=== PATIENT | female | born 1990 | race Caucasian/White ===

== ENCOUNTER 2025-07-20 09:51 | Outpatient (CLI) | payer MEDICAID, SELFPAY ==
--- OUTSIDE RECORDS SUMMARY | 2025-07-08 09:00 | XMS_ITS | Encounter Summary ---
Author Organization [facility] ([place], [place], [place], [place], [place]) Address [address] [place] [address] Care Team Providers Care Casting Director Name Role Phone Jennifer Rowe DO Primary Care Provider [phone] Carolann Marion APRN, CN Unavailable [phone] Reason for Referral * Ultrasound (Routine) - Closed Specialty Diagnoses / Procedures Referred By Sidra t Referred To Contact Radiology Diagnoses Abnormal mammogram Procedures US BREAST LEFT LIMITED Shanti Buck MD [address] [place] [address] Phone: tel: fax: [address] [address] Phone: tel: fax: Referral ID Status Reason Start Date Expiration Date Visits Re quested Visits Authorized [id number] Closed 06/28/2025 06/28/2026 1 1 Reason for Visit * Ultrasound (Routine) - Closed Specialty Diagnoses / Procedures Referred By Contjean-paul t Referred To Contact Radiology Diagnoses Abnormal mammogram Procedures [place] [address] [place] [address] Phone: tel: fax: [address] [address] [place] [address] Phone: tel: fax: Referral ID Status Reason Start Date Expiration Date Visits Re quested Visits Authorized [id number] Closed 06/28/2025 06/28/2026 1 1 Encounter Details Date Type Department Care Team (Latest Contact Info) Description 07/08/2025 10:00 AM EDT - 07/08/2025 10:59 PM EDT Hospital Encounter [facility] Breast Care [address] [facility] [address] [place] [address] Jennifer Roew, [address] [place] [address] Abnormal mammogram Discharge Disposition: Home [...] Do you speak a language other than Fijian at [facility]? No 03/09/2024 Do you want help with [...] Care Everywhere. * Mood and Anxiety Disorder (Fijian) documented in this encounter Medications at Time [...] as of this encounter Plan of Treatment Upcoming Encounters Date Type Department Care Team (Late st Contact Info) Description 07/26/2025 7:30 AM EST Appointment [address] [address] documented as of this encounter Procedures Procedure [...] recommended imaging studies/procedures. us Shanti Buck MD [facility] US ORDERABLES Final Result documented in this encounter Visit Diagnoses Diagnosis Abnormal mammogram Abnormal mammogram, unspecified documented in this encounter Care Teams Casting Director Relationship Specialty Start Date End Date Jennifer Rowe DO [address] [place] [address] PCP - General Obstetrics and Gynecology 10/11/24 Carolann Marion, HARNESS AND BAG INSPECTOR, CNM [address] [place] [address] Perianesthesia Manager Certified Nurse Perianesthesia Manager 10/11/24 documented as of this encounter
[2025-07-20 20:18] LABS: Coronavirus 19, PCR Not Detected (NotDetected); Influenza A, PCR Not Detected (NotDetected); Influenza B, PCR Not Detected (NotDetected)
--- OUTSIDE RECORDS SUMMARY | 2025-07-22 10:00 | XMS_ITS | Encounter Summary ---
Author Organization [facility] ([place], [place], [place], [place], [place]) Address [address] [place] [address] Care Team Providers Care Data Network Architect Name Role Phone Jennifer Rowe DO Primary Care Provider [phone] Carolann Marion APRN, CN Unavailable [phone] Encounter Details Date Type Department Care Team (Late st Contact Info) Description 11/18/2019 Transcribed Document [facility] [place] [facility] [place] [address] ProviderMiguel MD [address] [place] [address] Social History Tobacco Use Types Packs/Day Years Used Date Smoking Tobacco: Never Assessed Comments Unknown Sex and Gender Information Value Date Recorded Sex Assigned at Not on file Legal Sex Female 5:46 PM CDT Gender Identity Not on file Sexual Orientation Not on file documented as of this encounter Miscellaneous Notes * Cerner Conversion Note - Miguel ProviderMD - 11/18/2019 12:00 AM CALCULATING MACHINE MECHANIC Pain Assessment Entered On: 11/17/2019 23:27 EST Performed On: 11/18/2019 0:27 EST by CHAIM ELIAS RN Intervention Information: ibuprofen Performed by CHAIM ELIAS RN on 11/17/2019 23:27:00 EST ibuprofen,600mg Oral Pain Assessment Pain Assessment : Follow-up assessment Pain Improved by Intervention : Yes CHAIM ELIAS RN - 11/17/2019 23:27 EST Electronically signed by [facility] Conversion Manager Wound Cerner at 12/29/2022 8:17 PM CDT documented in this encounter Plan of Treatment Upcoming Encounters Date Type Department Care Team (Late st Contact Info) Description 07/26/2025 7:30 AM EST Appointment [facility] [address] [facility] [address] [place] [address] documented as of this encounter Visit Diagnoses Not on filedocumented in this encounter Care Teams Data Network Architect Relationship Specialty Start Date End Date Jennifer Rowe DO [address] [place] [address] PCP - General Obstetrics and Gynecology 10/11/24 Carolann Marion, TOMI, CNM [address] [place] [address] Direct Mail Clerk Certified Nurse Direct Mail Clerk 10/11/24 documented as of this encounter
--- OUTSIDE RECORDS SUMMARY | 2025-07-22 10:00 | XMS_ITS | Encounter Summary ---
Author Organization [employer] ([place], [place], [place], [place], [place]) Address [address] [place] [address] Care Team Providers Care Milker Machine Name Role Phone RoweJennifer devi DO Primary Care Provider [phone] Carolann Marion APRN, CN Unavailable [phone] Encounter Details Date Type Department Care Team (Late st Contact Info) Description 11/18/2019 Transcribed Document [facility] [place] [address] ProviderMiguel MD [address] [place] [id number] Social History Tobacco Use Types Packs/Day Years Used Date Smoking Tobacco: Never Assessed Comments Unknown Sex and Gender Information Value Date Recorded Sex Assigned at Not on file Legal Sex Female 5:46 PM CDT Gender Identity Not on file Sexual Orientation Not on file documented as of this encounter Miscellaneous Notes * Cerner Conversion Note - Miguel ProviderMD - 11/18/2019 9:40 AM WREATH AND GARLAND MAKER Patient: LOVELY HARGROVE Age: 29 Years Sex: Female : 1990 Chief Complaint: PO PP Day #2, s/p emergency primary c/s for breech presentation Subjective Pt has no c/o today, denies s/s PPH or PPD. Pt states she is ambulating and voiding without difficulty. Pt states she is breast feeding and baby is doing well. Pt states her pain is well controlled. Review of Systems VSS, Afebrile Objective General: Pt is AA&ox4, in NAD, wd/wn, responds appropriately Breast: soft, non tender Cardiovascular: RRR without gallop or rub Lungs: CTA, b/l A&P Abdomen: soft, mildly tender over incision Ext: MAEW, no peripheral edema Incision/Episiotomy/Lac: covered with dry dressing Assessment/Plan PO PP Day #2, will continue current POC 38 weeks gestation of Z3A.38 Bariatric surgery status complicating childbirth O99.844 Breech presentation O32.1XX0 delivery delivered O82 Encounter for supervision of normal first , unspecified trimester Z34.00, Encounter for supervision of normal first , unspecified trimester Z34.00 Hypothyroid in , antepartum O99.280 Single live Z37.0 1. Encourage ambulation/incentive spirometry every 15 minutes 2. DVT Prophylaxis 3. Tobacco abuse assessment: Smoker Yes(_)/No(X), If yes, plan: 4. control discussion and choice: will discuss at PPV 5. Feeding choice: Breast 6. Vaccinations: 7. Return appointment: 1-[address] Rowe 8. depression follow-up plan: at d/c and PPV 9. Two hour OGTT scheduled for 6 week visit: Yes(_)/No(_) Infant Data [place] (X) NICU (_) Medications Inpatient aluminum hydroxide/magnesium hydroxide/simethicone 200 mg-200 mg-20 mg/5 mL oral suspension, 30 mL, Oral, Q4H, PRN Ambien, 5 mg= 1 Tab, Oral, At Bedtime, PRN Colace, 100 mg= 1 Cap, Oral, TID Cytotec, 1000 mcg= 5 Tab, Rectal, 1-Time, PRN Dermoplast 20% topical spray, 1 [place], Topical, Q4H, PRN Dextrose 5% in Lactated Ringers intravenous solution 1,000 mL, 1000 mL, IntraVENous Dulcolax Laxative, 10 mg= 1 Supp, Rectal, BID, PRN Hemabate, 250 mcg= 1 mL, IntraMuscular, 1-Time, PRN hydrocortisone-pramoxine 1%-1% rectal cream, 1 Application, Rectal, Q4H, PRN ibuprofen, 600 mg= 1 Tab, Oral, Q6H lanolin topical ointment, 1 Application, Topical, See Comment, PRN measles/mumps/rubella virus vaccine, 0.5 mL, SubCutaneous, 1-Time, PRN Methergine, 0.2 mg= 1 mL, IntraMuscular, 1-Time, PRN Mylicon, 80 mg= 1 Tab, Chew, TID Normal Saline Flush, 10 mL, IV Push, See Comment, PRN Pepcid, 20 mg= 1 Tab, Oral, Q12H, PRN Percocet 5/325 oral tablet, 1 Tab, Oral, Q4H, PRN Percocet 5/325 oral tablet, 2 Tab, Oral, Q4H, PRN Phenergan, 12.5 mg= 0.5 mL, IV Push, Q6H, PRN Multivitamins oral tablet, 1 Tab, Oral, Daily RHo (D) immune globulin, 1500 Units= 2 mL, IntraMuscular, 1-Time, PRN tetanus/diphth/pertuss (Tdap) adult/adol, 0.5 mL, IntraMuscular, 1-Time, PRN Tucks 50% topical pad, 1 Each, Topical, See Comment, PRN Tylenol, 1000 mg= 2 Tab, Oral, Q6H, PRN Zofran, 4 mg= 2 mL, IV Push, Q4H, PRN Home multivitamin, 1 Tab, Oral, Daily Non Formulary med Synthroid, 50 mcg, Oral, Daily Zofran ODT 4 mg oral tablet, disintegrating, 4 mg= 1 Tab, Oral, Q6H Problem List/Past Medical History Ongoing Acid reflux Adenomyosis Heavy periods with cramping Hx: Migraine headaches Hypothyroid Obesity PCOS (polycystic ovarian syndrome) Pelvic pain in female Psoriasis Wears glasses Historical No qualifying data Lab Results NOV 16 05:35 \ L 9.9 / H 11.7 190 / L 29.9 \ documented in this encounter Plan of Treatment Upcoming Encounters Date Type Department Care Team (Late st Contact Info) Description 07/26/2025 7:30 AM EST Appointment [address] [address] documented as of this encounter Visit Diagnoses Not on filedocumented in this encounter Care Teams Milker Machine Relationship Specialty Start Date End Date Jennifer Rowe DO [address] [place] [address] PCP - General Obstetrics and Gynecology 10/11/24 Carolann Marion, SIGNAL MAINTAINER, CNM [address] [place] [address] Cloth Weigher Certified Nurse Cloth Weigher 10/11/24 documented as of this encounter
--- OUTSIDE RECORDS SUMMARY | 2025-07-22 10:00 | XMS_ITS | Encounter Summary ---
Author Organization [facility] ([place], [place], [place], [place], [place]) Address [address] [place] [address] Care Team Providers Care Resource Efficiency Manager Name Role Phone Jennifer Rowe DO Primary Care Provider [phone] Carolann Marion APRN, GERTRUDE Unavailable [phone] Encounter Details Date Type Department Care Team (Late st Contact Info) Description 11/26/2019 Transcribed Document [facility] [place] [facility] [place] [address] ProviderMiguel MD [address] [place] [address] Social History Tobacco Use Types Packs/Day Years Used Date Smoking Tobacco: Never Assessed Comments Unknown Sex and Gender Information Value Date Recorded Sex Assigned at Not on file Legal Sex Female 5:46 PM CDT Gender Identity Not on file Sexual Orientation Not on file documented as of this encounter Miscellaneous Notes * Cerner Conversion Note - Miguel ProviderMD - 11/26/2019 12:15 PM CDT HISTORY AND PHYSICAL UPDATE Update Required: The appropriate section below MUST be completed prior to authentication. ____X_UPDATE: The History and Physical performed by ___Jennifer Lugo DO on ___11/26/19 has been reviewed, patient was examined, and no change has occurred since the History and Physical was completed. OR UPDATE: The History and Physical performed by on has been reviewed and patient examined. The only significant change(s) in the patient's history or condition since the History and Physical was completed are indicated below: Significant Changes: Electronically signed by [facility] Conversion Nurse Practitioner Physicians Assistant Cerner at 12/29/2022 8:17 PM CDT documented in this encounter Plan of Treatment Upcoming Encounters Date Type Department Care Team (Late st Contact Info) Description 07/26/2025 7:30 AM EST Appointment [facility] [address] [facility] [address] [place] [address] documented as of this encounter Visit Diagnoses Not on filedocumented in this encounter Care Teams Resource Efficiency Manager Relationship Specialty Start Date End Date Jennifer Rowe DO [address] [place] [address] PCP - General Obstetrics and Gynecology 10/11/24 Carolann Marion, AUXILIARY POWERPLANT OPERATOR, CNM [address] [place] [address] Supervisor [employer] Certified Nurse Supervisor [employer] 10/11/24 documented as of this encounter
--- OUTSIDE RECORDS SUMMARY | 2025-07-22 10:00 | XMS_ITS | Encounter Summary ---
Author Organization [employer] ([place], [place], [place], [place], [place]) Address [address] [place] [address] Care Team Providers Care Director Medical Science Name Role Phone Jennifer Rowe DO Primary Care Provider [phone] Carolann Marion APRN, CN Unavailable [phone] Encounter Details Date Type Department Care Team (Late st Contact Info) Description 11/16/2019 Transcribed Document [facility] [place] [facility] [place] [address] ProviderMiguel MD [address] [place] [address] Social History Tobacco Use Types Packs/Day Years Used Date Smoking Tobacco: Never Assessed Comments Unknown Sex and Gender Information Value Date Recorded Sex Assigned at Not on file Legal Sex Female 5:46 PM CDT Gender Identity Not on file Sexual Orientation Not on file documented as of this encounter Miscellaneous Notes * Cerner Conversion Note - Historical ProviderMD - 11/16/2019 1:37 AM BLACKTOP SPREADER Admission Data, OB Entered On: 11/16/2019 1:39 EST Performed On: 11/16/2019 1:37 EST by Ratna White RN Advance Directive Patient has Advance Directive *Q : No, patient refuses Advance Directive information Ratna White RN - 11/16/2019 1:37 EST Height and Weight Height Source : Measured Height Entry Format : [place] Height, Feet : 5 ft(Converted to: 152 cm, 60 Inch) Clinical Height : 152.4 cm Height, Inches : 0 Inch(Converted to: 0 ft 0 Inch, 0.00 cm) Weight Source : Standing scale Weight Entry Format : [place] Weight, Pounds : 185 lb Clinical Dosing Weight : 84.09 kg Body Surface Area (BSA) : 1.81 m2 Body Mass Index : 36.2 kg/m2 (HI) [place] Body Weight (IBW) : 45.16 kg Ratna White RN - 11/16/2019 1:37 EST Health Histories Smoking Status : Never (less than 100 in lifetime; none in last 30 days) Smokeless Tobacco Status : Never Ratna White RN - 11/16/2019 1:37 EST Social History (As Of: 11/16/2019 01:39:26 EST) Tobacco: Smoking Status Never smoker. (Last Updated: 09/05/2014 04:10:11 EST by SAMMI CHI RN) Alcohol: Use in Last 12 Months: No. (Last Updated: 09/05/2014 04:10:15 EST by SAMMI CHI RN) Substance Abuse: Drug Use Hx: No. Use in Last 12 Months: No. (Last Updated: 12/27/2016 12:43:05 EDT by Shreya Ohara RN) Nutrition/Health: Type of diet: low carb. Caffeine intake amount: none. Wants to lose weight: Yes. (Last Updated: 09/03/2017 09:35:07 EST by GEOVANY DAVIDSON, TORIBIO) Home/Environment: Lives with roommate and her children. Living situation: Home/Independent. Alcohol abuse in household: No. Substance abuse in household: No. Smoker in household: No. Injuries/Abuse/Neglect in household: No. Family/Friends available for support: Yes. (Last Updated: 09/03/2017 09:35:58 EST by GEOVANY DAVIDSON, TORIBIO) Employment/School: Employed (Last Updated: 09/05/2014 04:11:22 EST by CARLITA LOPEZ MD) Tetanus Immunization Status Previous Tetanus Immunizations : No qualifying data available. Tetanus Immunization : Less than 5 years Ratna White RN - 11/16/2019 1:37 EST Influenza Vaccine Asmt, Adult Previous Vaccines from Immunization Schedule : No qualifying data available. Influenza Immunization, Current Season : Yes Ratna White RN - 11/16/2019 1:37 EST Pneumococcal Vaccine Previous Vaccines from Immunization Schedule : No qualifying data available. Pneumonia Immunization Received : No Pneumococcal Risk Assessment < Age 65 : None Ratna White RN - 11/16/2019 1:37 EST Order Details Transport Mode Order Detail : Ambulatory Isolation Precautions Order Detail : Standard Precautions Order Detail : 1 IV Order Detail : 1 Oxygen Order Detail : 0 Nurse Collect Order Detail : 0 Lift/Transfer : Independent Central Line Order Detail : No Room Service : Appropriate Arterial Line : No Ratna White RN - 11/16/2019 1:37 EST Vital Measurements Temperature Source : Oral Temperature Mode : Fahrenheit Temperature, Fahrenheit : 98.2 Deg F Clinical Temperature, C : 36.8 Deg C Pulse Method : Non-Invasive BP Device Heart Rate, Apical : 92 bpm Pulse Rhythm : Regular Respiratory Rate : 15 Breaths/Min Blood Pressure Location : Arm, left upper Blood Pressure Source : Doppler Blood Pressure Position : Sitting Systolic Blood Pressure : 135 mmHg Diastolic Blood Pressure : 89 mmHg Ratna White RN - 11/16/2019 1:37 EST Infectious Disease History Physical contact outside [place] in the last 30 days : No Infectious Disease History : Chicken pox/Shingles, Influenza Ratna White RN - 11/16/2019 1:37 EST Ovid Suicide Severity Rating Scale (C-SSRS) CSSRS Past Month Wish to be : No CSSRS Past Month Suicidal Thoughts : No CSSRS Lifetime Suicide Behavior : No Suicide Severity Rating Score : 0 Suicide Severity Rating : No Additional Care Required at this time Ratna White RN - 11/16/2019 1:37 EST documented in this encounter Plan of Treatment Upcoming Encounters Date Type Department Care Team (Late st Contact Info) Description 07/26/2025 7:30 AM EST Appointment [facility] [address] [place] [address] documented as of this encounter Visit Diagnoses Not on filedocumented in this encounter Care Teams Director Medical Science Relationship Specialty Start Date End Date Jennifer Rowe DO [address] [place] [address] PCP - General Obstetrics and Gynecology 10/11/24 Carolann Marion APRN, CNEduard [address] [address] Plumbing Assembler Certified Nurse Plumbing Assembler 10/11/24 documented as of this encounter
--- OUTSIDE RECORDS SUMMARY | 2025-07-22 10:00 | XMS_ITS | Encounter Summary ---
Author Organization [employer] ([place], [place], [place], [place], [place]) Address [address] [place] [address] Care Team Providers Care Stock Fitter Name Role Phone Jennifer Rowe DO Primary Care Provider [phone] Carolann Marion APRN, CN Unavailable [phone] Encounter Details Date Type Department Care Team (Late st Contact Info) Description 11/18/2019 Transcribed Document [facility] [place] Medicine [facility]ly [facility] [place] [address] ProviderMiguel MD [address] [place] [address] Social History Tobacco Use Types Packs/Day Years Used Date Smoking Tobacco: Never Assessed Comments Unknown Sex and Gender Information Value Date Recorded Sex Assigned at Not on file Legal Sex Female 5:46 PM CDT Gender Identity Not on file Sexual Orientation Not on file documented as of this encounter Miscellaneous Notes * Cerner Conversion Note - Miguel ProviderMD - 11/18/2019 6:00 AM ASSEMBLY LINE UPHOLSTERER Pain Assessment Entered On: 11/18/2019 5:29 EST Performed On: 11/18/2019 6:28 EST by CHAIM ELIAS RN Intervention Information: ibuprofen Performed by CHAIM ELIAS RN on 11/18/2019 05:28:00 EST ibuprofen,600mg Oral Pain Assessment Pain Assessment : Follow-up assessment Pain Improved by Intervention : Yes CHAIM ELIAS RN - 11/18/2019 5:28 EST Electronically signed by [facility] Conversion Traffic Control Signaler Cerner at 12/29/2022 8:34 PM CDT documented in this encounter Plan of Treatment Upcoming Encounters Date Type Department Care Team (Late st Contact Info) Description 07/26/2025 7:30 AM EST Appointment [facility] [address] [facility] [address] [place] [address] documented as of this encounter Visit Diagnoses Not on filedocumented in this encounter Care Teams Stock Fitter Relationship Specialty Start Date End Date Jennifer Rowe DO [address] [place] [address] PCP - General Obstetrics and Gynecology 10/11/24 Carolann Marion, TOMI, CNM [address] [place] [address] Field Investigator Certified Nurse Field Investigator 10/11/24 documented as of this encounter
--- OUTSIDE RECORDS SUMMARY | 2025-07-22 10:00 | XMS_ITS | Encounter Summary ---
Author Organization [employer] ([place], [place], [place], [place], [place]) Address [address] [place] [address] Care Team Providers Care Factory Maintenance Manager Name Role Phone Rowe, Amy Primary Care Provider [phone] Carolann Marion APRN, CN Unavailable [phone] Encounter Details Date Type Department Care Team (Late st Contact Info) Description 11/19/2019 Transcribed Document [facility] [place] [facility] [place] [address] ProviderMiguel MD [address] [place] [id number] Social History Tobacco Use Types Packs/Day Years Used Date Smoking Tobacco: Never Assessed Comments Unknown Sex and Gender Information Value Date Recorded Sex Assigned at Not on file Legal Sex Female 5:46 PM CDT Gender Identity Not on file Sexual Orientation Not on file documented as of this encounter Miscellaneous Notes * Cerner Conversion Note - Miguel ProviderMD - 11/19/2019 9:40 AM HOSPITAL SOCIAL WORKER Patient: LOVELY [place]GR[place] Age: 29 Years Sex: Female : 1990 Admit Date 11/16/2019 01:11 Discharge Date 11/19/2019 11:35 Primary Care Provider JIME[facility] DAS [facility] Discharge Diagnosis Single live 11/17/2019 Z37.0 ICD-10-CM delivery delivered 11/16/2019 O82 ICD-10-CM Procedures Emergent primary c/s for breech presentation Studies H&H 9.9.9 Reason for Hospitalization Labor Hospital Course C/S with PP care Vital Signs Oxygen Settings (Last) No qualifying data available. VSS, Afebrile Physical Exam Pt has no c/o today, denies s/s PPH or PPD. Pt states she is breast feeding and baby is doing well. Pt states she is voiding and ambulating without difficulty. Pt states her pain is well controlled. General: Pt is AA&ox4, in NAD, wd/wn, responds appropriately CV: RRR without gallop or rub LUNGS: CTA, b/l A&P BREASTS: soft, non tender ABD: soft non tender, uterus is firm at 1 below MAEW, no peripheral edema Discharge Disposition Home Discharge Follow Up JENNIFER ROWE DO - 08:45 AM Discharge Medications (8) Active Colace 100 mg oral capsule 100 mg = 1 Cap, Oral, TID Dermoplast 20% topical spray 1 [place], PRN, Topical, Q4H hydrocortisone-pramoxine 1%-1% rectal cream 1 Application, PRN, Rectal, Q4H lanolin topical ointment , PRN, Topical, See Comment multivitamin 1 Tab, Oral, Daily Non Formulary med Synthroid 50 mcg, Oral, Daily Tucks 50% topical pad 1 Each, PRN, Topical, See Comment Rx IB 800mg 1 po every 8 hours as needed, #30 with 2 refills, Percocet 5/325mg 1 po every 6 hours as needed, #12 no refill Code Status Start: 11/16/19 9:29:00 EST, Full Code, Continuous Order Condition on Discharge Stable Consulting Physicians DORIS HERNANDES MD-ANS Current Diet Order Diet, Adult - Ordered -- Start: 11/16/19 23:57:00 EST, Regular Diet, Isolation: Standard Precautions Patient Discharge Summary Orders Sooner if problems Follow Up Labs/Studies None Pending Labs No Labs on Record Time Spent on Discharge < 30 minutes documented in this encounter Plan of Treatment Upcoming Encounters Date Type Department Care Team (Late st Contact Info) Description 07/26/2025 7:30 AM EST Appointment [address] [place] [address] documented as of this encounter Visit Diagnoses Not on filedocumented in this encounter Care Teams Factory Maintenance Manager Relationship Specialty Start Date End Date Jennifer Rowe DO [address] [place] [address] PCP - General Obstetrics and Gynecology 10/11/24 Carolann Marion, TOMI, CNM [address] [place] [address] Teacher Asst Certified Nurse Teacher Asst 10/11/24 documented as of this encounter
--- OUTSIDE RECORDS SUMMARY | 2025-07-22 10:00 | XMS_ITS | Encounter Summary ---
Author Organization [employer] ([place], [place], [place], [place], [place]) Address [address] [place] [address] Care Team Providers Care Assembly Line Upholsterer Name Role Phone RoweJennifer devi DO Primary Care Provider [phone] Carolann Marion APRN, CN Unavailable [phone] Encounter Details Date Type Department Care Team (Late st Contact Info) Description 11/19/2019 Transcribed Document [facility] [place] [facility] [place] [address] ProviderMiguel MD [address] [place] [id number] Social History Tobacco Use Types Packs/Day Years Used Date Smoking Tobacco: Never Assessed Comments Unknown Sex and Gender Information Value Date Recorded Sex Assigned at Not on file Legal Sex Female 5:46 PM CDT Gender Identity Not on file Sexual Orientation Not on file documented as of this encounter Miscellaneous Notes * Cerner Conversion Note - Miguel Juarez MD - 11/19/2019 10:00 AM [facility] ARCHITECT Patient Education Materials Follows: Delivery, Care After Refer to this sheet in the next few weeks. These instructions provide you with information about caring for yourself after your procedure. Your health care provider may also give you more specific instructions. Your treatment has been planned according to current medical practices, but problems sometimes occur. Call your health care provider if you have any problems or questions after your procedure. What can I expect after the procedure? After the procedure, it is common to have: ??? A small amount of blood or clear fluid coming from the incision. ??? Some redness, swelling, and pain in your incision area. ??? Some abdominal pain and soreness. ??? Vaginal bleeding (lochia). ??? Pelvic cramps. ??? Fatigue. Follow these instructions at home: Incision care ??? Follow instructions from your health care provider about how to take care of your incision. Make sure you: ? Wash your hands with soap and water before you change your bandage (dressing). If soap and water are not available, use hand branch chief. ? If you have a dressing, change it as told by your health care provider. ? Leave stitches (sutures), skin arthur, skin glue, or adhesive strips in place. These skin closures may need to stay in place for 2 weeks or longer. If adhesive strip edges start to loosen and curl up, you may trim the loose edges. Do not remove adhesive strips completely unless your health care provider tells you to do that. ??? Check your incision area every day for signs of infection. Check for: ? More redness, swelling, or pain. ? More fluid or blood. ? Warmth. ? Pus or a bad smell. ??? When you cough or sneeze, hug a pillow. This helps with pain and decreases the chance of your incision opening up (dehiscing). Do this until your incision heals. Medicines ??? Take nwht-upu-ixmjcug and prescription medicines only as told by your health care provider. ??? If you were prescribed an antibiotic medicine, take it as told by your health care provider. Do not stop taking the antibiotic until it is finished. Driving ??? Do not drive or operate heavy machinery while taking prescription pain medicine. Lifestyle ??? Do not drink alcohol. This is especially important if you are or taking pain medicine. ??? Do not use tobacco products, including cigarettes, chewing tobacco, or e-cigarettes. If you need help quitting, ask your health care provider. Tobacco can delay wound healing. Eating and drinking ??? Drink at least 8 eight-ounce glasses of water every day unless told not to by your health care provider. If you breastfeed, you may need to drink more water than this. ??? Eat high-fiber foods every day. These foods may help prevent or relieve constipation. High-fiber foods include: ? Whole grain cereals and breads. ? Brown rice. ? Beans. ? Fresh fruits and vegetables. Activity ??? Return to your normal activities as told by your health care provider. Ask your health care provider what activities are safe for you. ??? Rest as much as possible. Try to rest or take a nap while your baby is sleeping. ??? Do not lift anything that is heavier than your baby or 10 lb (4.5 kg) as told by your health care provider. ??? Ask your health care provider when you can engage in sexual activity. This may depend on your: ? Risk of infection. ? Healing rate. ? Comfort and desire to engage in sexual activity. Bathing ??? Do not take baths, swim, or use a hot tub until your health care provider approves. Ask your health care provider if you can take showers. You may only be allowed to take sponge baths until your incision heals. General instructions ??? Do not use tampons or douches until your health care provider approves. ??? Wear: ? Loose, comfortable clothing. ? A supportive and well-fitting bra. ??? Watch for any blood clots that may pass from your vagina. These may look like clumps of dark red, brown, or black discharge. ??? Keep your perineum clean and dry as told by your health care provider. ??? Wipe from front to back when you use the toilet. ??? If possible, have someone help you care for your baby and help with household activities for a few days after you leave the hospital. ??? Keep all follow-up visits for you and your baby as told by your health care provider. This is important. Contact a health care provider if: ??? You have: ? Bad-smelling vaginal discharge. ? Difficulty urinating. ? Pain when urinating. ? A sudden increase or decrease in the frequency of your bowel movements. ? More redness, swelling, or pain around your incision. ? More fluid or blood coming from your incision. ? Pus or a bad smell coming from your incision. ? A fever. ? A rash. ? Little or no interest in activities you used to enjoy. ? Questions about caring for yourself or your baby. ? Nausea. ??? Your incision feels warm to the touch. ??? Your breasts turn red or become painful or hard. ??? You feel unusually sad or worried. ??? You vomit. ??? You pass large blood clots from your vagina. If you pass a blood clot, save it to show to your health care provider. Do not flush blood clots down the toilet without showing your health care provider. ??? You urinate more than usual. ??? You are dizzy or light-headed. ??? You have not breastfed and have not had a menstrual period for 12 weeks after delivery. ??? You stopped and have not had a menstrual period for 12 weeks after stopping . Get help right away if: ??? You have: ? Pain that does not go away or get better with medicine. ? Chest pain. ? Difficulty breathing. ? Blurred vision or spots in your vision. ? Thoughts about hurting yourself or your baby. ? New pain in your abdomen or in one of your legs. ? A severe headache. ??? You faint. ??? You bleed from your vagina so much that you fill two sanitary pads in one hour. This information is not intended to replace advice given to you by your health care provider. Make sure you discuss any questions you have with your health care provider. Document Released: 05/24/2003 Document Revised: 10/04/2017 Document Reviewed: 08/05/2016 [employer] Interactive Patient Education ? 2018 [employer] Choosing to breastfeed is one of the best decisions you can make for yourself and your baby. A change in hormones during causes your breasts to make breast milk in your milk-producing glands. Hormones prevent breast milk from being released before your baby is born. They also prompt milk flow after . Once has begun, thoughts of your baby, as well as his or her sucking or crying, can stimulate the release of milk from your milk-producing glands. Benefits of Research shows that offers many health benefits for infants and mothers. It also offers a cost-free and convenient way to feed your baby. For your baby ??? Your first milk (colostrum) helps your baby's digestive system to function better. ??? Special cells in your milk (antibodies) help your baby to fight off infections. ??? Breastfed babies are less likely to develop asthma, allergies, obesity, or type 2 diabetes. They are also at lower risk for sudden infant syndrome (SIDS). ??? Nutrients in breast milk are better able to meet your baby?s needs compared to infant formula. ??? Breast milk improves your baby's brain development. For you ??? helps to create a very special lucero between you and your baby. ??? is convenient. Breast milk costs nothing and is always available at the correct temperature. ??? helps to burn calories. It helps you to lose the weight that you gained during . ??? makes your uterus return faster to its size before . It also slows bleeding (lochia) after you give . ??? helps to lower your risk of developing type 2 diabetes, osteoporosis, rheumatoid arthritis, cardiovascular disease, and breast, ovarian, uterine, and endometrial cancer later in life. basics Starting ??? Find a comfortable place to sit or lie down, with your neck and back well-supported. ??? Place a pillow or a rolled-up blanket under your baby to bring him or her to the level of your breast (if you are seated). Nursing pillows are specially designed to help support your arms and your baby while you breastfeed. ??? Make sure that your baby's tummy (abdomen) is facing your abdomen. ??? Gently massage your breast. With your fingertips, massage from the outer edges of your breast inward toward the nipple. This encourages milk flow. If your milk flows slowly, you may need to continue this action during the feeding. ??? Support your breast with 4 fingers underneath and your thumb above your nipple (make the letter C with your hand). Make sure your fingers are well away from your nipple and your baby?s mouth. ??? Stroke your baby's lips gently with your finger or nipple. ??? When your baby's mouth is open wide enough, quickly bring your baby to your breast, placing your entire nipple and as much of the areola as possible into your baby's mouth. The areola is the colored area around your nipple. ? More areola should be visible above your baby's upper lip than below the lower lip. ? Your baby's lips should be opened and extended outward (flanged) to ensure an adequate, comfortable latch. ? Your baby's tongue should be between his or her lower gum and your breast. ??? Make sure that your baby's mouth is correctly positioned around your nipple (latched). Your baby's lips should create a seal on your breast and be turned out (everted). ??? It is common for your baby to suck about 2?3 minutes in order to start the flow of breast milk. Latching Teaching your baby how to latch onto your breast properly is very important. An improper latch can cause nipple pain, decreased milk supply, and poor weight gain in your baby. Also, if your baby is not latched onto your nipple properly, he or she may swallow some air during feeding. This can make your baby fussy. Burping your baby when you switch breasts during the feeding can help to get rid of the air. However, teaching your baby to latch on properly is still the best way to prevent fussiness from swallowing air while . Signs that your baby has successfully latched onto your nipple ??? Silent tugging or silent sucking, without causing you pain. Infant's lips should be extended outward (flanged). ??? Swallowing heard between every 3?4 sucks once your milk has started to flow (after your let-down milk reflex occurs). ??? Muscle movement above and in front of his or her ears while sucking. Signs that your baby has not successfully latched onto your nipple ??? Sucking sounds or smacking sounds from your baby while . ??? Nipple pain. If you think your baby has not latched on correctly, slip your finger into the corner of your baby?s mouth to break the suction and place it between your baby's gums. Attempt to start again. Signs of successful Signs from your baby ??? Your baby will gradually decrease the number of sucks or will completely stop sucking. ??? Your baby will fall asleep. ??? Your baby's body will relax. ??? Your baby will retain a small amount of milk in his or her mouth. ??? Your baby will let go of your breast by himself or herself. Signs from you ??? Breasts that have increased in firmness, weight, and size 1?3 hours after feeding. ??? Breasts that are softer immediately after . ??? Increased milk volume, as well as a change in milk consistency and color by the fifth day of . ??? Nipples that are not sore, cracked, or bleeding. Signs that your baby is getting enough milk ??? Wetting at least 1?2 diapers during the first 24 hours after . ??? Wetting at least 5?6 diapers every 24 hours for the first week after . The urine should be clear or pale yellow by the age of 5 days. ??? Wetting 6?8 diapers every 24 hours as your baby continues to grow and develop. ??? At least 3 stools in a 24-hour period by the age of 5 days. The stool should be soft and yellow. ??? At least 3 stools in a 24-hour period by the age of 7 days. The stool should be seedy and yellow. ??? No loss of weight greater than 10% of weight during the first 3 days of life. ??? Average weight gain of 4?7 oz (113?198 g) per week after the age of 4 days. ??? Consistent daily weight gain by the age of 5 days, without weight loss after the age of 2 weeks. After a feeding, your baby may spit up a small amount of milk. This is normal. frequency and duration Frequent feeding will help you make more milk and can prevent sore nipples and extremely full breasts (breast engorgement). Breastfeed when you feel the need to reduce the fullness of your breasts or when your baby shows signs of hunger. This is called on demand. Signs that your baby is hungry include: ??? Increased alertness, activity, or restlessness. ??? Movement of the head from side to side. ??? Opening of the mouth when the corner of the mouth or cheek is stroked (rooting). ??? Increased sucking sounds, smacking lips, cooing, sighing, or squeaking. ??? Hplg-xr-pwllp movements and sucking on fingers or hands. ??? Fussing or crying. Avoid introducing a pacifier to your baby in the first 4-6 weeks after your baby is born. After this time, you may choose to use a pacifier. Research has shown that pacifier use during the first year of a baby's life decreases the risk of sudden infant syndrome (SIDS). Allow your baby to feed on each breast as long as he or she wants. When your baby unlatches or falls asleep while feeding from the first breast, offer the second breast. Because newborns are often sleepy in the first few weeks of life, you may need to awaken your baby to get him or her to feed. times will vary from baby to baby. However, the following rules can serve as a guide to help you make sure that your baby is properly fed: ??? Newborns (babies 4 weeks of age or younger) may breastfeed every 1?3 hours. ??? Newborns should not go without for longer than 3 hours during the day or 5 hours during the night. ??? You should breastfeed your baby a minimum of 8 times in a 24-hour period. Breast milk pumping Pumping and storing breast milk allows you to make sure that your baby is exclusively fed your breast milk, even at times when you are unable to breastfeed. This is especially important if you go back to work while you are still , or if you are not able to be present during feedings. Your bus info consultant can help you find a method of pumping that works best for you and give you guidelines about how long it is safe to store breast milk. Caring for your breasts while you breastfeed Nipples can become dry, cracked, and sore while . The following recommendations can help keep your breasts moisturized and healthy: ??? Avoid using soap on your nipples. ??? Wear a supportive bra designed especially for nursing. Avoid wearing underwire-style bras or extremely tight bras (sports bras). ??? Air-dry your nipples for 3?4 minutes after each feeding. ??? Use only cotton bra pads to absorb leaked breast milk. Leaking of breast milk between feedings is normal. ??? Use lanolin on your nipples after . Lanolin helps to maintain your skin's normal moisture barrier. Pure lanolin is not harmful (not toxic) to your baby. You may also hand express a few drops of breast milk and gently massage that milk into your nipples and allow the milk to air-dry. In the first few weeks after giving , some women experience breast engorgement. Engorgement can make your breasts feel heavy, warm, and tender to the touch. Engorgement peaks within 3?5 days after you give . The following recommendations can help to ease engorgement: ??? Completely empty your breasts while or pumping. You may want to start by applying warm, moist heat (in the shower or with warm, water-soaked hand towels) just before feeding or pumping. This increases circulation and helps the milk flow. If your baby does not completely empty your breasts while , pump any extra milk after he or she is finished. ??? Apply ice packs to your breasts immediately after or pumping, unless this is too uncomfortable for you. To do this: ? Put ice in a plastic bag. ? Place a towel between your skin and the bag. ? Leave the ice on for 20 minutes, 2?3 times a day. ??? Make sure that your baby is latched on and positioned properly while . If engorgement persists after 48 hours of following these recommendations, contact your health care provider or a bus info consultant. Overall health care recommendations while ??? Eat 3 healthy meals and 3 snacks every day. Well-nourished mothers who are need an additional 450?500 calories a day. You can meet this requirement by increasing the amount of a balanced diet that you eat. ??? Drink enough water to keep your urine pale yellow or clear. ??? Rest often, relax, and continue to take your vitamins to prevent fatigue, stress, and low vitamin and mineral levels in your body (nutrient deficiencies). ??? Do not use any products that contain nicotine or tobacco, such as cigarettes and e-cigarettes. Your baby may be harmed by chemicals from cigarettes that pass into breast milk and exposure to secondhand smoke. If you need help quitting, ask your health care provider. ??? Avoid alcohol. ??? Do not use illegal drugs or marijuana. ??? Talk with your health care provider before taking any medicines. These include mwmo-qxc-[id number] and prescription medicines as well as vitamins and herbal supplements. Some medicines that may be harmful to your baby can pass through breast milk. ??? It is possible to become while . If control is desired, ask your health care provider about options that will be safe while your baby. Where to find more information: [employer]: www.llli.org Contact a health care provider if: ??? You feel like you want to stop or have become frustrated with . ??? Your nipples are cracked or bleeding. ??? Your breasts are red, tender, or warm. ??? You have: ? Painful breasts or nipples. ? A swollen area on either breast. ? A fever or chills. ? Nausea or vomiting. ? Drainage other than breast milk from your nipples. ??? Your breasts do not become full before feedings by the fifth day after you give . ??? You feel sad and depressed. ??? Your baby is: ? Too sleepy to eat well. ? Having trouble sleeping. ? More than 1 week old and wetting fewer than 6 diapers in a 24-hour period. ? Not gaining weight by 5 days of age. ??? Your baby has fewer than 3 stools in a 24-hour period. ??? Your baby's skin or the white parts of his or her eyes become yellow. Get help right away if: ??? Your baby is overly tired (lethargic) and does not want to wake up and feed. ??? Your baby develops an unexplained fever. Summary ??? offers many health benefits for infant and mothers. ??? Try to breastfeed your when he or she shows early signs of hunger. ??? Gently tickle or stroke your baby's lips with your finger or nipple to allow the baby to open his or her mouth. Bring the baby to your breast. Make sure that much of the areola is in your baby's mouth. Offer one side and burp the baby before you offer the other side. ??? Talk with your health care provider or bus info consultant if you have questions or you face problems as you breastfeed. This information is not intended to replace advice given to you by your health care provider. Make sure you discuss any questions you have with your health care provider. Document Released: 09/01/2006 Document Revised: 10/03/2017 Document Reviewed: 10/03/2017 [employer] Interactive Patient Education ? 2019 [employer] documented in this encounter Plan of Treatment Upcoming Encounters Date Type Department Care Team (Late st Contact Info) Description 07/26/2025 7:30 AM EST Appointment [facility] [address] [place] [address] documented as of this encounter Visit Diagnoses Not on filedocumented in this encounter Care Teams Assembly Line Upholsterer Relationship Specialty Start Date End Date Jennifer Rowe DO [address] [place] [address] PCP - General Obstetrics and Gynecology 10/11/24 Carolann Marion, FISHER R[employer] NET, CNM [address] [place] [address] Research Specialist Certified Nurse Research Specialist 10/11/24 documented as of this encounter
--- OUTSIDE RECORDS SUMMARY | 2025-07-22 10:00 | XMS_ITS | Encounter Summary ---
Author Organization [facility] ([place], [place], [place], [place], [place]) Address [address] [place] [address] Care Team Providers Care Air Conditioning Technician Name Role Phone Jennifer Rowe DO Primary Care Provider [phone] Carolann Marion APRN, CN Unavailable [phone] Encounter Details Date Type Department Care Team (Late st Contact Info) Description 11/17/2019 Transcribed Document [facility] [place] [facility] [place] [address] ProviderMiguel MD [address] [place] [address] Social History Tobacco Use Types Packs/Day Years Used Date Smoking Tobacco: Never Assessed Comments Unknown Sex and Gender Information Value Date Recorded Sex Assigned at Not on file Legal Sex Female 5:46 PM CDT Gender Identity Not on file Sexual Orientation Not on file documented as of this encounter Miscellaneous Notes * Cerner Conversion Note - Miguel ProviderMD - 11/17/2019 7:40 PM PRODUCTION SUPERVISOR Swing Frame Grinder Operator Details Entered On: 11/17/2019 19:40 EST Performed On: 11/17/2019 19:40 EST by CHAIM ELIAS RN Order Details Transport Mode Order Detail : Ambulatory Isolation Precautions Order Detail : Standard Precautions Order Detail : 0 IV Order Detail : 0 Oxygen Order Detail : 0 Nurse Collect Order Detail : 0 Lift/Transfer : Independent Central Line Order Detail : No Room Service : Appropriate Arterial Line : No CHAIM ELIAS RN - 11/17/2019 19:40 EST documented in this encounter Plan of Treatment Upcoming Encounters Date Type Department Care Team (Late st Contact Info) Description 07/26/2025 7:30 AM EST Appointment [facility] [address] [place] [address] documented as of this encounter Visit Diagnoses Not on filedocumented in this encounter Care Teams Air Conditioning Technician Relationship Specialty Start Date End Date Jennifer Rowe DO [address] [place] [address] PCP - General Obstetrics and Gynecology 10/11/24 Carolann Marion, TOMI, CNM [address] [place] [address] Paint Grinder [employer] Certified Nurse Paint Grinder [place] 10/11/24 documented as of this encounter
--- OUTSIDE RECORDS SUMMARY | 2025-07-22 10:00 | XMS_ITS | Encounter Summary ---
Author Organization [employer] ([place], [place], [place], [place], [place]) Address [address] [place] [address] Care Team Providers Care Suction Worker Name Role Phone Jennifer Rowe DO Primary Care Provider [phone] Carolann Marion APRN, CNM Unavailable [phone] Encounter Details Date Type Department Care Team (Late st Contact Info) Description 11/19/2019 Transcribed Document [facility] [place] [address] ProviderMiguel MD [address] [place] [id number] Social History Tobacco Use Types Packs/Day Years Used Date Smoking Tobacco: Never Assessed Comments Unknown Sex and Gender Information Value Date Recorded Sex Assigned at Not on file Legal Sex Female 5:46 PM CDT Gender Identity Not on file Sexual Orientation Not on file documented as of this encounter Miscellaneous Notes * Cerner Conversion Note - Miguel Juarez MD - 11/19/2019 10:25 AM 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 [address] [address] LOVELY [place]GROVE :1990 Visit Time:11/16/2019 Your Visit Summary Your Care Team Admitting Physician - JENNIFER ROWE DO Attending Physician - JENNIFER ROWE DO Primary Care Physician - JIMENA DAS [facility] Referring Physician - JESSIE, SELF REFERRED Your Diagnosis 38 weeks gestation of Bariatric surgery status complicating childbirth Breech presentation delivery delivered Encounter for supervision of normal first , unspecified trimester, Encounter for supervision of normal first , unspecified trimester Hypothyroid in , antepartum Single live What to do next Instructions From Your Care Team Diet after Discharge: Resume usual diet as tolerated Drink at least 8-10 glasses of water a day Do not drink any alcoholic beverages Add 500 extra calories daily if Eat a 1-2 carbohydrate snack before or during Activity After Discharge:As tolerated,Rest and relax today,No strenuous activities,Nothing in the vagina for 6 weeks Lifting Restrictions: no lifting over 10 lbs Weight Bearing Restrictions:Full weight bearing Minimize Stair Climbing Discuss Exercise with your physician Driving after Discharge:No driving for 2 weeks Showering Bathing:May Shower,No tub bathing, soaking or swimming,_ Breast Care: Wear supportive bras as much as possible If nipple soreness occurs, rub colostrum (breastmilk) or a pea-sized amount of lanolin on nipples after feeding Practice self-breast exam monthly , Notify Provider of: Redness, swelling, or drainage from incision Foul smelling vaginal discharge Temperature over 100.4 degrees Fahrenheit Signs of depression or anxiety that makes it hard for you to care for yourself or your baby Weight up more than 2 pounds a day or more than 5 pounds in a week Incision pulling apart Pass blood clots larger than a golf ball Sharp pain or redness in your legs Painful urination or feeling like you have to go to the bathroom all the time Have breast pain with fever and chills Excessive vomiting or diarrhea Vaginal bleeding greater than 1 pad per hour Pain is worsening and current pain medication is not adequate When to go to the Emergency Room or call 911: Shortness of breath or chest pain Unable to reach provider Wound/Incision Care After Discharge: Keep operative site/wound site clean and dry Follow-Up Appointments Follow Up with JENNIFER ROWE DO When 11/29/2019 08:45 AM EDT Where: [address] [place] [address]- Medications What How Much When Instructions Next Dose docusate (Colace 100 mg oral capsule) 1 Capsule(s) Oral Three Times A Day 11/19/2019 at 3pm glycerin-witch armand topical (Tucks 50% topical pad) 1 Each Topical See Comment as needed for Perineal Comfort Measure hydrocortisone-pramoxine topical (hydrocortisone-pramoxine 1%-1% rectal cream) 1 Application(s) Rectal Every 4 Hours as needed for Perineal Comfort Measure lanolin topical (lanolin topical ointment) Topical See Comment as needed for Other (See Comment) levothyroxine (Synthroid) 50 Microgram(s) Oral Every Day multivitamin 1 Tablet(s) Oral Every Day stacy vitamins and iron 11/20/2019 at 9am Non Formulary (Non Formulary med) Tremfya 100 mg subcutaneous every 2-3 mos Percocet 1 tab, oral, every 6 hours as needed for pain. Next dose due 11/19/2019 Ibuprofen 800mg, 1 tab, oral, every 8 hours as needed for pain. Next dose due 11/19/2019 at 12pm Take your medications faithfully. Do NOT skip medication. Do NOT stop taking medications without the direction of a physician. Carry a list of your medications with you at all times, and take this medication list with you to your first follow up visit. Report any side effects. Avoid herbal remedies unless discussed with your physician. As part of your treatment plan, your physician may have prescribed a limited course of a controlled substance. This medication may be given to help people with moderate or severe pain or for other medical conditions, but there are risks involved with treatment. Common side effects may include nausea, constipation, drowsiness, sweating, itching, dry mouth, and rash. More serious side effects may include cognitive and motor impairment, like problems with thinking, concentrating, alertness, and movement (e.g. slowed reflexes), and driving and operating heavy machinery can be dangerous. It is important for you to talk to your physician if you have these side effects or questions. These controlled substances can produce physical dependence and be habit-forming if taken for an extended period of time, which means that the body has gotten used to them and may experience withdrawal symptoms if they are abruptly stopped. Withdrawal symptoms can include runny nose, sweating, goose bumps, diarrhea, abdominal cramping, rapid heartbeat, difficulty sleeping, and nervousness. Please dispose of unused and medications per your retail pharmacy guidance. Allergies Cefzil (rash) Immunizations This Visit No Immunizations Found Education Materials Delivery, Care After Refer to this sheet [...] and water are not available, use hand sharepoint engineer. ? If you have a dressing, change [...] until your incision heals. Medicines ??? Take sxfb-qcw-hqlxpmn and prescription medicines only as told by [...] 05/24/2003 Document Revised: 10/04/2017 Document Reviewed: 08/05/2016 [employer] Patient Education ?? 2018 [employer] Choosing to breastfeed is one of [...] milk are better able to meet your baby???s needs compared to formula. ??? Breast milk improves your baby's [...] well away from your nipple and your baby???s mouth. ??? Stroke your baby's lips gently [...] common for your baby to suck about 2???3 minutes in order to start the flow [...] or silent sucking, without causing you pain. 's lips should be extended outward (flanged). ??? Swallowing heard between every 3???4 sucks once your milk has started to [...] your finger into the corner of your baby???s mouth to break the suction and place [...] have increased in firmness, weight, and size 1???3 hours after feeding. ??? Breasts that are softer immediately after . ??? Increased milk volume, as well as a change in milk consistency and color by the fifth day of . ??? Nipples that are not sore, cracked, or bleeding. Signs that your baby is getting enough milk ??? Wetting at least 1???2 diapers during the first 24 hours after . ??? Wetting at least 5???6 diapers every 24 hours for the first week after . The urine should be clear or pale yellow by the age of 5 days. ??? Wetting 6???8 diapers every 24 hours as your baby [...] of life. ??? Average weight gain of 4???7 oz (113???198 g) per week after the age of [...] smacking lips, cooing, sighing, or squeaking. ??? Wqrp-jj-qtnkb movements and sucking on fingers or hands. ??? Fussing or crying. Avoid introducing a pacifier to your baby in the first 4-6 weeks after your baby is born. After this time, you may choose to use a pacifier. Research has shown that pacifier use during the first year of a baby's life decreases the risk of sudden syndrome (SIDS). Allow your baby to feed [...] of age or younger) may breastfeed every 1???3 hours. ??? Newborns should not go without [...] able to be present during feedings. Your research consultant can help you find a method [...] (sports bras). ??? Air-dry your nipples for 3???4 minutes after each feeding. ??? Use only [...] tender to the touch. Engorgement peaks within 3???5 days after you give . The following [...] Leave the ice on for 20 minutes, 2???3 times a day. ??? Make sure that your baby is latched on and positioned properly while . If engorgement persists after 48 hours of following these recommendations, contact your health care provider or a research consultant. Overall health care recommendations while ??? Eat 3 healthy meals and 3 snacks every day. Well-nourished mothers who are need an additional 450???500 calories a day. You can meet this [...] provider before taking any medicines. These include bnmb-wco-odxmkhm and prescription medicines as well as vitamins and herbal supplements. Some medicines that may be harmful to your baby can pass through breast milk. ??? It is possible to become while . If control is desired, ask your health care provider about options that will be safe while your baby. Where to find more information: [employer]: www.llli.org Contact a health care [...] Summary ??? offers many health benefits for and mothers. ??? Try to breastfeed your infant when he or she shows early signs [...] Talk with your health care provider or research consultant if you have questions or you face problems as you breastfeed. This information is not intended to replace advice given to you by your health care provider. Make sure you discuss any questions you have with your health care provider. Document Released: 09/01/2006 Document Revised: 10/03/2017 Document Reviewed: 10/03/2017 [employer] Interactive Patient Education ?? 2019 [employer]. acetaminophen and oxycodone (a SEET a MIN oh fen and OX i KOE done) Endocet 10/325, Endocet 2.5/325, Endocet 5/325, Endocet 7.5/325, Nalocet, Percocet 10/325, Percocet 2.5/325, Percocet 5/325, Percocet 7.5/325, Primalev, Primlev, Roxicet, Xartemis XR What is the most important information I should know about acetaminophen and oxycodone? MISUSE OF OPIOID MEDICINE CAN CAUSE ADDICTION, OVERDOSE, OR . Keep the medication in a place where others cannot get to it. An overdose of acetaminophen can damage your liver or cause . Call your doctor at once if you have pain in your upper stomach, loss of appetite, dark urine, or jaundice (yellowing of your skin or eyes). Taking opioid medicine during may cause life-threatening withdrawal symptoms in the . Fatal side effects can occur if you use opioid medicine with alcohol, or with other drugs that cause drowsiness or slow your breathing. Stop taking this medicine and call your doctor right away if you have skin redness or a rash that spreads and causes blistering and peeling. What is acetaminophen and oxycodone? Oxycodone is an opioid pain medication, sometimes called a narcotic. Acetaminophen is a less potent pain reliever that increases the effects of oxycodone. Acetaminophen and oxycodone is a combination medicine used to relieve moderate to severe pain. Acetaminophen and oxycodone may also be used for purposes not listed in this medication guide. What should I discuss with my healthcare provider before taking acetaminophen and oxycodone? You should not use this medicine if you are allergic to acetaminophen or oxycodone, or if you have: ?? severe asthma or breathing problems; or ?? a blockage in your stomach or intestines. Tell your doctor if you have ever had: ?? liver disease; ?? a drug or alcohol addiction; ?? kidney disease; ?? a head injury or seizures; ?? urination problems; or ?? problems with your thyroid, pancreas, or gallbladder. If you use opioid medicine while you are , your baby could become dependent on the drug. This can cause life-threatening withdrawal symptoms in the baby after it is born. Babies born dependent on opioids may need medical treatment for several weeks. Do not breast-feed. This medicine can pass into breast milk and cause drowsiness, breathing problems, or in a nursing baby. How should I take acetaminophen and oxycodone? Follow all directions on your prescription label. Never take this medicine in larger amounts, or for longer than prescribed. An overdose can damage your liver or cause . Tell your doctor if the medicine seems to stop working as well in relieving your pain. Never share this medicine with another person, especially someone with a history of drug abuse or addiction. MISUSE CAN CAUSE ADDICTION, OVERDOSE, OR . Keep the medicine in a place where others cannot get to it. Selling or giving away acetaminophen and oxycodone is against the law. Measure liquid medicine carefully. Use the dosing syringe provided, or use a medicine dose-measuring device (not a kitchen spoon). If you need surgery or medical tests, tell the doctor ahead of time that you are using this medicine. You should not stop using this medicine suddenly. Follow your doctor's instructions about tapering your dose. Store at room temperature away from moisture and heat. Keep track of your medicine. You should be aware if anyone is using it improperly or without a prescription. Do not keep leftover opioid medication. Just one dose can cause in someone using this medicine accidentally or improperly. Ask your pharmacist where to locate a drug take-back disposal program. If there is no take-back program, flush the unused medicine down the toilet. What happens if I miss a dose? Since this medicine is used for pain, you are not likely to miss a dose. Skip any missed dose if it is almost time for your next dose. Do not use two doses at one time. What happens if I overdose? Seek emergency medical attention or call the Poison Help line at . An overdose of acetaminophen and oxycodone can be fatal. The first signs of an acetaminophen overdose include loss of appetite, nausea, vomiting, stomach pain, sweating, and confusion or weakness. Later symptoms may include pain in your upper stomach, dark urine, and yellowing of your skin or the whites of your eyes. Overdose can also cause severe muscle weakness, pinpoint pupils, very slow breathing, extreme drowsiness, or coma. What should I avoid while taking acetaminophen and oxycodone? Avoid driving or operating machinery until you know how this medicine will affect you. Dizziness or drowsiness can cause falls, accidents, or severe injuries. Do not drink alcohol. Dangerous side effects or could occur. Ask a doctor or pharmacist before using any other medicine that may contain acetaminophen (sometimes abbreviated as APAP). Taking certain medications together can lead to a fatal overdose. What are the possible side effects of acetaminophen and oxycodone? Get emergency medical help if you have signs of an allergic reaction: hives; difficulty breathing; swelling of your face, lips, tongue, or throat. Opioid medicine can slow or stop your breathing, and may occur. A person caring for you should seek emergency medical attention if you have slow breathing with long pauses, blue colored lips, or if you are hard to wake up. In rare cases, acetaminophen may cause a severe skin reaction that can be fatal. This could occur even if you have taken acetaminophen in the past and had no reaction. Stop taking this medicine and call your doctor right away if you have skin redness or a rash that spreads and causes blistering and peeling. Call your doctor at once if you have: ?? noisy breathing, sighing, shallow breathing; ?? a light-headed feeling, like you might pass out; ?? weakness, tiredness, fever, unusual bruising or bleeding; ?? confusion, unusual thoughts or behavior; ?? problems with urination; ?? liver problems--nausea, upper stomach pain, tiredness, loss of appetite, dark urine, andrzej-colored stools, jaundice (yellowing of the skin or eyes); or ?? low cortisol levels-- nausea, vomiting, loss of appetite, dizziness, worsening tiredness or weakness. Seek medical attention right away if you have symptoms of serotonin syndrome, such as: agitation, hallucinations, fever, sweating, shivering, fast heart rate, muscle stiffness, twitching, loss of coordination, nausea, vomiting, or diarrhea. Serious side effects may be more likely in older adults and those who are overweight, malnourished, or debilitated. Long-term use of opioid medication may affect fertility (ability to have children) in men or women. It is not known whether opioid effects on fertility are permanent. Common side effects include: ?? dizziness, drowsiness, feeling tired; ?? feelings of extreme happiness or sadness; ?? nausea, vomiting, stomach pain; ?? constipation; or ?? headache. This is not a complete list of side effects and others may occur. Call your doctor for medical advice about side effects. You may report side effects to FDA at 9-899-MQJ-3480. What other drugs will affect acetaminophen and oxycodone? You may have breathing problems or withdrawal symptoms if you start or stop taking certain other medicines. Tell your doctor if you also use an antibiotic, antifungal medication, heart or blood pressure medication, seizure medication, or medicine to treat HIV or hepatitis C. Opioid medication can interact with many other drugs and cause dangerous side effects or . Be sure your doctor knows if you also use: ?? cold or allergy medicines, bronchodilator asthma/COPD medication, or a diuretic ('water pill'); ?? medicines for motion sickness, irritable bowel syndrome, or overactive bladder; ?? other narcotic medications--opioid pain medicine or prescription cough medicine; ?? a sedative like Valium--diazepam, alprazolam, lorazepam, Xanax, Klonopin, Versed, and others; ?? drugs that make you sleepy or slow your breathing--a sleeping pill, muscle relaxer, medicine to treat mood disorders or mental illness; ?? drugs that affect serotonin levels in your body--a stimulant, or medicine for depression, Parkinson's disease, migraine headaches, serious infections, or nausea and vomiting. This list is not complete. Other drugs may affect acetaminophen and oxycodone, including prescription and pxki-gxj-txntqab medicines, vitamins, and herbal products. Not all possible interactions are listed here. Where can I get more information? Your doctor or pharmacist can provide more information about acetaminophen and oxycodone. Remember, keep this and all other medicines out of the reach of children, never share your medicines with others, and use this medication only for the indication prescribed. Every effort has been made to ensure that the information provided by [employer]. ('[employer]') is accurate, up-to-date, and complete, but no guarantee is made to that effect. Drug information contained herein may be time sensitive. [employer] information has been compiled for use by healthcare practitioners and consumers in the [place] and therefore [employer] does not warrant that uses outside of the [place] are appropriate, unless specifically indicated otherwise. [employer] drug information does not endorse drugs, diagnose patients or recommend therapy. [employer] drug information is an informational resource designed to assist licensed healthcare practitioners in caring for their patients and/or to serve consumers viewing this service as a supplement to, and not a substitute for, the expertise, skill, knowledge and judgment of healthcare practitioners. The absence of a warning for a given drug or drug combination in no way should be construed to indicate that the drug or drug combination is safe, effective or appropriate for any given patient. [employer] does not assume any responsibility for any aspect of healthcare administered with the aid of information [employer] provides. The information contained herein is not intended to cover all possible uses, directions, precautions, warnings, drug interactions, allergic reactions, or adverse effects. If you have questions about the drugs you are taking, check with your doctor, nurse or pharmacist. Copyright 9927-1568 [employer]. Version: 18.02. Revision Date: 08/12/2018. ibuprofen (EYE bue PROE fen) Advil, Genpril, IBU, Midol IB, Motrin IB, Proprinal, Smart Sense Children's Ibuprofen What is the most important information I should know about ibuprofen? Ibuprofen can increase your risk of fatal heart attack or stroke, especially if you use it usp or take high doses, or if you have heart disease. Do not use this medicine just before or after heart bypass surgery (coronary artery bypass graft, or CABG). Ibuprofen may also cause stomach or intestinal bleeding, which can be fatal. These conditions can occur without warning while you are using ibuprofen, especially in older adults. What is ibuprofen? Ibuprofen is a nonsteroidal anti-inflammatory drug (NSAID). Ibuprofen works by reducing hormones that cause inflammation and pain in the body. Ibuprofen is used to reduce fever and treat pain or inflammation caused by many conditions such as headache, toothache, back pain, arthritis, menstrual cramps, or minor injury. This medicine is used in adults and children who are at least 6 months old. Ibuprofen may also be used for purposes not listed in this medication guide. What should I discuss with my healthcare provider before taking ibuprofen? Ibuprofen can increase your risk of fatal heart attack or stroke, especially if you use it usp or take high doses, or if you have heart disease. Even people without heart disease or risk factors could have a stroke or heart attack while taking this medicine. Do not use this medicine just before or after heart bypass surgery (coronary artery bypass graft, or CABG). Ibuprofen may also cause stomach or intestinal bleeding, which can be fatal. These conditions can occur without warning while you are using ibuprofen, especially in older adults. You should not use ibuprofen if you are allergic to it, or if you have ever had an asthma attack or severe allergic reaction after taking aspirin or an NSAID. Ask a doctor or pharmacist if it is safe for you to take this medicine if you have: ?? heart disease, high blood pressure, high cholesterol, diabetes, or if you smoke; ?? a history of heart attack, stroke, or blood clot; ?? a history of stomach ulcers or bleeding; ?? asthma; ?? liver or kidney disease; ?? fluid retention; or ?? a connective tissue disease such as Marfan syndrome, Sjogren's syndrome, or lupus. Taking ibuprofen during the last 3 months of may harm the unborn baby. Do not use this medicine without a doctor's advice if you are . It is not known whether ibuprofen passes into breast milk or if it could affect a nursing baby. Ask a doctor before using this medicine if you are . Do not give ibuprofen to a child younger than 2 years old without the advice of a doctor. How should I take ibuprofen? Use exactly as directed on the label, or as prescribed by your doctor. Do not use in larger amounts or for longer than recommended. Use the lowest dose that is effective in treating your condition. Do not take more than your recommended dose. An ibuprofen overdose can damage your stomach or intestines. The maximum amount of ibuprofen for adults is 800 milligrams per dose or 3200 mg per day (4 maximum doses). Use only the smallest amount of ibuprofen needed to get relief from your pain, swelling, or fever. A child's dose of ibuprofen is based on the age and weight of the child. Carefully follow the dosing instructions provided with children's ibuprofen for the age and weight of your child. Ask a doctor or pharmacist if you have questions. Take ibuprofen with food or milk to lessen stomach upset. Shake the oral suspension (liquid) well just before you measure a dose. Measure liquid medicine with the dosing syringe provided, or with a special dose-measuring spoon or medicine cup. If you do not have a dose-measuring device, ask your pharmacist for one. The ibuprofen chewable tablet must be chewed before you swallow it. If you use this medicine long-term, you may need frequent medical tests. Store at room temperature away from moisture and heat. Do not allow the liquid medicine to freeze. Read all patient information, medication guides, and instruction sheets provided to you. Ask your doctor or pharmacist if you have any questions. What happens if I miss a dose? Since ibuprofen is used when needed, you may not be on a dosing schedule. If you are on a schedule, use the missed dose as soon as you remember. Skip the missed dose if it is almost time for your next scheduled dose. Do not use extra medicine to make up the missed dose. What happens if I overdose? Seek emergency medical attention or call the Poison Help line at . Overdose symptoms may include nausea, vomiting, stomach pain, drowsiness, black or bloody stools, coughing up blood, shallow breathing, fainting, or coma. What should I avoid while taking ibuprofen? Avoid drinking alcohol. It may increase your risk of stomach bleeding. Avoid taking aspirin unless your doctor tells you to. Avoid taking ibuprofen if you are taking aspirin to prevent stroke or heart attack. Ibuprofen can make aspirin less effective in protecting your heart and blood vessels. If you must use both medications, take the ibuprofen at least 8 hours before or 30 minutes after you take the aspirin (non-enteric coated form). Ask a doctor or pharmacist before using any cold, allergy, or pain medicine. Many medicines available over the counter contain aspirin or other medicines similar to ibuprofen. Taking certain products together can cause you to get too much of this type of medication. Check the label to see if a medicine contains aspirin, ibuprofen, ketoprofen, or naproxen. What are the possible side effects of ibuprofen? Get emergency medical help if you have signs of an allergic reaction: sneezing, runny or stuffy nose; wheezing or trouble breathing; hives; swelling of your face, lips, tongue, or throat. Get emergency medical help if you have signs of a heart attack or stroke: chest pain spreading to your jaw or shoulder, sudden numbness or weakness on one side of the body, slurred speech, leg swelling, feeling short of breath. Stop using ibuprofen and call your doctor at once if you have: ?? changes in your vision; ?? shortness of breath (even with mild exertion); ?? swelling or rapid weight gain; ?? the first sign of any skin rash, no matter how mild; ?? signs of stomach bleeding--bloody or tarry stools, coughing up blood or vomit that looks like coffee grounds; ?? liver problems--nausea, upper stomach pain, itching, tired feeling, flu-like symptoms, loss of appetite, dark urine, andrzej-colored stools, jaundice (yellowing of the skin or eyes); ?? kidney problems--little or no urinating, painful or difficult urination, swelling in your feet or ankles, feeling tired or short of breath; ?? low red blood cells (anemia)--pale skin, feeling light-headed or short of breath, rapid heart rate, trouble concentrating; or ?? severe skin reaction--fever, sore throat, swelling in your face or tongue, burning in your eyes, skin pain followed by a red or purple skin rash that spreads (especially in the face or upper body) and causes blistering and peeling. Common side effects may include: ?? nausea, vomiting, gas; ?? bleeding; or ?? dizziness, headache. This is not a complete list of side effects and others may occur. Call your doctor for medical advice about side effects. You may report side effects to FDA at 4-067-AQS-6972. What other drugs will affect ibuprofen? Ask your doctor before using ibuprofen if you take an antidepressant such as citalopram, escitalopram, fluoxetine (Prozac), fluvoxamine, paroxetine, sertraline (Zoloft), trazodone, or vilazodone. Taking any of these medicines with an NSAID may cause you to bruise or bleed easily. Ask a doctor or pharmacist if it is safe for you to use ibuprofen if you are also using any of the following drugs: ?? cyclosporine; ?? pemetrexed; ?? lithium; ?? methotrexate; ?? a blood thinner (warfarin, Coumadin, Jantoven); ?? heart or blood pressure medication, including a diuretic or 'water pill'; or ?? steroid medicine (such as prednisone). This list is not complete. Other drugs may interact with ibuprofen, including prescription and syvm-nko-jbsyefv medicines, vitamins, and herbal products. Not all possible interactions are listed in this medication guide. Where can I get more information? Your pharmacist can provide more information about ibuprofen. Remember, keep this and all other medicines out of the reach of children, never share your medicines with others, and use this medication only for the indication prescribed. Every effort has been made to ensure that the information provided by [employer]. ('[employer]') is accurate, up-to-date, and complete, but no guarantee is made to that effect. Drug information contained herein may be time sensitive. [employer] information has been compiled for use by healthcare practitioners and consumers in the [place] and therefore [employer] does not warrant that uses outside of the [place] are appropriate, unless specifically indicated otherwise. [employer] drug information does not endorse drugs, diagnose patients or recommend therapy. [employer] drug information is an informational resource designed to assist licensed healthcare practitioners in caring for their patients and/or to serve consumers viewing this service as a supplement to, and not a substitute for, the expertise, skill, knowledge and judgment of healthcare practitioners. The absence of a warning for a given drug or drug combination in no way should be construed to indicate that the drug or drug combination is safe, effective or appropriate for any given patient. [employer] does not assume any responsibility for any aspect of healthcare administered with the aid of information [employer] provides. The information contained herein is not intended to cover all possible uses, directions, precautions, warnings, drug interactions, allergic reactions, or adverse effects. If you have questions about the drugs you are taking, check with your doctor, nurse or pharmacist. Copyright 5096-7376 [employer]. Version: 21.. Revision Date: 09/27/2019. Emergency Awareness and Preventative Care STROKE is an EMERGENCY Every Minute Counts Act FAST and Check for these signs: FACE Does the face look uneven? ARM Does one arm drift down? SPEECH Does their speech sound strange? TIME Call 9-1-1 at any sign of stroke Stroke Risk Factors Atrial Fibrillation (irregular heartbeat) Diabetes Family history of stroke Heart Disease Heavy alcohol use High Blood Pressure High Cholesterol Physical inactivity and obesity Smoking Cigarette Smoking The facts are clear, cigarette smoking will shorten your life. Smoking can cause many illnesses along the way. As a healthcare provider, we recommend that you stop smoking. Assistance with quitting is available by contacting 1-065-DINZNOW. This is a free resource providing counseling, support, and referral. Or you may contact your personal physician. [place] Suicide Prevention Lifeline: The National Suicide Prevention Lifeline is a national network of local crisis centers that provides free and confidential emotional support to people in suicidal crisis or emotional distress 24 hours a day, 7 days a week. Don't Wait! Stop a Heart Attack Before it Starts What is a heart attack? A heart attack is damage or to a part of the heart from severely decreased or lack of blood flow to the heart. Over time, arteries can become narrow from the buildup of fat and cholesterol, which is called plaque. The plaque can rupture causing a blood clot to form. When the blood clot forms, the artery can become severely narrowed or completely blocked, causing a heart attack. Heart attack is the leading cause of in the [place]. 85% of muscle damage occurs within the first 2 hours. Delay in the recognition of heart attack symptoms increases the chances of . Know the early symptoms of a heart attack: Nausea Feeling of fullness in chest Jaw Pain Pain that travels down one or both arms Fatigue/being tired Anxiety Back Pain Chest pressure, squeezing, or discomfort Shortness of breath Sweating, or a cold sweat Feeling of impending doom There are unusual signs of a heart attack, too! Women, the elderly, and diabetics may present with atypical symptoms: Fainting/dizziness Weakness Confusion Risk Factors for a Heart Attack Some heart disease risk factors, such as age and family history, cannot be changed. Others, like smoking and lack of exercise, can be changed. Smoking High Cholesterol High Blood Pressure Family History Obesity Age Gender (Males are at higher risk) Lack of Exercise Diabetes Diet Stress Excessive Alcohol Intake If you or someone you know is experiencing the signs and symptoms of a heart attack, DON???T DELAY. Call immediately and seek help. If someone collapses, perform CPR! Do not attempt to drive if you are having symptoms of heart attack. Hands-Only CPR Why Hands-Only CPR? Hands-Only CPR has been shown to be as effective as conventional CPR for cardiac arrests that occur outside of a hospital. Survival depends on immediately receiving CPR from someone nearby. How do you perform Hands-Only CPR? There are two easy steps: Call 9-1-1 if you see a teen or adult collapse Push hard and fast in the center of the chest at a beat of 100 beats per minute. Save a life! 4 WAYS TO GET AHEAD OF SEPSIS SEPSIS is a MEDICAL EMERGENCY. Time matters! Infections put you and your family at risk for a life-threatening condition called sepsis. Sepsis is the body's extreme response to an infection. It is life-threatening, and without timely treatment, sepsis can rapidly lead to tissue damage, organ failure, and . Sepsis happens when an infection you already have-in your skin, lungs, urinary tract or somewhere else-triggers a chain reaction throughout your body. 1 PREVENT INFECTIONS Take good care of chronic conditions. Talk to your doctor about getting the recommended vaccines. 2 PRACTICE GOOD HYGIENE Wash your hands frequently. Keep cuts or open sores clean and covered until they are healed. 3 KNOW THE SYMPTOMS Confusion or disorientation Shortness of breath High heart rate Fever, shivering, or feeling very cold Extreme pain or discomfort Clammy or sweaty skin 4 ACT FAST Get medical care IMMEDIATELY if you suspect sepsis or if you have an infection that is not getting better or is getting worse. To learn more about sepsis and how to prevent infections, visit www.cdc.gov/sepsis. Test Results Laboratory or Other Results This Visit (last charted value for your 11/16/2019 visit) Hematology 11/17/2019 5:35 AM WBC: 11.7 K/uL -- Normal range between ( 3.9 and 10.0 ) RBC: 3.29 Million/uL -- Normal range between ( 3.93 and 5.22 ) Hct: 29.9 % -- Normal range between ( 34.1 and 44.9 ) Hgb: 9.9 Gram/dL -- Normal range between ( 11.2 and 15.7 ) Platelet Count: 190 K/uL -- Normal range between ( 163 and 369 ) MCH: 30.1 pg -- Normal range between ( 25.6 and 32.2 ) MCHC: 33.1 Gram/dL -- Normal range between ( 32.3 and 36.5 ) MCV: 90.9 fL -- Normal range between ( 79.0 and 94.8 ) Slide Review: No RDW: 12.9 % -- Normal range between ( 11.6 and 14.4 ) MPV: 11.4 fL -- Normal range between ( 9.4 and 12.4 ) 11/16/2019 2:05 AM Eos %: 0.3 % -- Normal range between ( 1.0 and 7.0 ) [place] #: 1.11 K/uL -- Normal range between ( 0.24 and 0.82 ) Eos #: 0.05 K/uL -- Normal range between ( 0.04 and 0.54 ) [place] %: 7.1 % -- Normal range between ( 4.7 and 12.5 ) Baso %: 0.2 % -- Normal range between ( 0.0 and 1.0 ) Baso #: 0.03 K/uL -- Normal range between ( 0.01 and 0.08 ) Neut %: 78.5 % -- Normal range between ( 34.0 and 71.0 ) Neut #: 12.35 K/uL -- Normal range between ( 1.56 and 6.13 ) Lymph %: 13.5 % -- Normal range between ( 19.3 and 53.0 ) Lymph #: 2.13 K/uL -- Normal range between ( 1.18 and 3.74 ) IG#: 0 x10(3)/uL IG%: 0 % -- Normal range between ( 0 and 1 ) Blood Bank 11/16/2019 10:00 AM RhIg Product Ready: Not Indicated # of Vials: 0 11/16/2019 4:40 AM ABO/Rh Repeat: A NEG 11/16/2019 2:05 AM ABO/Rh: A NEG Antibody ID: Anti-D Antibody Screen (Tube): Positive Wk D Interp: Negative Toxicology 11/16/2019 2:05 AM UDS Amp: Negative UDS Karen: Negative UDS Benzo: Negative UDS Angela: Negative UDS Meth: Negative UDS Opi: Negative UDS Oxy: Negative UDS PCP: Negative UDS TCA: Negative UDS THC: Negative Buprenorphine Screen, Urine: Negative Heroin Metab (6AM) by LC-MS/MS, Urine: Negative SpGravity, Urine: 1.022 Propoxyphene, Urine: Negative UDS pH: 7.0 UDS Creatinine, Toxicology: 145.7 mg/dL Patient Name:LOVELY HARGROVE I have received and understand this information and was given the opportunity to ask questions. Patient/Vegetable Trimmer Name: Patient/Vegetable Trimmer Signature: Relationship to Patient: Clinician/Hospital Vegetable Trimmer Signature: Date: documented in this encounter Plan of Treatment Upcoming Encounters Date Type Department Care Team (Late st Contact Info) Description 07/26/2025 7:30 AM EST Appointment [facility] [address] [place] [address] documented as of this encounter Visit Diagnoses Not on filedocumented in this encounter Care Teams Suction Worker Relationship Specialty Start Date End Date Jennifer Rowe DO [address] [place] [address] PCP - General Obstetrics and Gynecology 10/11/24 Carolann Marion, TOMI, CNM [address] [address] Grain Operator Certified Nurse Grain Operator 10/11/24 documented as of this encounter
--- OUTSIDE RECORDS SUMMARY | 2025-07-22 10:00 | XMS_ITS | Encounter Summary ---
Author Organization [employer] ([place], [place], [place], [place], [place]) Address [address] [place] [address] Care Team Providers Care Silk Screen Operator Name Role Phone Jennifer Rowe DO Primary Care Provider [phone] Carolann Marion APRN, CN Unavailable [phone] Encounter Details Date Type Department Care Team (Late st Contact Info) Description 11/19/2019 Transcribed Document [facility] [place] [facility] [place] [address] ProviderMiguel MD [address] [place] [address] [id number] Social History Tobacco Use Types Packs/Day Years Used Date Smoking Tobacco: Never Assessed Comments Unknown Sex and Gender Information Value Date Recorded Sex Assigned at Not on file Legal Sex Female 5:46 PM CDT Gender Identity Not on file Sexual Orientation Not on file documented as of this encounter Miscellaneous Notes * Cerner Conversion Note - Miguel ProviderMD - 11/19/2019 11:37 AM PUMP TENDER Nursing Discharge Summary Entered On: 11/19/2019 11:40 EST Performed On: 11/19/2019 11:37 EST by JANICE EASTON RN Discharge Documentation Discharge Date/Time : 11/19/2019 11:37 EST Patient Disposition, General : Discharge Discharge To : Home with ambulatory/outpatient follow-up Mode Of Departure, General Discharge : Private vehicle, Wheelchair Accompanied By, Discharge : Significant other IV Discontinued : Yes Medications Given to Patient : No Personal Belongings With Patient : Yes Pt's Own Supply of Medications Returned : No Prescriptions Given to Patient : Yes Discharge Instructions Reviewed With, Opportunity For Questions Given : Patient Patient Education Completed : Yes Number of Prescriptions Given : 1 Teaching Method : Printed materials Teaching Evaluation : Verbalizes understanding Education Comment : PP booklet. Worker's Compensation Paperwork Completed : JANICE Shannon, RN - 11/19/2019 11:37 EST Electronically signed by [facility], [facility] Conversion Battery Tester Cerner at 12/29/2022 8:36 PM CDT documented in this encounter Plan of Treatment Upcoming Encounters Date Type Department Care Team (Late st Contact Info) Description 07/26/2025 7:30 AM EST Appointment [facility] [address] [place] [address] documented as of this encounter Visit Diagnoses Not on filedocumented in this encounter Care Teams Silk Screen Operator Relationship Specialty Start Date End Date Jennifer Rowe DO [address] [place] [address] PCP - General Obstetrics and Gynecology 10/11/24 Carolann Marion, TOMI, CNM [address] [place] [address] Door Maker Certified Nurse Door Maker 10/11/24 documented as of this encounter
--- OUTSIDE RECORDS SUMMARY | 2025-07-22 10:00 | XMS_ITS | Encounter Summary ---
Author Organization [employer] ([place], [place], [place], [place], [place]) Address [address] [place] [address] Care Team Providers Care Produce Laborer Name Role Phone Jennifer Rowe DO Primary Care Provider [phone] Carolann Marion APRN, CN Unavailable [phone] Encounter Details Date Type Department Care Team (Late st Contact Info) Description 11/16/2019 Transcribed Document [facility] [place] [address] ProviderMiguel MD [address] [place], [place] [id number] Social History Tobacco Use Types Packs/Day Years Used Date Smoking Tobacco: Never Assessed Comments Unknown Sex and Gender Information Value Date Recorded Sex Assigned at Not on file Legal Sex Female 5:46 PM CDT Gender Identity Not on file Sexual Orientation Not on file documented as of this encounter Miscellaneous Notes * Cerner Conversion Note - Miguel ProviderMD - 11/16/2019 10:51 AM SALESPERSON HOSIERY UM Authorization Entered On: 11/16/2019 10:51 EST Performed On: 11/16/2019 10:51 EST by ROGERS CROSS RN-Utilization Review Primary Insurance Authorization Authorization and Policy Numbers : Insurance 1 [facility] Number: [id number] Authorization Number: Insurance Primary Name : [facility] Policy Number: [id number] Authorization Status-Primary : No precert required Authorization Number-Primary : auto 2/4 Number of Days Authorized-Primary : 3 Day(s) Authorized Service Begin Date-Primary : 11/16/2019 EST Authorized Service End Date-Primary : 11/19/2019 EST Historical Authorization Comments-Primary : No Authorization Comments Found ROGERS CROSS RN-Utilization Review - 11/16/2019 10:51 EST Electronically signed by [facility] Conversion Child Care Associate Cerner at 12/29/2022 8:31 PM CDT documented in this encounter Plan of Treatment Upcoming Encounters Date Type Department Care Team (Late st Contact Info) Description 07/26/2025 7:30 AM EST Appointment [facility] [address] [place] [address] documented as of this encounter Visit Diagnoses Not on filedocumented in this encounter Care Teams Produce Laborer Relationship Specialty Start Date End Date Jennifer Rowe DO [address] [place] [address] PCP - General Obstetrics and Gynecology 10/11/24 Carolann Marion, VICE PRESIDENT COMPLIANCE, CNM [address] [place] [address] Technical Artist Certified Nurse Technical Artist 10/11/24 documented as of this encounter
--- OUTSIDE RECORDS SUMMARY | 2025-07-22 10:00 | XMS_ITS | Encounter Summary ---
Author Organization [employer] ([place], [place], [place], [place], [place]) Address [address] [place] [address] Care Team Providers Care Fleet Manager Name Role Phone RoweJennifer devi DO Primary Care Provider [phone] Carolann Marion APRN, CN Unavailable [phone] Encounter Details Date Type Department Care Team (Late st Contact Info) Description 10/21/2018 Transcribed Document [facility] [place] [facility] [place] [address] Miguel Juarez MD [address] [place] [phone] Social History Tobacco Use Types Packs/Day Years Used Date Smoking Tobacco: Never Assessed Comments Unknown Sex and Gender Information Value Date Recorded Sex Assigned at Not on file Legal Sex Female 5:46 PM CDT Gender Identity Not on file Sexual Orientation Not on file documented as of this encounter Miscellaneous Notes * Cerner Conversion Note - Miguel Juarez MD - 10/21/2018 8:18 AM SCIENCE WRITER DATE OF PROCEDURE: 10/01/2018 SURGEON: Eliu Norman MD PREOPERATIVE DIAGNOSIS(ES): Pain. POSTOPERATIVE DIAGNOSIS(ES): Pain. PROCEDURE: Upper endoscopy with biopsy. FINDINGS: Inflammation only. OPERATION PROCEDURE DESCRIPTION: After obtaining informed consent, the patient was taken to the endoscopy suite. IV sedation was administered and bite block was placed into position. The patient's oropharynx was cannulated under direct vision. Scope was advanced distally through the oropharynx into the esophagus. Esophagus was normal, as was the GE junction. Upon entering the gastric pouch, it was of normal small size. There was no evidence of any ulcer. No stenosis. The scope was easily passed into the small intestine. Gastric biopsies were obtained. Spontaneous hemostasis was documented. The scope was withdrawn. The patient was taken to the recovery area. Eliu Norman M.D. Dict: 10/21/2018 08:18:32 Trans: 10/21/2018 10:28:35 CC1: Eliu Norman M.D. Electronically signed by Damir, [facility] Conversion Helminthology Teacher Cerner at 12/29/2022 8:40 PM CDT documented in this encounter Plan of Treatment Upcoming Encounters Date Type Department Care Team (Late st Contact Info) Description 07/26/2025 7:30 AM EST Appointment [facility] [address] [facility] [address] [place] [address] documented as of this encounter Visit Diagnoses Not on filedocumented in this encounter Care Teams Fleet Manager Relationship Specialty Start Date End Date Jennifer Rowe DO [address] [place] [address] PCP - General Obstetrics and Gynecology 10/11/24 Carolann Marion, TOMI, CHRISTOPHER [address] [place] [address] Mink Rancher Certified Nurse Mink Rancher 10/11/24 documented as of this encounter
--- OUTSIDE RECORDS SUMMARY | 2025-07-22 10:00 | XMS_ITS | Encounter Summary ---
Author Organization [employer] ([place], [place], [place], [place], [place]) Address [address] [place] [address] Care Team Providers Care Tank Operator Name Role Phone Jennifer Rowe DO Primary Care Provider [phone] Carolann Marion APRN, CN Unavailable [phone] Encounter Details Date Type Department Care Team (Late st Contact Info) Description 11/17/2019 Transcribed Document [facility] Family Medicine [facility] [place] [address] ProviderMiguel MD [address] [place] [address] Social History Tobacco Use Types Packs/Day Years Used Date Smoking Tobacco: Never Assessed Comments Unknown Sex and Gender Information Value Date Recorded Sex Assigned at Not on file Legal Sex Female 5:46 PM CDT Gender Identity Not on file Sexual Orientation Not on file documented as of this encounter Miscellaneous Notes * Cerner Conversion Note - Miguel ProviderMD - 11/17/2019 6:00 PM ENVIRONMENTAL SPECIALIST Pain Assessment Entered On: 11/17/2019 19:40 EST Performed On: 11/17/2019 18:20 EST by CHAIM ELIAS RN Intervention Information: ibuprofen Performed by GUSTAVO BEGUM RN on 11/17/2019 17:20:00 EST ibuprofen,600mg Oral Pain Assessment Pain Assessment : Follow-up assessment Pain Improved by Intervention : Yes CHAIM ELIAS RN - 11/17/2019 19:40 EST Electronically signed by Damir [facility] Conversion Welding Specialist Cerner at 12/29/2022 8:21 PM CDT documented in this encounter Plan of Treatment Upcoming Encounters Date Type Department Care Team (Late st Contact Info) Description 07/26/2025 7:30 AM EST Appointment [facility] [address] [facility] [address] [place] [address] documented as of this encounter Visit Diagnoses Not on filedocumented in this encounter Care Teams Tank Operator Relationship Specialty Start Date End Date Jennifer Rowe DO [address] [place] [address] PCP - General Obstetrics and Gynecology 10/11/24 Carolann Marion, TOMI, CNM [address] [place] [address] Tattoo Technician Certified Nurse Tattoo Technician 10/11/24 documented as of this encounter
--- OUTSIDE RECORDS SUMMARY | 2025-07-22 10:00 | XMS_ITS | Encounter Summary ---
Author Organization [employer] ([place], [place], [place], [place], [place]) Address [address] [place] [address] Care Team Providers Care Manager Android Name Role Phone Jennifer Rowe DO Primary Care Provider Carolann Marion APRN, GERTRUDEM Unavailable [phone] Encounter Details Date Type Department Care Team (Latest Contact Info) Description 07/08/2025 Travel Social History Tobacco Use Types Packs/Day Years [...] Do you speak a language other than [place] at [facility]? No 03/09/2024 Do you want help with [...] on file documented as of this encounter Plan of Treatment Upcoming Encounters Date Type Department Care Team (Late st Contact Info) Description 07/26/2025 7:30 AM EST Appointment [facility] [address] [facility] [address] [place] [address] documented as of this encounter Visit Diagnoses Not on filedocumented in this encounter Care Teams Manager Android Relationship Specialty Start Date End Date Jennifer Rowe DO [address] [place] [address] PCP - General Obstetrics and Gynecology 10/11/24 Carolann Marion, LUNCHROOM WORKER, CNM [address] [place] [address] Police Detention Attendant Certified Nurse Police Detention Attendant 10/11/24 documented as of this encounter
--- OUTSIDE RECORDS SUMMARY | 2025-07-22 10:00 | XMS_ITS | Encounter Summary ---
Author Organization [employer] ([place], [place], [place], [place], [place]) Address [address] [place] [address] Care Team Providers Care Interior Design Principal Name Role Phone Jennifer Rowe DO Primary Care Provider [phone] Carolann Marion APRN, CN Unavailable [phone] Encounter Details Date Type Department Care Team (Late st Contact Info) Description 11/16/2019 Transcribed Document [facility] Family Medicine [facility] [place] [address] ProviderMiguel MD [address] [place] [id number] Social History Tobacco Use Types Packs/Day Years Used Date Smoking Tobacco: Never Assessed Comments Unknown Sex and Gender Information Value Date Recorded Sex Assigned at Not on file Legal Sex Female 5:46 PM CDT Gender Identity Not on file Sexual Orientation Not on file documented as of this encounter Miscellaneous Notes * Cerner Conversion Note - Miguel ProviderMD - 11/16/2019 9:27 AM CAMP ADVISOR Patient: LOVELY HARGROVE Age: 29 Years Sex: Female : 1990 Admit Date 11/16/2019 01:11 PREOPERATIVE DIAGNOSIS(ES): 29 yo G1 at 38 1/7, breech, labor, history of gastric bypass, hypothyroid POSTOPERATIVE DIAGNOSIS(ES): Same PROCEDURE: Section SURGEON: Dr. Jennifer Rowe Assist: DEBBIE Stern ANESTHESIA: Spinal COMPLICATIONS: None apparent. ESTIMATED BLOOD LOSS: 600cc INTRAVENOUS FLUIDS: 2 L crystalloid. URINE OUTPUT: 300 clear at the completion of the procedure. SPECIMENS: Placenta, disposed INDICATIONS: Labor, Breech Findings: Female infant footling breech, apgars: 8, 9 and weight of 2764 grams; unremarkable placenta and post op anatomy. DESCRIPTION OF PROCEDURE: The patient was taken to the operating room suite where anesthesia was found to be adequate. She was prepped and draped in the dorsal supine position. After verifying adequate anesthesia, Pfannenstiel skin incision was made and carried down to the underlying layer of the fascia, which was incised midline. Fascial incisions were extended superiorly and laterally. Bluntly, peritoneum was identified and entered. Peritoneal incisions were extended with good bladder visualization. Bladder blade was inserted and the lower uterine segment was incised in a transverse fashion and hysterotomy was extended superiorly and laterally. The infant was delivered in breech presentation atraumatically with the usual manuvers. Upon delivery, cord was clamped twice and cut. was bulb suctioned and handed to the awaiting NICU/ team. Cord blood was obtained and sent to the lab for analysis. The placenta was delivered and noted to be intact with a three-vessel cord and was disposed off. Uterus was exteriorized and hysterotomy was closed in the usual running, locked fashion with #1-0 chromic. Excellent hemostasis was then noted post closure. Pelvis was copiously irrigated and gutters were cleared of clot. Surgicel was added for additional hemostatic purpose. Peritoneum was reapproximated with #2-0 chromic. Fascia was closed with #0 Vicryl. Subcu was closed with #3-0 Vicryl. Skin was closed with #3-0 Monocryl. Steri-Strips and dressing were applied post procedure. The patient did go to Recovery in stable condition. The infant went to the nursery in stable condition. Antibiotics were given on-call to the operating room suite. Counts were correct x 3 post procedure. documented in this encounter Plan of Treatment Upcoming Encounters Date Type Department Care Team (Late st Contact Info) Description 07/26/2025 7:30 AM [facility] Appointment [address] documented as of this encounter Visit Diagnoses Not on filedocumented in this encounter Care Teams Interior Design Principal Relationship Specialty Start Date End Date Jennifer Rowe DO [address] [place] [address] PCP - General Obstetrics and Gynecology 10/11/24 Carolann Marion, PRINTING MACHINIST, CNM [address] [place] [address] Buildings And Grounds Director Certified Nurse Buildings And Grounds Director 10/11/24 documented as of this encounter
--- OUTSIDE RECORDS SUMMARY | 2025-07-22 10:00 | XMS_ITS | Encounter Summary ---
Author Organization [employer] ([place], [place], [place], [place], [place]) Address [address] [place] [address] Care Team Providers Care Supervising Chef Name Role Phone Rowe, Amy Primary Care Provider [phone] Carolann Marion APRN, CN Unavailable [phone] Encounter Details Date Type Department Care Team (Late st Contact Info) Description 11/17/2019 Transcribed Document [facility] Family Medicine [facility] [place] [address] ProviderMiguel MD [address] [place] [id number] Social History Tobacco Use Types Packs/Day Years Used Date Smoking Tobacco: Never Assessed Comments Unknown Sex and Gender Information Value Date Recorded Sex Assigned at Not on file Legal Sex Female 5:46 PM CDT Gender Identity Not on file Sexual Orientation Not on file documented as of this encounter Miscellaneous Notes * Cerner Conversion Note - Miguel ProviderMD - 11/17/2019 9:45 AM EAR MOLD LABORATORY TECHNICIAN Patient: LOVELY HARGROVE Age: 29 Years Sex: Female : 1990 Chief Complaint: PO PP Day #1, s/p emergent c/s for breech presentation. Subjective Pt has no c/o today, denies s/s PPH or PPD, pt states she is ambulating and voiding without difficulty. Pt states she is breast feeding and baby is doing well. Pt states her pain is well controlled. Review of Systems VSS, Afebrile H&H 9.9/29.9 Objective General: Pt is AA&Ox4, in NAD, wd/wn, responds appropriately Breast: soft, non tender Cardiovascular: RRR without gallop or rub Lungs: CTA, b/l A&P Abdomen: soft, mildy tender over incision Ext: MAEW, no peripheral edema Incision/Episiotomy/Lac: Assessment/Plan PO PP DAy 1, will continue current POC 38 weeks gestation [...] choice: Breast 6. Vaccinations: 7. Return appointment: [address] Rowe 8. depression follow-up plan: at d/c and PPV 9. Two hour OGTT scheduled for 6 week visit: Yes(_)/No(_) Data (X) NICU (_) Medications Inpatient aluminum hydroxide/magnesium hydroxide/simethicone 200 mg-200 mg-20 mg/5 mL oral suspension, 30 mL, Oral, Q4H, PRN Ambien, 5 mg= 1 Tab, Oral, At Bedtime, PRN Colace, 100 mg= 1 Cap, Oral, TID Cytotec, 1000 mcg= 5 Tab, Rectal, 1-Time, PRN Dermoplast 20% topical spray, 1 Hoffman, Topical, Q4H, PRN Dextrose 5% in Lactated Ringers intravenous solution 1,000 mL, 1000 mL, IntraVENous Dulcolax Laxative, 10 mg= 1 Supp, Rectal, BID, PRN Hemabate, 250 mcg= 1 mL, IntraMuscular, 1-Time, PRN hydrocortisone-pramoxine 1%-1% rectal cream, 1 Application, Rectal, Q4H, PRN ibuprofen, 600 mg= 1 Tab, Oral, Q6H ibuprofen, 400 mg= 1 Tab, Oral, Q6H, PRN lanolin topical ointment, 1 Application, Topical, See Comment, PRN measles/mumps/rubella virus vaccine, 0.5 mL, SubCutaneous, 1-Time, PRN Methergine, 0.2 mg= 1 mL, IntraMuscular, 1-Time, PRN Mylicon, 80 mg= 1 Tab, Chew, TID nalbuphine, 5 mg= 0.5 mL, IV Push, 1-Time, PRN naloxone, 0.2 mg= 0.5 mL, IV Push, See Comment, PRN Normal Saline Flush, 10 mL, IV Push, Q8H Normal Saline Flush, 10 mL, IV Push, See Comment, PRN Pepcid, 20 mg= 1 Tab, Oral, Q12H, PRN Percocet 5/325 oral tablet, 1 Tab, Oral, Q4H, PRN Percocet 5/325 oral tablet, 2 Tab, Oral, Q4H, PRN Phenergan, 12.5 mg= 0.5 mL, IV Push, Q6H, PRN Multivitamins oral tablet, 1 Tab, Oral, Daily RHo (D) immune globulin, 1500 Units= 2 mL, IntraMuscular, 1-Time, PRN Stadol, 1 mg= 1 mL, IV Push, Q2H, PRN tetanus/diphth/pertuss (Tdap) adult/adol, 0.5 mL, IntraMuscular, 1-Time, PRN Tucks 50% topical pad, 1 Each, Topical, See Comment, PRN Tylenol, 1000 mg= 2 Tab, Oral, Q6H, PRN Zofran, 4 mg= 2 mL, IV Push, Q4H, PRN Zofran, 4 mg= 2 mL, IV [...] H 11.7 190 / L 29.9 \ Electronically signed by Damir, [facility] Conversion Tabulating Supervisor Cerner at 12/29/2022 8:18 PM CDT documented in this encounter Plan of Treatment Upcoming Encounters Date Type Department Care Team (Late st Contact Info) Description 07/26/2025 7:30 AM EST Appointment [facility] [address] [facility] [address] [place] [address] documented as of this encounter Visit Diagnoses Not on filedocumented in this encounter Care Teams Supervising Chef Relationship Specialty Start Date End Date Jennifer Rowe DO [address] [place] [address] PCP - General Obstetrics and Gynecology 10/11/24 Carolann Marion, LITIGATION ASSISTANT, CNM [address] [place] [address] Shellfish Harvester Certified Nurse Shellfish Harvester 10/11/24 documented as of this encounter
--- OUTSIDE RECORDS SUMMARY | 2025-07-22 10:00 | XMS_ITS | Encounter Summary ---
Author Organization [employer] ([place], [place], [place], [place], [place]) Address [address] [place] [address] Care Team Providers Care Dry Transfer Man Name Role Phone Jennifer Rowe DO Primary Care Provider [phone] Carolann Marion APRN, CN Unavailable [phone] Encounter Details Date Type Department Care Team (Late st Contact Info) Description 11/19/2019 Transcribed Document [facility] [place] [facility] [place] [address] ProviderMiguel MD [address] [place] [address] [id number] Social History Tobacco Use Types Packs/Day Years Used Date Smoking Tobacco: Never Assessed Comments Unknown Sex and Gender Information Value Date Recorded Sex Assigned at Not on file Legal Sex Female 5:46 PM CDT Gender Identity Not on file Sexual Orientation Not on file documented as of this encounter Miscellaneous Notes * Cerner Conversion Note - Miguel ProviderMD - 11/19/2019 10:01 AM WASTE SPECIALIST Final Discharge Planning Entered On: 11/19/2019 10:01 EST Performed On: 11/19/2019 10:01 EST by MERLYN CURRY TAPE DUPLICATOR-AIR BRAKE MAN Final Discharge Planning Discharge Arrangements : Patient Post-Acute Information Patient Name: LOVELY HARGROVE Gender: Female : [birth year] Age: 29 Years No Post-Acute Placement(s) Listed No Post-Acute Service(s) Listed No [place] Referral(s) Listed Discharge To Care Management : Home/Residential/Snf or Self Care - MERLYN CURRY TAPE DUPLICATOR-AIR BRAKE MAN - 11/19/2019 10:01 EST documented in this encounter Plan of Treatment Upcoming Encounters Date Type Department Care Team (Late st Contact Info) Description 07/26/2025 7:30 AM EST Appointment [facility] [address] [facility] [address] [place] [address] documented as of this encounter Visit Diagnoses Not on filedocumented in this encounter Care Teams Dry Transfer Man Relationship Specialty Start Date End Date Jennifer Rowe DO [address] [place] [address] PCP - General Obstetrics and Gynecology 10/11/24 Carolann Marion, ACCREDITATION COORDINATOR, CNM [address] [place] [address] Hha Certified Nurse Hha 10/11/24 documented as of this encounter
--- OUTSIDE RECORDS SUMMARY | 2025-07-22 10:00 | XMS_ITS | Encounter Summary ---
Author Organization [employer] ([place], [place], [place], [place], [place]) Address [address] [place] [address] Care Team Providers Care Bus Info Consultant Name Role Phone Rowe, Amy Primary Care Provider [phone] Carolann Marion APRN, CN Unavailable [phone] Encounter Details Date Type Department Care Team (Late st Contact Info) Description 11/18/2019 Transcribed Document [facility] [place] [facility] [place] [address] ProviderMiguel MD [address] [place] [address] [phone] Social History Tobacco Use Types Packs/Day Years Used Date Smoking Tobacco: Never Assessed Comments Unknown Sex and Gender Information Value Date Recorded Sex Assigned at Not on file Legal Sex Female 5:46 PM CDT Gender Identity Not on file Sexual Orientation Not on file documented as of this encounter Miscellaneous Notes * Cerner Conversion Note - Miguel ProviderMD - 11/18/2019 4:00 PM CRA OFFICER Spiritual Care Short Form Entered On: 11/18/2019 17:46 EST Performed On: 11/18/2019 16:00 EST by YUN TAYLOR Chaplain-Non Cert General Information, Spiritual Care Spiritual Care Referred by : Developer Programmer initiated Reason for Visit : Initial Ministry Provided to : Patient, Family/Significant other Intervention/Comment/Summary Points : Visited patient in room, a family member was present with her. Patient shared about her unexpected and expressed gratitude that her daughter was born safely. Patient is a first-time mother and said it doesn't quite feel real yet. She is happy about her baby and looking forward to taking her home in a few days. No needs. Spiritual/Emotional Acuity : No Concern Spiritual Framework : Unknown Hoahaoism Preference : Congregation ([employer]) YUN TAYLOR, Developer Programmer-Non Cert - 11/18/2019 17:44 EST Electronically signed by [facility] Conversion Motion Picture Critic Cerner at 12/29/2022 8:29 PM CDT documented in this encounter Plan of Treatment Upcoming Encounters Date Type Department Care Team (Late st Contact Info) Description 07/26/2025 7:30 AM EST Appointment [facility] [address] [place] [address] documented as of this encounter Visit Diagnoses Not on filedocumented in this encounter Care Teams Bus Info Consultant Relationship Specialty Start Date End Date Jennifer Rowe DO [address] [place] [address] PCP - General Obstetrics and Gynecology 10/11/24 Carolann Marion, TOMI, CNM [address] [place] [address] Glassie Certified Nurse Glassie 10/11/24 documented as of this encounter
--- OUTSIDE RECORDS SUMMARY | 2025-07-22 10:01 | XMS_ITS | Encounter Summary ---
Author Organization [employer] ([place], [place], [place], [place], [place]) Address [address] [place] [address] Care Team Providers Care Cone Operator Name Role Phone Jennifer Rowe DO Primary Care Provider [phone] Carolann Marion APRN, CN Unavailable [phone] Encounter Details Date Type Department Care Team (Late st Contact Info) Description 10/01/2018 Transcribed Document [facility] [facility] [place] [address] ProviderMiguel MD [address] [place] [address] [phone] Social History Tobacco Use Types Packs/Day Years Used Date Smoking Tobacco: Never Assessed Comments Unknown Sex and Gender Information Value Date Recorded Sex Assigned at Not on file Legal Sex Female 5:46 PM CDT Gender Identity Not on file Sexual Orientation Not on file documented as of this encounter Miscellaneous Notes * Cerner Conversion Note - Miguel ProviderMD - 10/01/2018 9:00 AM UNIX ADMINISTRATOR [facility] PreOp Summary Primary Physician: GRAHAM TORRES MD Finalized Date/Time: 10/01/18 09:48:20 Pt. Name: LOVELY HARGROVE.O.B./Sex: 1990 Female Med Rec #: [id number] Physician: GRAHAM TRORES MD Financial #: [id number] Pt. Type: O Room/Bed: [facility] Admit/Disch: 10/01/18 09:18:00 - Institution: [facility] PreOp Case Times Entry 1 In Preop 10/01/18 09:25:00 Ready for Holding n/a Room Patient Ready for 10/01/18 09:48:00 Surgery Patient Out of Preop 10/01/18 09:48:00 Patient Out of n/a Holding Room [facility] PreOp Case Times Audit 10/01/18 09:48:17 Stock Lifter: NISHANT Modifier: NISHANT <+> 1 Patient Out of Preop <+> 1 Patient Ready for Surgery Finalized By: GUSTAVO MCNEILL, RN Document Signatures Signed By: GUSTAVO MCNEILL RN 10/01/18 09:48 documented in this encounter Plan of Treatment Upcoming Encounters Date Type Department Care Team (Late st Contact Info) Description 07/26/2025 7:30 AM EST Appointment [address] [place] [address] documented as of this encounter Visit Diagnoses Not on filedocumented in this encounter Care Teams Cone Operator Relationship Specialty Start Date End Date Jennifer Rowe DO [address] [place] [address] PCP - General Obstetrics and Gynecology 10/11/24 Carolann Marion, MARKETING AND COMMUNICATIONS OFFICER, CNM [address] [place] [address] Cattle Inspector Certified Nurse Cattle Inspector 10/11/24 documented as of this encounter
--- OUTSIDE RECORDS SUMMARY | 2025-07-22 10:01 | XMS_ITS | Encounter Summary ---
Author Organization [employer] ([place], [place], [place], [place], [place]) Address [address] [place] [address] Care Team Providers Care Vascular Surgeon Name Role Phone Jennifer Rowe DO Primary Care Provider [phone] Carolann Marion APRN, CN Unavailable [phone] Encounter Details Date Type Department Care Team (Late st Contact Info) Description 10/01/2018 Transcribed Document [facility] [place] [facility] [place] [address] ProviderMiguel MD [address] [place] [address] [id number] Social History Tobacco Use Types Packs/Day Years Used Date Smoking Tobacco: Never Assessed Comments Unknown Sex and Gender Information Value Date Recorded Sex Assigned at Not on file Legal Sex Female 5:46 PM CDT Gender Identity Not on file Sexual Orientation Not on file documented as of this encounter Miscellaneous Notes * Cerner Conversion Note - Miguel ProviderMD - 10/01/2018 9:54 AM GROCERY BAGGER [facility] IntraOp Summary Primary Physician: GRAHAM TORRES MD Finalized Date/Time: 10/01/18 10:16:03 Pt. Name: LOVELY HARGROVE.O.B./Sex: 1990 Female Med Rec #: [id number] Physician: GRAHAM TORRES MD Financial #: [id number] Pt. Type: O Room/Bed: [facility]/10 Admit/Disch: 10/01/18 09:18:00 - Institution: [facility] Endo - Case Attendance Entry 1 Entry 2 Entry 3 Case Attendee GRAHAM TORRES MD REARDON, SHERRI L, REESE KAY Role Performed Surgeon/Proceduralist, Paramedical Aide, First Scrub, First First Time In 10/01/18 09:52:00 10/01/18 09:52:00 10/01/18 09:52:00 Time Out 10/01/18 09:58:00 10/01/18 09:58:00 10/01/18 09:58:00 Procedure Esophagogastroduodenosco Esophagogastroduodenosco Esophagogastroduodenosco py, Gastric Biopsy py, Gastric Biopsy py, Gastric Biopsy Other Attendee Superficial Wound Closed By: Last Modified By: JING SHELLEY RN REARDON, SHERRI L, RN REARDON, SHERRI L, RN 10/01/18 10:07:47 10/01/18 10:07:47 10/01/18 10:07:47 Entry 4 Case Attendee TUSHAR HUNTLEY CRNA Role Performed SEA AIR LAND OFFICER/Nurse Doubling Machine Operator Time In 10/01/18 09:52:00 Time Out 10/01/18 09:58:00 Procedure Esophagogastroduodenosco py, Gastric Biopsy Other Attendee Superficial Wound Closed By: Smith Modified By: JING SHELLEY RN 10/01/18 10:07:47 [facility] Endo - Case Attendance Audit 10/01/18 10:07:47 Career Consultant: QUINTEN Modifier: QUINTEN 1 <+> Time Out 1 <*> Procedure Esophagogastroduodenoscopy, Gastric Biopsy 2 <+> Time Out 2 <*> Procedure Esophagogastroduodenoscopy, Gastric Biopsy 3 <+> Time Out 3 <*> Procedure Esophagogastroduodenoscopy, Gastric Biopsy 4 <+> Time Out 4 <*> Procedure Esophagogastroduodenoscopy, Gastric Biopsy 10/01/18 10:00:15 Career Consultant: QUINTEN Modifier: DAREKSH 1 <*> Procedure Esophagogastroduodenoscopy 2 <*> Procedure Esophagogastroduodenoscopy 3 <*> Procedure Esophagogastroduodenoscopy 4 <*> Procedure Esophagogastroduodenoscopy 10/01/18 09:58:56 Career Consultant: MILLERSH Modifier: MILLERSH <+> 1 Procedure 2 <*> Procedure Esophagogastroduodenoscopy 3 <*> Procedure Esophagogastroduodenoscopy 4 <+> Time In 4 <*> Procedure Esophagogastroduodenoscopy [facility] - Case Times Entry 1 Patient In Room Time 10/01/18 09:52:00 Out Room Time 10/01/18 09:58:00 Anesthesia Start Time 10/01/18 09:52:00 Stop Time 10/01/18 09:56:00 Anesthesia Ready 10/01/18 09:52:00 Surgery / Procedure Times Start Time 10/01/18 09:54:00 Stop Time 10/01/18 09:56:00 Last Modified By: JING SHELLEY RN 10/01/18 10:07:25 [facility] - Case Times Audit 10/01/18 10:07:25 Career Consultant: QUINTEN Modifier: MILLERSH <+> 1 Start Time 10/01/18 10:07:04 Career Consultant: DAREKSH Modifier: MILLERSH <+> 1 Out Room Time <+> 1 Stop Time <+> 1 Stop Time [facility] - Cultures and Spec Summary Entry 1 Cultrures and Specimens Specimen Ordered: Yes Specimens Types Pathology Specimen(s) Labeled Pathology and Sent to Last Modified By: JING SHELLEY RN 10/01/18 10:02:33 [facility] - Delays Entry 1 Delay Reason Other Duration 0 Minute(s) Comment NO DELAY Last Modified By: JING SHELLEY RN 10/01/18 10:04:39 [facility] - Departure from OR Entry 1 Integumentary Assessment Integumentary WDL Assessment WDL Transfer/Handoff Transfer to PACU Phase I Post-op Transport Stretcher/Gurney Via Patient Transport JING SHELLEY RN, Accompanied by TUSHAR HUNTLEY CRNA Last Modified By: JING SHELLEY RN 10/01/18 10:06:35 [facility] - Endoscopy Details Entry 1 Abdomen Procedure Soft, Non-Tender Assessment Procedure Abdomen 10/01/18 09:15:00 Assessment D/T Radio Frequency Ablation Last Modified By: JING SHELLEY RN 10/01/18 10:05:05 [facility] - Fire Risk Assessment Entry 1 Fire Info Surgical Site or 1- Yes Incision Above the Xyphoid Open O2 Source 1- Yes (Mask or Cannula) Available Ignition 1- Yes (ESU, Laser, Light Source) Fire Risk 3 Assessment Score Fire Score Fire Risk Yes Assessment Complete Fire Risk JING SHELLEY RN Assessment Verified By Fire Risk 10/01/18 09:50:00 Assessment Verified Date/Time Fire Risk High Risk Protocol Yes Implemented Standard Fire Yes Safety Precautions Followed Last Modified By: JING SHELLEY RN 10/01/18 10:00:38 [facility] - General Case Vehicle Technician 1 Case Information OR Endo 01 [facility] Case Level 1 Room Verified Yes Wound Class II - Clean-Contaminated Specialty SN General Anesthesia Type MAC ASA Class 2 Diagnosis Preop Diagnosis abd pain Postop Same As Preop No Postop Diagnosis abd pain Last Modified By: JING SHELLEY RN 10/01/18 10:05:35 [facility] - Intraoperative Assessment Entry 1 Handoff Report GUSTAVO MCNEILL RN Received from Handoff Reported to Shreya Ohara RN Handoff Method Bedside/Face to face Valid History / Yes Physical in Chart Preoperative Yes Checklist Reviewed/Evaluated Patient is Latex No Sensitive Level of WDL Consciousness (WDL = Alert, Oriented to Person, Place, and Time) Present Upon ECG monitored Arrival to OR Last Modified By: JING SHELLEY RN 10/01/18 10:06:24 [facility] - Intraoperative Equipment Entry 1 Equipment Intraop Monitoring Electrocardiogram Three lead placement (ECG) Electrode Placement Blood Pressure Arm, left upper Location Pulse Oximeter Hand, right Probe Site Antiembolic Devices Scopes Flexible Endoscopes Gastroscope Used Scope Serial 2430 Number/Identificatio n Number Photo/Video Documentation Photo Yes Video No Last Modified By: JING SHELLEY RN 10/01/18 10:04:32 [facility] Endo - Patient Positioning Entry 1 Procedure Esophagogastroduodenosco py, Gastric Biopsy Body Position Lateral, right side up Left Arm Position Resting at side Right Arm Position Resting at side Left Leg Position Other Right Leg Position Other Position Comments Right leg over left leg uncrossed Feet Uncrossed Yes Pressure Points Yes Checked Positioning Devices Other Positioned By JING SHELLEY RN Position Verified Positioning Yes Verified by Surgeon Last Modified By: JING SHELLEY RN 10/01/18 10:02:54 [facility] Endo - Sign In Entry 1 Patient, Site, Yes Procedure Identified Surgical Consent Yes Confirmed Surgical Site N/A Marked by person performing procedure Airway Hypothermia Risk No Warming Measures Yes Taken Last Modified By: JING SHELLEY RN 10/01/18 10:02:19 [facility] - Sign Out Entry 1 RN Confirmation Surgical Yes Procedure(s) Identified Instrument, Sponge N/A and Sharps Counts Correct/Documented Equipment Problems N/A Documented Specimen Labeled N/A Correctly Surgery Estimated 0 mL Blood Loss Urinary Catheter N/A Documented in [facility] 0 mL Urine Output Safety Checklist Yes Elements Complete? RN Sign Out JING SHELLEY RN Signature RN Sign Out 10/01/18 09:58:00 Signature Date/Time Plan of Care Outcome - Fire Risk OUTCOME STATEMENT: Goal met Patient is free from injury related to surgical fire Plan of Care Outcome - Pt Positioning OUTCOME STATEMENT: Goal met Absence of signs and symptoms of positioning injury. Plan of Care Outcome - Skin Prep OUTCOME STATEMENT: Goal met Intraoperative care is consistent with measures to prevent infection Plan of Care Outcome - Xray/Images OUTCOME STATEMENT: N/A Absence of observable signs or symptoms of radiation injury Plan of Care Outcome - Counts OUTCOME STATEMENT: N/A Absence of signs and symptoms of injury related to extraneous objects Last Modified By: JING SHELLEY RN 10/01/18 10:02:00 [facility] Endo - Surgical Procedures Entry 1 Entry 2 Procedure Esophagogastroduodenosco Gastric Biopsy py Modifiers Additional Procedure Description Primary Procedure Yes No Primary Surgeon GRAHAM TORRES MD STEINER, JOSHUA, MD Start 10/01/18 09:54:00 10/01/18 09:54:00 Stop 10/01/18 09:56:00 10/01/18 09:56:00 Physician States Cecum Reached Anesthesia Type MAC MAC Specialty SN General SN General Wound Class II - Clean-Contaminated II - Clean-Contaminated Last Modified By: JING SHELLEY RN REARDON, SHERRI L, RN 10/01/18 10:00:10 10/01/18 10:00:10 [facility] Endo - Surgical Procedures Audit 10/01/18 10:00:10 Career Consultant: DAREK Modifier: MILLER 1 <*> Procedure Esophagogastroduodenoscopy 1 <+> Stop <+> 2 Procedure <+> 2 Primary Procedure <+> 2 Primary Surgeon <+> 2 Specialty <+> 2 Start <+> 2 Stop <+> 2 Wound Class <+> 2 Anesthesia Type [facility] - Time Out Entry 1 Procedure to be Esophagogastroduodenosco Performed py, Gastric Biopsy Time Out Time Out Pause Time 10/01/18 09:53:00 All activity Yes suspended (unless life threatening emergency) Team Verbally Correct patient Confirms Information identity, Correct side and site are marked, Consent form is present and accurate, Agreement on the procedure to be done, Correct patient position, Relevant images/results properly labeled/appropriately displayed Antibiotic N/A Prophylaxis Administered Or In Progress Within the Last 60 Minutes Beta Gio N/A Administered Venous N/A Thromboembolism Prophylaxis Required Anticipated Critical Events Surgeon None expected Last Modified By: JING SHELLEY RN 10/01/18 10:01:23 Case Comments <None> Finalized By: JING SHELLEY RN Document Signatures Signed By: JING SHELLEY RN 10/01/18 10:08 JING SHELLEY RN 10/01/18 10:16 Unfinalized History Date/Time Username Reason for Unfinalizing Freetext Reason for Unfinalizing 10/01/18 10:15 [facility] Modify Pick List documented in this encounter Plan of Treatment Upcoming Encounters Date Type Department Care Team (Late st Contact Info) Description 07/26/2025 7:30 AM EST Appointment [place] [address] [facility] [address] [place] [address] documented as of this encounter Visit Diagnoses Not on filedocumented in this encounter Care Teams Vascular Surgeon Relationship Specialty Start Date End Date Jennifer Rowe DO [address] [place] [address] PCP - General Obstetrics and Gynecology 10/11/24 Carolann Marion, DIRECTOR PATIENT, CNM [address] [place] [address] Case Investigator Certified Nurse Case Investigator 10/11/24 documented as of this encounter
--- OUTSIDE RECORDS SUMMARY | 2025-07-22 10:01 | XMS_ITS | Encounter Summary ---
Author Organization [employer] ([place], [place], [place], [place], [place]) Address [address] [place] [address] Care Team Providers Care Stem Processing Machine Operator Name Role Phone Jennifer Rowe DO Primary Care Provider [phone] Carolann Marion APRN, CN Unavailable [phone] Encounter Details Date Type Department Care Team (Late st Contact Info) Description 10/06/2018 Transcribed Document [facility] [place] [facility] [place] [address] ProviderMiguel MD [address] [place] [address] [phone] Social History Tobacco Use Types Packs/Day Years Used Date Smoking Tobacco: Never Assessed Comments Unknown Sex and Gender Information Value Date Recorded Sex Assigned at Not on file Legal Sex Female 5:46 PM CDT Gender Identity Not on file Sexual Orientation Not on file documented as of this encounter Miscellaneous Notes * Cerner Conversion Note - Miguel Juarez MD - 10/06/2018 10:35 AM TAIL TRIMMER [facility] Main OR PreOp Summary Primary Physician: GRAHAM TORRES MD Finalized Date/Time: 10/06/18 11:06:16 Pt. Name: LOVELY HARGROVE.O.B./Sex: 1990 Female Med Rec #: [id number] Physician: GRAHAM TORRES MD Financial #: [id number] Pt. Type: O Room/Bed: Admit/Disch: 10/06/18 08:31:00 - Institution: [facility] PreOp Case Times Entry 1 In Preop 10/06/18 08:40:00 Ready for Holding n/a Room Patient Ready for 10/06/18 09:43:00 Surgery Patient Out of Preop 10/06/18 11:05:00 Patient Out of n/a Holding Room Last Modified By: TRACE SANTILLAN 10/06/18 11:06:15 [facility] PreOp Case Times Audit 10/06/18 11:06:15 Hand Coke Drawer: ELDON Modifier: [email or web address] <+> 1 Patient Out of Preop Finalized By: TRACE SANTILLAN Document Signatures Signed By: TRACE SANTILLAN 10/06/18 11:06 documented in this encounter Plan of Treatment Upcoming Encounters Date Type Department Care Team (Late st Contact Info) Description 07/26/2025 7:30 AM EST Appointment [place] [address] [facility] [address] [place] [address] documented as of this encounter Visit Diagnoses Not on filedocumented in this encounter Care Teams Stem Processing Machine Operator Relationship Specialty Start Date End Date Jennifer Rowe DO [address] [place] [address] PCP - General Obstetrics and Gynecology 10/11/24 Carolann Marion, ELIGIBILITY AND OCCUPANCY INTERVIEWER, CNM [address] [place] [address] Supervisor Fish Bait Processing Certified Nurse Supervisor Fish Bait Processing 10/11/24 documented as of this encounter
--- OUTSIDE RECORDS SUMMARY | 2025-07-22 10:01 | XMS_ITS | Encounter Summary ---
Author Organization [employer] ([place], [place], [place], [place], [place]) Address [address] [place] [address] Care Team Providers Care Quality Control Industrial Engineer Name Role Phone Jennifer Rowe DO Primary Care Provider [phone] Carolann Marion APRN, CN Unavailable [phone] Encounter Details Date Type Department Care Team (Late st Contact Info) Description 10/01/2018 Transcribed Document [facility] [place] [facility] [place] [address] ProviderMiguel MD [address] [place] [address] [phone] Social History Tobacco Use Types Packs/Day Years Used Date Smoking Tobacco: Never Assessed Comments Unknown Sex and Gender Information Value Date Recorded Sex Assigned at Not on file Legal Sex Female 5:46 PM CDT Gender Identity Not on file Sexual Orientation Not on file documented as of this encounter Miscellaneous Notes * Cerner Conversion Note - Miguel ProviderMD - 10/01/2018 10:13 AM PLASTIC PRESS MOLDER Nursing Discharge Summary Entered On: 10/01/2018 10:15 EST Performed On: 10/01/2018 10:13 EST by Ghislaine Chen Rn Discharge Documentation Patient Disposition, General : Discharge Discharge To : Home without planned follow-up Mode Of Departure, General Discharge : Private vehicle Accompanied By, Discharge : Mother IV Discontinued : Yes Ghislaine Chen Rn - 10/01/2018 10:13 EST Electronically signed by Damir [facility] Conversion Technology Integration Specialist Cerner at 12/29/2022 8:29 PM CDT documented in this encounter Plan of Treatment Upcoming Encounters Date Type Department Care Team (Late st Contact Info) Description 07/26/2025 7:30 AM EST Appointment [facility] [address] [facility] [address] [place] [address] documented as of this encounter Visit Diagnoses Not on filedocumented in this encounter Care Teams Quality Control Industrial Engineer Relationship Specialty Start Date End Date Jennifer Rowe DO [address] [place] [address] PCP - General Obstetrics and Gynecology 10/11/24 Carolann Marion, FLOWER MACHINE OPERATOR, CNM [address] [place] [address] Juke Box Mechanic Certified Nurse Juke Box Mechanic 10/11/24 documented as of this encounter
--- OUTSIDE RECORDS SUMMARY | 2025-07-22 10:01 | XMS_ITS | Encounter Summary ---
Author Organization [employer] ([place], [place], [place], [place], [place]) Address [address] [place] [address] Care Team Providers Care Formulation Chemist Name Role Phone Rowe, Amy Primary Care Provider [phone] Carolann Marion APRN, CN Unavailable [phone] Encounter Details Date Type Department Care Team (Late st Contact Info) Description 10/01/2018 Transcribed Document [facility] [place] [address] [place] [address] ProviderMiguel MD [address] [place] [address] [phone] Social History Tobacco Use Types Packs/Day Years Used Date Smoking Tobacco: Never Assessed Comments Unknown Sex and Gender Information Value Date Recorded Sex Assigned at Not on file Legal Sex Female 5:46 PM CDT Gender Identity Not on file Sexual Orientation Not on file documented as of this encounter Miscellaneous Notes * Cerner Conversion Note - Miguel ProviderMD - 10/01/2018 10:12 AM SLITTER CREASER SLOTTER HELPER Discharge Instructions Entered On: 10/01/2018 10:13 EST Performed On: 10/01/2018 10:12 EST by Ghislaine Chen Rn DC Instructions HWD Stroke/TIA Discharge Ins : N/A Heart Failure Discharge Ins : N/A Warfarin Discharge Ins : N/A Diet After Discharge : Regular diet as tolerated Activity After Discharge : Rest and relax today, No strenuous activities, No heavy lifting over 10 pounds Driving After Discharge : Do not drive May Return To Work/School : return to normal activity tmw, see recomendations in discharge Showering/Bathing : May shower Ghislaine Chen Rn - 10/01/2018 10:12 EST documented in this encounter Plan of Treatment Upcoming Encounters Date Type Department Care Team (Late st Contact Info) Description 07/26/2025 7:30 AM EST Appointment [address] [place] [address] documented as of this encounter Visit Diagnoses Not on filedocumented in this encounter Care Teams Formulation Chemist Relationship Specialty Start Date End Date Jennifer Rowe DO [address] [place] [address] PCP - General Obstetrics and Gynecology 10/11/24 Carolann Marion, CLINICAL AUDIOLOGIST, CNM [address] [place] [address] Trash Truck Driver Certified Nurse Trash Truck Driver 10/11/24 documented as of this encounter
--- OUTSIDE RECORDS SUMMARY | 2025-07-22 10:01 | XMS_ITS | Encounter Summary ---
Author Organization [employer] ([place], [place], [place], [place], [place]) Address [address] [place] [address] Care Team Providers Care Phosphoric Acid Supervisor Name Role Phone Jennifer Rowe DO Primary Care Provider [phone] Carolann Marion APRN, CN Unavailable [phone] Encounter Details Date Type Department Care Team (Late st Contact Info) Description 10/06/2018 Transcribed Document [facility] [place] [facility] [place] [address] ProviderMiguel MD [address] [place] [address] Social History Tobacco Use Types Packs/Day Years Used Date Smoking Tobacco: Never Assessed Comments Unknown Sex and Gender Information Value Date Recorded Sex Assigned at Not on file Legal Sex Female 5:46 PM CDT Gender Identity Not on file Sexual Orientation Not on file documented as of this encounter Miscellaneous Notes * Cerner Conversion Note - Miguel ProviderMD - 10/06/2018 9:21 AM MOTION GRAPHICS DESIGNER Pediatric Growth Entered On: 10/06/2018 9:21 EST Performed On: 10/06/2018 9:21 EST by Dee Huff Patient Kiln Firer Height and Weight, Clinical Dosing Weight Source : Standing scale Weight Entry Format : [facility] Clinical Dosing Weight : 78.18 kg Weight, Pounds : 172 lb Dee Huff, Patient Kiln Firer - 10/06/2018 9:21 EST Electronically signed by Damir [facility] Conversion Bondactor Machine Operator [place] at 12/29/2022 8:34 PM CDT documented in this encounter Plan of Treatment Upcoming Encounters Date Type Department Care Team (Late st Contact Info) Description 07/26/2025 7:30 AM EST Appointment [facility] [address] [facility] [address] [place] [address] documented as of this encounter Visit Diagnoses Not on filedocumented in this encounter Care Teams Phosphoric Acid Supervisor Relationship Specialty Start Date End Date Jennifer Rowe DO [address] [place] [address] PCP - General Obstetrics and Gynecology 10/11/24 Carolann Marion, NITROCELLULOSE OPERATOR, CNM [address] [place] [address] Mailing Clerk Certified Nurse Mailing Clerk 10/11/24 documented as of this encounter
--- OUTSIDE RECORDS SUMMARY | 2025-07-22 10:01 | XMS_ITS | Encounter Summary ---
Author Organization [employer] ([place], [place], [place], [place], [place]) Address [address] [place] [address] Care Team Providers Care Certified Teacher Assistant Name Role Phone Jennifer Rowe DO Primary Care Provider [phone] Carolann Marion APRN, CN Unavailable [phone] Encounter Details Date Type Department Care Team (Late st Contact Info) Description 10/06/2018 Transcribed Document [facility] [place] [facility] [place] [address] ProviderMiguel MD [address] [place] [address] [id number] Social History Tobacco Use Types Packs/Day Years Used Date Smoking Tobacco: Never Assessed Comments Unknown Sex and Gender Information Value Date Recorded Sex Assigned at Not on file Legal Sex Female 5:46 PM CDT Gender Identity Not on file Sexual Orientation Not on file documented as of this encounter Miscellaneous Notes * Cerner Conversion Note - Miguel Juarez MD - 10/06/2018 11:23 AM BUSINESS PROCESS ENGINEER [facility] OR PostOp Summary Primary Physician: GRAHAM TORRES MD Finalized Date/Time: 10/06/18 15:37:26 Pt. Name: LOVELY HARGROVE.O.B./Sex: 1990 Female Med Rec #: [id number] Physician: GRAHAM TORRES MD Financial #: [id number] Pt. Type: O Room/Bed: Admit/Disch: 10/06/18 08:31:00 - Institution: [facility] OR PostOp Case Times Entry 1 In PACU II 10/06/18 13:08:00 Ready for PACU II 10/06/18 14:00:00 Discharge Discharge from PACU 10/06/18 14:56:00 II Last Modified By: Orin Garcia RN 10/06/18 15:37:20 Finalized By: Orin Garcia, RN Document Signatures Signed By: Orin Garcia RN 10/06/18 15:37 Electronically signed by Damir [facility] Conversion Cemetery Workers Supervisor Cerner at 12/29/2022 8:22 PM CDT documented in this encounter Plan of Treatment Upcoming Encounters Date Type Department Care Team (Late st Contact Info) Description 07/26/2025 7:30 AM EST Appointment [facility] [address] [facility] [address] [place] [address] documented as of this encounter Visit Diagnoses Not on filedocumented in this encounter Care Teams Certified Teacher Assistant Relationship Specialty Start Date End Date Jennifer Rowe DO [address] [place] [address] PCP - General Obstetrics and Gynecology 10/11/24 Carolann Marion, TOMI, CNM [address] [place] [address] Topper Press Operator Certified Nurse Topper Press Operator 10/11/24 documented as of this encounter
--- OUTSIDE RECORDS SUMMARY | 2025-07-22 10:01 | XMS_ITS | Clinical Summary ---
Author Organization [employer] ([place], [place], [place], [place], [place]) Address [address] [place] [address] Care Team Providers Care Harness Installer Name Role Phone Rowe, Amy Primary Care Provider [phone] Carolann Marion APRN, CNM Unavailable [phone] Allergies Active Allergy Reactions Criticality Noted Date Comments Cefprozil Hives,Rash High 10/09/2006 Medications ondansetron (ZOFRAN) 4 MG tablet Take 1 tablet (4 mg total) by mouth 2 (two) times daily as needed. 30 tablet 4 Active drospirenone-estetr ol (Nextstellis) 3 mg- 14.2 mg (28) tab Take 1 tablet by mouth daily. 84 tablet 3 5 Active ondansetron (ZOFRAN-ODT) 8 MG disintegrating tabletIndications:n ause and vomiting s/p gastric bypass surgery Take 1 tablet (8 mg total) by mouth every 8 (eight) hours as needed for nausea or vomiting. 30 tablet 2 5 Active Active Problems Problem Noted Date Diagnosed Date Well woman exam with routine gynecological exam 08/19/2024 Assessment & Plan (08/19/2024 6:20 PM EST): Well woman exam Last pap 05/20/2021 NILM and no HR HPV Cervical cancer screen with HR HPV - obtained today Results in mail and will call for abnormal results Repeat due to ASCCP standards Encounter for counseling regarding contraception 08/19/2024 Assessment & Plan (08/19/2024 6:26 PM EST): Missed bilateral salpingectomy consult with Dr Corona Will re consult Depo provera X 3 - irregular and prolonged bleeding Will switch to Nextstellis with 2 samples and order for one year Call if non resolution or worsening symptoms Consider pelvic ultrasound TA/TV Encounter for counseling regarding contraception 03/16/2024 Assessment & Plan (04/20/2024 8:41 PM EDT): Referred to Dr Corona for bilateral salpingectomy Missed appointment today and rescheduled Abstinence since of child. Depo Provera X 1 now (abstinence for two weeks) Assessment & Plan (03/16/2024 8:12 PM EDT): Referral for bilateral salpingectomy placed examination following delive ry 03/16/2024 Assessment & Plan (04/20/2024 8:43 PM EDT): Post 6 weeks Feels well and no further bleeding Incision well healed and no concerns regarding activity Last pap 05/19/2021 and repeat pap 05/20/2024 Make annual exam Assessment & Plan (03/16/2024 8:13 PM EDT): Post care Bottle feeding Elects bilateral salpingectomy Good pain relief FU 5 weeks History of delivery affecting 03/09/2024 Anemia affecting in third trimester Assessment & Plan (01/08/2024 3:15 PM EDT): On iron. Rubella non-immune status, antepartum 12/18/2023 Overview (12/18/2023): Plan to vaccinate post Assessment & Plan (02/11/2024 2:14 PM EDT): Plan to vaccinate post History of Sebas-en-Y gastric bypass 10/20/2023 Assessment & Plan (01/29/2024 4:49 PM EDT): Log for blood sugars (unable to have GTT due to gastric bypass) No record (logs) at office today but indicates FBS and 1 H GTT normal Assessment & Plan (01/08/2024 3:13 PM EDT): She did before breakfast and after breakfast BS for one week, but forgot the log. She will call with numbers, but reports they are normal. History of delivery, currently in third trimester 10/20/2023 Assessment & Plan (10/20/2023 2:28 PM EST): Cervical shortening with last and used progesterone thru . She had labor and delivery at 36. Uterine scar from previous delivery Assessment & Plan (02/25/2024 2:04 PM EDT): Repeat scheduled. Consent today. All questions asked and answered. Assessment & Plan (02/11/2024 2:15 PM EDT): Repeat at 39 weeks Labor precautions and kick count- aware of triage Assessment & Plan (01/29/2024 4:40 PM EDT): Plan repeat at 39 weeks or sooner or if clinically indicated Assessment & Plan (01/08/2024 3:14 PM EDT): Repeat planned. Assessment & Plan (12/17/2023 3:53 PM EDT): Previous uterine scar Assessment & Plan (10/20/2023 2:29 PM EST): She is considering TOLAC. History of uterine fibroid 09/03/2023 Family history of breast cancer in first degree relative 06/23/2023 Assessment & Plan (08/19/2024 6:21 PM EST): Family of first degree relative with breast cancer Completed genetic testing and recommendations Assessment & Plan (04/20/2024 8:46 PM EDT): See orders for imaging and continued care Delivered At high risk for breast cancer 06/23/2023 Assessment & Plan (08/19/2024 6:22 PM EST): Missed appointment with breast center for diagnostic mammogram and MRI Reschedule with [facility] breast center Assessment & Plan (04/20/2024 8:46 PM EDT): When imaging was scheduled , patient was Previous patient of [facility] but is willing to start care with The [facility] Center at [facility] E Will send orders Resolved Problems Problem Noted Date Diagnosed Date Resolved Date Encounter for ultrasound to assess growth 12/25/2023 04/20/2024 Third trimester 12/25/2023 Assessment & Plan (02/25/2024 2:04 PM EDT): Labor precautions reviewed. Nausea and vomiting in 10/01/2023 01/29/2024 First trimester 10/01/2023 Third trimester 10/01/2023 Assessment & Plan (01/29/2024 4:48 PM EDT): labor precautions Aware of triage - walk in or help line GBS at 36 weeks Assessment & Plan (01/08/2024 3:13 PM EDT): Tdap today. Assessment & Plan (12/17/2023 3:53 PM EDT): GCT ordered - indicated she cannot do 1 H GTT due to previous surgery (GI) Not willing try but perform blood glucose levels Return on next visit - agrees Encounters Date Type Department Care Team Description 07/08/2025 10:00 AM EDT - 07/08/2025 10:59 PM EDT Hospital Encounter [facility] [address] [place] [address] Jennifer Rowe, DO Abnormal mammogram Discharge Disposition: Home or Self Care 07/08/2025 Travel from Last 3 Months Immunizations Immunization Administration Dates Next Due MMR VACCINE (MMR II, PRIORIX) (IMM44) 03/11/2024 Rho (D) Immune Globulin 03/10/2024,12/17/2023 Tdap 03/10/2024(),01/08/2024 Family History Medical History Relation Name Comments Breast cancer Maternal Aunt Heart attack Maternal Grandfather Heart disease Maternal Grandfather Stroke Maternal Grandfather Breast cancer Maternal Grandmother Cancer Maternal Grandmother Ovarian cancer Maternal Grandmother Breast cancer Mother Cancer Mother Relation Name Status Comments Maternal Aunt Alive Maternal Grandfather Maternal Grandmother Mother Alive Social History Tobacco Use Types Packs/Day Years Used Date Smoking Tobacco: Never Smokeless Tobacco: Never Tobacco Cessation:Counseling Given: Not Answered Alcohol Use Standard Drinks/Week Comments Not Currently [...] money to buy more. Never true 10/01/19 Within the past 12 months, t he [...] Do you speak a language other than [place] at [facility]? No 03/09/2024 Do you want help with [...] file Not on file Not on file Last Filed Vital Signs Vital Sign Reading Time Taken Comments Blood Pressure 135/89 08/19/2024 1:42 PM EST Pulse 96 08/19/2024 1:42 PM EST Temperature 36.6 C (97.9 F) 03/11/2024 8:00 AM EDT Respiratory Rate 16 03/11/2024 8:00 AM EDT Oxygen Saturation 99% 03/09/2024 3:20 PM EDT Inhaled Oxygen Concentration - - Weight 70.3 kg (155 lb) 10/11/2024 10:09 AM EST Height 154.9 cm (5' 1 ) 03/09/2024 10:53 AM EDT Body Mass Index 29.29 03/09/2024 10:53 AM EDT Plan of Treatment Upcoming Encounters Date Type Department Care Team (Late st Contact Info) Description 07/26/2025 7:30 AM EST Appointment [address] [place] [phone] Health Maintenance Due Date Last Done Comments Depression Screening (12+) 2002 COVID-19 VACCINE (1 - 2023- season) 2025 Influenza Vaccine (#1) 2025 05/16/2018 Tobacco Cessation Counseling and Screening (12+) 06/11/2026 06/11/2025 Pap Smear 08/19/2027 08/19/2024, 10/0 05/2023, 05/20/2021, Additional history exists DTAP/TDAP/TD VACCINES (3 - Td or Tdap) 01/07/2034 01/08/2024, 09/20/2019 HIV Screening Completed 10/20/2023 Hepatitis C Screening Completed 10/20/2023 Pneumococcal Vaccine: 0-49 Years Aged Out No longer eligible based on patient's age to complete this topic Procedures Procedure Name Priority Date/Time Associated Diagnosis Comments US BREAST LEFT LIMITED Routine 07/08/2025 11:23 AM EDT Abnormal mammogram PAP SMEAR, THIN PREP (MCT BKR) AP Routine 08/19/2024 12:00 AM EST HEPATITIS C VIRUS ANTIBODY W REFLEX HCV VERIFICATION Routine 10/20/2023 2:48 PM EST Second trimester HIV-1 ANTIGEN WITH HIV-1/2 ANTIBODY Routine 10/20/2023 2:48 PM EST Second trimester from Last 3 Months or Most Recently Relevant to Health Maintenance Results * (ABNORMAL) US BREAST LEFT LIMITED [...] recommended imaging studies/procedures. us Shanti Buck MD [facility] US ORDERABLES Final Result * Pap Smear, Thin Prep (08/19/2024 12:00 AM EST) Vaginal/Cervical/ Endocervical OTHER / Unknown us Carolann Marion APRN, CNM PATHOLOGY/CYTOLOGY [facility]ATH[facility]INE SOUZA Final Result Performing Organization Address City/[facility] Co de Phone Number PATHOLOGY AND [facility]TOLOGY LABORATORY [address] [place] [address] * Hepatitis C Antibody w Reflex HCV Verifi (10/20/2023 2:48 PM EST) HCV Ab Non Reactive Non Reactive [facility] Blood 10/20/2023 2:48 PM EST 10/20/2023 Narrative [facility] - 10/21/2023 10:07 AM EST Performed at: - [facility] [id number] Inspector Subassemblies: Sami Coulter PhD, Phone: [phone] us Jennifer Rowe DO LAB BLOOD ORDERABLES Final Resul t Performing Organization Address [facility] de Phone Number [facility] * HIV-1 Antigen with HIV-1/2 Antibody (10/20/2023 2:48 PM EST) HIV Screen 4th Generation wRfx Non Reactive Non Reactive [facility] Comment: HIV Negative HIV-1/HIV-2 antibodies and HIV-1 p24 antigen were NOT detected. There is no laboratory evidence of HIV infection. Blood 10/20/2023 2:48 PM EST 10/20/2023 Narrative [facility] - 10/21/2023 10:07 AM EST Performed at: - [facility] [address] [id number] Inspector Subassemblies: Sami Coulter PhD, Phone: [phone] Jennifer Rowe DO LAB BLOOD ORDERABLES Final Resul t Performing Organization Address City/[facility] Co de Phone Number [facility] from Last 3 Months or Most Recently Relevant to Health Maintenance Insurance [employer] MEDICAID Advance Directives For more information, please contact: [phone] * Full Code (Latest Code Status on File) Date Activated Date Inactivated Comments 03/09/2024 1:31 PM 03/11/2024 2:42 PM * Full Code Date Activated Date Inactivated Comments 03/09/2024 9:24 AM 03/09/2024 1:31 PM Care Teams Harness Installer Relationship Specialty Start Date End Date Jennifer Rowe DO [address] [place] [address] PCP - General Obstetrics and Gynecology 10/11/24 Carolann Marion, PATCH WASHER, CNM [address] [place] [address] Pantry Worker Certified Nurse Pantry Worker 10/11/24
--- OUTSIDE RECORDS SUMMARY | 2025-07-22 10:01 | XMS_ITS | Encounter Summary ---
Author Organization [employer] ([place], [place], [place], [place], [place]) Address [address] [place] [address] Care Team Providers Care Children'S Lunchroom Supervisor Name Role Phone RoweJennifer devi DO Primary Care Provider [phone] Carolann Marion APRN, CN Unavailable [phone] Encounter Details Date Type Department Care Team (Late st Contact Info) Description 10/21/2018 Transcribed Document [facility] [place] [address] Miguel Juarez MD [address] [place] [id number] Social History Tobacco Use Types Packs/Day Years Used Date Smoking Tobacco: Never Assessed Comments Unknown Sex and Gender Information Value Date Recorded Sex Assigned at Not on file Legal Sex Female 5:46 PM CDT Gender Identity Not on file Sexual Orientation Not on file documented as of this encounter Miscellaneous Notes * Cerner Conversion Note - Miguel Juarez MD - 10/21/2018 8:33 AM DIRECTOR TRUST DATE OF PROCEDURE: 10/06/2018 SURGEON: Eliu Norman MD TRANSPORTATION BROKER: Shreya Garcia PA-C PREOPERATIVE DIAGNOSIS(ES): Symptomatic cholelithiasis. POSTOPERATIVE DIAGNOSIS(ES): Symptomatic cholelithiasis. PROCEDURE: 1. Laparoscopic cholecystectomy. 2. Laparoscopic repair of internal small bowel hernia. FINDINGS: Non-incarcerated small bowel hernia. OPERATION PROCEDURE DESCRIPTION: After obtaining informed consent, the patient was taken to the operating room, placed in supine position. General anesthesia was induced. The patient's abdomen was then prepped and draped in standard surgical fashion. A periumbilical incision was made. The Veress needle was inserted. The abdomen was insufflated with carbon dioxide gas. The protected trocar was then placed. The remaining trocars were placed under direct vision. The gallbladder was grasped and elevated over the dome of the liver. The cystic duct and artery were dissected into plane view. The duct was clipped proximally and distally and divided. The artery was clipped and divided in similar fashion. The gallbladder was dissected free from the underlying liver bed and removed from the abdominal cavity through the periumbilical trocar site. Attention was paid to the Sebas-en-Y gastric bypass. Patient was noted to have a hernia at the mesocolic site. There was no evidence of any incarcerated bowel. This hernia was reapproximated. There was no evidence of any bleeding. Patient tolerated everything very well. The rest of the Sebas-en-Y was normal. The supraumbilical trocar site was closed with interrupted Vicryl suture. All needle, instrument, and sponge counts were correct. Patient was awakened, extubated, and taken to recovery room in stable condition. Eliu Norman M.D. Dict: 10/21/2018 08:33:14 Trans: 10/21/2018 11:11:18 CC1: Eliu Norman M.D. documented in this encounter Plan of Treatment Upcoming Encounters Date Type Department Care Team (Late st Contact Info) Description 07/26/2025 7:30 AM EST Appointment [facility] [address] [facility] [address] [place] [address] documented as of this encounter Visit Diagnoses Not on filedocumented in this encounter Care Teams Children'S Lunchroom Supervisor Relationship Specialty Start Date End Date Jennifer Rowe DO [address] [place] [address] PCP - General Obstetrics and Gynecology 10/11/24 Carolann Marion, IT PROGRAMMER ANALYST, CNM [address] [place] [address] Commercial Roofing Estimator Certified Nurse Commercial Roofing Estimator 10/11/24 documented as of this encounter
--- OUTSIDE RECORDS SUMMARY | 2025-07-22 10:01 | XMS_ITS | Referral Summary ---
Author Organization [employer] ([place], [place], [place], [place], [place]) Address [address] [place] [address] Care Team Providers Care Central Lab Technician Name Role Phone Jennifer Rowe DO Primary Care Provider Carolann Marion APRN, CN Unavailable [phone] Encounters Date Type Department Care Team Description 07/08/2025 Travel 07/08/2025 10:00 AM EDT - 07/08/2025 10:59 PM EDT Hospital Encounter [address] [place] [phone] Jennifer Rowe DO Abnormal mammogram Discharge Disposition: Home or Self Care from Last 3 Months Allergies Active Allergy Reactions Criticality Noted Date [...] for diagnostic mammogram and MRI Reschedule with [facility] breast center Assessment & Plan (04/20/2024 8:46 PM EDT): When imaging was scheduled , patient was Previous patient of [facility] but is willing to start care with The [facility] at [facility] E Will send orders Resolved Problems Problem [...] levels Return on next visit - agrees Immunizations Immunization Administration Dates Next Due MMR VACCINE (MMR II, PRIORIX) (IMM44) 03/11/2024 Rho (D) Immune Globulin 03/10/2024,12/17/2023 Tdap 03/10/2024(),01/08/2024 Social History Tobacco Use Types Packs/Day Years [...] Do you speak a language other than [place] at [facility]? No 03/09/2024 Do you want help [...] Info) Description 07/26/2025 7:30 AM EST Appointment [address] [place] [phone] Procedures Procedure Name Priority Date/Time Associated Diagnosis [...] Buck MD IMG US ORDERABLES Final Result * Pap Smear, Thin Prep (08/19/2024 12:00 AM EST) Vaginal/Cervical/ Endocervical OTHER / Unknown us Carolann Marion APRN, CNM PATHOLOGY/CYTOLOGY [facility] Final Result PATHOLOGY AND [facility]TOLOGY LABORATORY [address] [place] [address] * Hepatitis C Antibody w Reflex HCV Verifi (10/20/2023 2:48 PM EST) HCV Ab Non Reactive Non Reactive [facility] Blood 10/20/2023 2:48 PM EST 10/20/2023 Narrative [facility] - 10/21/2023 10:07 AM EST Performed at: 01 - [facility] [id number] Tie Cutter: Sami Coulter PhD, Phone: [phone] us Jennifer Rowe DO LAB BLOOD ORDERABLES Final Resul t [facility] * HIV-1 Antigen with HIV-1/2 Antibody (10/20/2023 2:48 PM EST) HIV Screen 4th Generation wRfx Non Reactive Non Reactive [facility] Comment: HIV Negative HIV-1/HIV-2 antibodies and HIV-1 p24 antigen were NOT detected. There is no laboratory evidence of HIV infection. Blood 10/20/2023 2:48 PM EST 10/20/2023 Narrative [facility] - 10/21/2023 10:07 AM EST Performed at: 01 - [facility] [address] [id number] Tie Cutter: Sami Coulter PhD, Phone: [phone] us Jennifer Rowe DO LAB BLOOD ORDERABLES Final Resul t [facility] from Last 3 Months or Most Recently Relevant to Health Maintenance Insurance [facility] MEDICAID Advance Directives For more information, please contact: [phone] * Full Code (Latest Code Status on File) Date Activated Date Inactivated Comments 03/09/2024 1:31 PM 03/11/2024 2:42 PM * Full Code Date Activated Date Inactivated Comments 03/09/2024 9:24 AM 03/09/2024 1:31 PM Care Teams Central Lab Technician Relationship Specialty Start Date End Date Jennifer Rowe DO [address] [place] [phone] PCP - General Obstetrics and Gynecology 10/11/24 Carolann Marion, TOMI, CNM [address] [place] [phone] Cloth Layer Certified Nurse Cloth Layer 10/11/24
--- OUTSIDE RECORDS SUMMARY | 2025-07-22 10:01 | XMS_ITS | Encounter Summary ---
Author Organization [employer] ([place], [place], [place], [place], [place]) Address [address] [place] [address] Care Team Providers Care Portable Sawmill Operator Name Role Phone Jennifer Rowe Primary Care Provider [phone] Carolann Marion APRN, CN Unavailable [phone] Encounter Details Date Type Department Care Team (Late st Contact Info) Description 10/01/2018 Transcribed Document [facility] Family Medicine [facility] [place] [address] ProviderMiguel MD [address] [place] [address] Social History Tobacco Use Types Packs/Day Years Used Date Smoking Tobacco: Never Assessed Comments Unknown Sex and Gender Information Value Date Recorded Sex Assigned at Not on file Legal Sex Female 5:46 PM CDT Gender Identity Not on file Sexual Orientation Not on file documented as of this encounter Miscellaneous Notes * Cerner Conversion Note - Miguel ProviderMD - 10/01/2018 10:17 AM ASSIGNMENT DESK ASSISTANT [place] [address], [place] [address] Patient Copy Patient Information: Name: LOVELY HARGROVE Current Date: 10/01/2018 10:17:17 : 1990 Patient Address: [facility] [address] [facility] [address] Patient Attending Physician: GRAHAM TORRES MD Primary Care Provider: JIMENA DAS MD-[facility] Primary Care Provider Discharge Diagnosis: Weight on Admission: 173 lb, 2 oz Comment: Follow-up Instructions: With: Address: When: [facility], [address] [facility], [address] [place], [place] [id number] Business (1) Bariatric Office - PHONE , [address], [address] [place], [place] [phone] Business (1) Within As needed Comments: office will contact for surgery date & time Discharge Instructions: Diet after Discharge: Regular diet as tolerated Activity after Discharge: Rest and relax today, No strenuous activities, No heavy lifting over 10 pounds Driving after Discharge: Do not drive May Return to Work/School: return to normal activity tmw, see recomendations below Showering/Bathing: May shower Immunizations Documented During Stay: No Immunizations Found Heart Failure Discharge Instructions (if any): Stroke Related Discharge Instructions (if any): Warfarin Related Discharge Instructions (if any): Final Medication List: Other Medications levothyroxine (Synthroid) 50 Microgram(s) Oral Every Day. multivitamin 1 Tablet(s) Oral Every Day. stacy vitamins and iron. Non Formulary (Non Formulary med) Tremfya 100 mg subcutaneous every 2-3 mos. ondansetron (Zofran ODT 4 mg oral tablet, disintegrating) 1 Tablet(s) Oral Every 6 Hours. Refills: 0. Patient Allergies: Cefzil Medication Instructions: Take your medications faithfully. Do NOT skip [...] cramping, rapid heartbeat, difficulty sleeping, and nervousness. Patient education materials: Esophagogastroduodenoscopy, Care After Introduction Refer to this sheet in the next [...] After the procedure, it is common to have:??? A sore throat. ??? Nausea. ??? Bloating. ??? Dizziness. ??? Fatigue. Follow these instructions at home: ??? Do noteat or drink anything until the numbing medicine (local anesthetic) has worn off and your gag reflex has returned. You will know that the local anesthetic has worn off when you can swallow comfortably. ??? Do notdrive for 24 hours if you received a medicine to help you relax (sedative). ??? If your health care provider took a tissue sample for testing during the procedure, make sure to get your test results. This is your responsibility. Ask your health care provider or the department performing the test when your results will be ready. ??? Keep all follow-up visits as told by your health care provider. This is important. Contact a health care provider if: ??? You cannot stop coughing. ??? You are not urinating. ??? You are urinating less than usual. Get help right away if: ??? You have trouble swallowing. ??? You cannot eat or drink. ??? You have throat or chest pain that gets worse. ??? You are dizzy or light-headed. ??? You faint. ??? You have nausea or vomiting. ??? You have chills. ??? You have a fever. ??? You have severe abdominal pain. ??? You have black, tarry, or bloody stools. This information is not intended to replace advice given to you by your health care provider. Make sure you discuss any questions you have with your health care provider. Document Released: 08/18/2013 Document Revised: 02/06/2017 Document Reviewed: 07/25/2016 ? 2017 Elsevier CIGARETTE SMOKING: The facts are clear, cigarette smoking will shorten your life. Smoking can cause many illnesses along the way. As a healthcare provider, we recommend that you stop smoking. Assistance with quitting is available by contacting 2-597-RCTVSeriouslyNOW. This is a free resource providing counseling, support, and referral. Or you may contact your personal physician. STROKE is an EMERGENCY Every Minute Counts ACT F.A.S.T! FACE ?? Facial droop ?? Uneven smile ARM ?? Arm numbness ?? Arm weakness SPEECH ?? Slurred speech ?? Difficulty speaking or understanding TIME ?? Call 911 and get to the hospital immediately Have the ambulance go to the nearest stroke center. STROKE Risk Factors High blood pressure High cholesterol Heart Disease Diabetes Smoking Heavy alcohol use Physical inactivity and obesity Atrial Fibrillation (irregular heartbeat) Family history of stroke Reminder: Be sure to sign up for the [facility] patient portal, which gives you 07/04 access to your medical information ??? including these discharge instructions ??? using your computer, smartphone, or tablet. Just go to ividence to get started. Questions? Call . [facility] would like to thank you for allowing us to assist you with your healthcare needs. [place] Arce CHRISTINA G, (or outside dealer sales representative) have received the above patient education materials/instructions and have verbalized understanding: Patient Signature _ Date/Time Patient Gravel Inspector Signature (if needed) Date/Time Clinician/Hospital Gravel Inspector Signature (if needed) Date/Time Electronically signed by Damir, [facility] Conversion Aircraft Structural Fitter Cerner at 12/29/2022 8:39 PM CDT documented in this encounter Plan of Treatment Upcoming Encounters Date Type Department Care Team (Late st Contact Info) Description 07/26/2025 7:30 AM EST Appointment [facility] [address] [facility] [address] [place] [address] documented as of this encounter Visit Diagnoses Not on filedocumented in this encounter Care Teams Portable Sawmill Operator Relationship Specialty Start Date End Date Jennifer Rowe DO [address] [place] [address] PCP - General Obstetrics and Gynecology 10/11/24 Carolann Marion, TOMI, CNM [address] [place] [phone] Skin Specialist Certified Nurse Skin Specialist 10/11/24 documented as of this encounter
--- OUTSIDE RECORDS SUMMARY | 2025-07-22 10:01 | XMS_ITS | Encounter Summary ---
Author Organization [employer] ([place], [place], [place], [place], [place]) Address [address] [place] [address] Care Team Providers Care Mattress Spring Encaser Name Role Phone Jennifer Rowe DO Primary Care Provider [phone] Carolann Marion APRN, CN Unavailable [phone] Encounter Details Date Type Department Care Team (Late st Contact Info) Description 10/06/2018 Transcribed Document [facility] Family Medicine [facility] [place] [address] ProviderMiguel MD [address] [place] [id number] Social History Tobacco Use Types Packs/Day Years Used Date Smoking Tobacco: Never Assessed Comments Unknown Sex and Gender Information Value Date Recorded Sex Assigned at Not on file Legal Sex Female 5:46 PM CDT Gender Identity Not on file Sexual Orientation Not on file documented as of this encounter Miscellaneous Notes * Cerner Conversion Note - Miguel Juarez MD - 10/06/2018 11:23 AM SALES AND SERVICE CONSULTANT FABIANA Main OR PACU Summary Primary Physician: GRAHAM TORRES MD Finalized Date/Time: 10/06/18 13:17:08 Pt. Name: LOVELY HARGROVE.O.B./Sex: 1990 Female Med Rec #: [id number] Physician: GRAHAM TORRES MD Financial #: [id number] Pt. Type: O Room/Bed: Admit/Disch: 10/06/18 08:31:00 - Institution: [facility] [place] PACU Case Times Entry 1 In PACU I 10/06/18 12:06:00 Ready for PACU 10/06/18 13:09:00 Discharge Discharge from PACU 10/06/18 13:09:00 I Last Modified By: Anna Chauhan Rn 10/06/18 13:09:55 [facility] Main OR PACU Case Times Audit 10/06/18 13:09:55 Roustabout: RADHA Modifier: COCKREH <+> 1 Ready for PACU Discharge <+> 1 Discharge from PACU I Finalized By: Anna Chauhan, Rn Document Signatures Signed By: Anna Chauhan Rn 10/06/18 13:17 Electronically signed by Damir [facility] Conversion House Worker General Cerner at 12/29/2022 8:33 PM CDT documented in this encounter Plan of Treatment Upcoming Encounters Date Type Department Care Team (Late st Contact Info) Description 07/26/2025 7:30 AM EST Appointment [address] [place] [address] documented as of this encounter Visit Diagnoses Not on filedocumented in this encounter Care Teams Mattress Spring Encaser Relationship Specialty Start Date End Date Jennifer Rowe DO [address] [place] [address] PCP - General Obstetrics and Gynecology 10/11/24 Carolann Marion, TOMI, CNM [address] [place] [address] Educational Administrator Certified Nurse Educational Administrator 10/11/24 documented as of this encounter
--- OUTSIDE RECORDS SUMMARY | 2025-07-22 10:01 | XMS_ITS | Encounter Summary ---
Author Organization [employer] ([place], [place], [place], [place], [place]) Address [address] [place] [address] Care Team Providers Care Instrumental Teacher Name Role Phone Jennifer Rowe DO Primary Care Provider Reji Marion APRN, CN Unavailable [phone] Encounter Details Date Type Department Care Team (Late st Contact Info) Description 10/01/2018 Transcribed Document [facility] [address] [place] [address] ProviderMiguel MD [address] [place] [id number] Social History Tobacco Use Types Packs/Day Years Used Date Smoking Tobacco: Never Assessed Comments Unknown Sex and Gender Information Value Date Recorded Sex Assigned at Not on file Legal Sex Female 5:46 PM CDT Gender Identity Not on file Sexual Orientation Not on file documented as of this encounter Miscellaneous Notes * Cerner Conversion Note - Miguel ProviderMD - 10/01/2018 9:36 AM WRITING MANAGER Pre Procedure Adult Entered On: 10/01/2018 9:41 EST Performed On: 10/01/2018 9:36 EST by GUSTAVO MCNEILL RN Height and Weight, Clinical Dosing Height Source : Stated Height Entry Format : Sully Height, Feet : 5 ft(Converted to: 152 cm, 60 Inch) Height, Inches : 0 Inch(Converted to: 0 ft 0 Inch, 0.00 cm) Clinical Height : 152.4 cm Weight Source : Standing scale Weight Entry Format : Sully Clinical Dosing Weight : 78.69 kg Weight, Pounds : 173 lb Weight, Ounces : 2 oz Body Surface Area (BSA) : 1.76 m2 Body Mass Index : 33.9 kg/m2 (HI) [place] Body Weight : 45 kg GUSTAVO MCNEILL RN - 10/01/2018 9:36 EST Health Histories Smoking Status : Never (less than 100 in lifetime; none in last 30 days) Smokeless Tobacco Status : Never GUSTAVO MCNEILL RN - 10/01/2018 9:36 EST Social History (As Of: 10/01/2018 09:41:34 EST) Tobacco: Smoking Status Never smoker. (Last Updated: 09/05/2014 04:10:11 EST by SAMMI CHI RN) Alcohol: Use in Last 12 Months: No. (Last Updated: 09/05/2014 04:10:15 EST by SAMMI CHI RN) Substance Abuse: Drug Use Hx: No. Use in Last 12 Months: No. (Last Updated: 12/27/2016 12:43:05 EDT by Shreya Ohara, TORIBIO) Nutrition/Health: Type of diet: low carb. Caffeine [...] Updated: 09/03/2017 09:35:58 EST by GEOVANY DAVIDSON, RN) Employment/School: Employed (Last Updated: 09/05/2014 04:11:22 EST by CARLITA LOPEZ MD) Infectious Disease History Infectious Disease History : Chicken pox/Shingles, Influenza Isolation Needed : Standard Fever/Chills Last 48 Hours : No Travel To Regions with Travel Advisories : No Travel Outside [place] Within Last 30 Days : No Contact With Traveler to Advisory Region : No Tuberculosis Symptoms : None GUSTAVO MCNEILL RN - 10/01/2018 9:36 EST Anesthesia/Transfusion History Family History of Anesthesia Reaction : No prior transfusion(s) Transfusion History : Prior anesthesia reaction Type of Anesthesia Reaction : Other: Wakes up Crying Family History of Anesthesia Reaction : None GUSTAVO MCNEILL RN - 10/01/2018 9:36 EST Functional Assessment Living Situation : Home Patient Lives With : Significant other(s) Current Home Treatments : None GUSTAVO MCNEILL RN - 10/01/2018 9:36 EST Psychosocial History Chronic/Terminal Illness w/Freq Visits : No Do You Have a History of the Following? : Patient denies history Currently in Unsafe Situation : No Tried to Harm Yourself in the Past? : No Thoughts of Harming/Killing Yourself : No GUSTAVO MCNEILL RN - 10/01/2018 9:36 EST Advance Directive Patient has Advance Directive *Q : No, patient refuses Advance Directive information GUSTAVO MCNEILL RN - 10/01/2018 9:36 EST Teaching/Learning Assessment Barriers To Learning : None evident Individuals Taught : Patient Readiness to Learn : Cooperative Highest Level of Education : High school Baseline Knowledge of Topic : Good Readiness to Learn : Explanation Learning Style Preferences Patient : Verbal explanation Learning Style Preferences Family : Verbal explanation GUSTAVO MCNEILL RN - 10/01/2018 9:36 EST General Info Preferred Name : Colleen Arrived From : Home Mode of Arrival on Unit : Ambulatory Legal Guardian : Mother Support Person/Patient Associate Media Director : Yes Want Family/Rep/Phys Notified of Admit : Yes Name/Contact Info Fam/Rep Notified Adm : reji julio Name/Contact Info Physician Notified Adm : edmundo todd Emergency Contact #1 : reji kim Emergency Contact #1 Emergency Contact #1 Relationship : mother Emergency Contact #2 : na Emergency Contact #2 Phone Number : na Emergency Contact #2 Relationship : na Primary Language : Urdu Preferred Communication Mode : Verbal Communication Barrier : None GUSTAVO MCNEILL RN - 10/01/2018 9:36 EST Sleep Apnea Risk Assmt Hx of Obstructive Sleep Apnea Diagnosis : No Snore Loudly : No Tired, Fatigued, or Sleepy During Day : No Observed Stopping Breathing During Sleep : No Have/Are Being Treated for Hypertension : No STOP Sleep Apnea Risk Level Score : 0 STOP Sleep Apnea Risk Level : Low BMI Greater Than 35 kg/m2 : No Age over 50 Years Old : No Gender Male : No Neck Circumference Measured (cms) : 36 cm STOP-BANG Sleep Apnea Risk Level Score : 0 Neck Circumference Greater Than 40 cm : No GUSTAVO MCNEILL RN - 10/01/2018 9:36 EST Jared Scale Jared Sensory Perception : No impairment Jared Moisture : Rarely moist Jared Activity : Walks frequently Jared Mobility : No limitation Jared Nutrition : Adequate Jared Friction and Shear : No apparent problem Jared Score : 22 GUSTAVO MCNEILL RN - 10/01/2018 9:36 EST Pain Assessment Pain Assessment : Initial assessment Pain Scale Goal : 0 Pain Scale Used : 0-10 Scale GUSTAVO MCNEILL RN - 10/01/2018 9:36 EST Fall Risk Scales ABCs Fall Injury Risk Identification : None OGDEN Hx Falls Immediate/Within 3 Months : No Ogden Secondary Diagnosis : No OGDEN Use of Ambulatory Aid : None OGDEN IV Therapy or IV Access : Yes Ogden Gait/Transferring : Normal, bedrest, immobile Ogden Mental Status : Oriented to own ability Ogden Fall Risk Score : 20 OGDEN Fall Scale Risk Level : 0-24 Low Risk Palmer Fall Interventions : Adequate lighting, Assistive devices within reach, Bed in low position, Call device within reach, Fall prevention handout/education per facility policy, Frequent orientation to call device, Frequent orientation to surroundings, Hourly comfort/safety rounds, Non-slip footwear, Personal items within reach, Reinforced to call for assistance before getting out of bed, Room free of clutter/spills, Upper side-rails up, Wheels locked, Wires/Cords secured GUSTAVO MCNEILL RN - 10/01/2018 9:36 EST Valuables and Belongings Valuables and Belongings : Clothing Clothing : Common streetwear Clothing Disposition : Bedside GUSTAVO MCNEILL RN - 10/01/2018 9:36 EST Pain Scale Intensity : 0 GUSTAVO MCNEILL RN - 10/01/2018 9:36 EST Image 4 - Images currently included in the form version of this document have not been included in the text rendition version of the form. documented in this encounter Plan of Treatment Upcoming Encounters Date Type Department Care Team (Late st Contact Info) Description 07/26/2025 7:30 AM EST Appointment [place] [address] [place] [address] documented as of this encounter Visit Diagnoses Not on filedocumented in this encounter Care Teams Instrumental Teacher Relationship Specialty Start Date End Date Jennifer Rowe DO [address] [place] [address] PCP - General Obstetrics and Gynecology 10/11/24 Reji Marion, TOMI, CNM [address] [place] [address] Data Security Coordinator Certified Nurse Data Security Coordinator 10/11/24 documented as of this encounter
--- OUTSIDE RECORDS SUMMARY | 2025-07-22 10:01 | XMS_ITS | Encounter Summary ---
Author Organization [employer] ([place], [place], [place], [place], [place]) Address [address] [place] [address] Care Team Providers Care Independent Film Maker Name Role Phone Jennifer Rowe Primary Care Provider [phone] Carolann Marion APRN, CN Unavailable [phone] Encounter Details Date Type Department Care Team (Late st Contact Info) Description 10/01/2018 Transcribed Document [facility] Family [place] [facility] [place] [address] ProviderMiguel MD [address] [place] [address] Social History Tobacco Use Types Packs/Day Years Used Date Smoking Tobacco: Never Assessed Comments Unknown Sex and Gender Information Value Date Recorded Sex Assigned at Not on file Legal Sex Female 5:46 PM CDT Gender Identity Not on file Sexual Orientation Not on file documented as of this encounter Miscellaneous Notes * Cerner Conversion Note - Miguel ProviderMD - 10/01/2018 10:15 AM ATTENDANT COIN OPERATED LAUNDRY [place] [address], [place] [address] Patient Copy Patient Information: Name: LOVELY HARGROVE Current Date: 10/01/2018 10:15:33 : 1990 Patient Address: [facility] [address] [facility] [address] Patient Attending Physician: GRAHAM TORRES MD Primary Care Provider: JIMENA DAS MD-[facility] Primary Care Provider Discharge Diagnosis: Weight on Admission: 173 lb, 2 oz Comment: Follow-up Instructions: With: Address: When: [facility], [address] [facility] [place], [place] [phone] Business (1) Bariatric Office - PHONE , [address], [address] [place], [place] [id number] Business (1) Within As needed Comments: office will contact for surgery date & time Discharge Instructions: Diet after Discharge: Regular diet as tolerated Activity after Discharge: Rest and relax today, No strenuous activities, No heavy lifting over 10 pounds Driving after Discharge: Do not drive May Return to Work/School: return to normal activity tmw, see recomendations in discharge Showering/Bathing: May shower Immunizations Documented During Stay: [...] Assistance with quitting is available by contacting 3-129-VSDV-NOW. This is a free resource providing counseling, [...] Be sure to sign up for the [facility] patient portal, which gives you 07/04 access to your medical information ??? including these discharge instructions ??? using your computer, smartphone, or tablet. Just go to [employer] to get started. Questions? Call . [facility] would like to thank you for allowing us to assist you with your healthcare needs. [place] Arce CHRISTINA G, (or printing sales representative) have received the above patient education materials/instructions and have verbalized understanding: Patient Signature _ Date/Time Patient Package Car Driver Signature (if needed) Date/Time Clinician/Hospital Package Car Driver Signature (if needed) Date/Time Electronically signed by Damir, [facility] Conversion Ball Machine Operator Cerner at 12/29/2022 8:36 PM CDT documented in this encounter Plan of Treatment Upcoming Encounters Date Type Department Care Team (Late st Contact Info) Description 07/26/2025 7:30 AM EST Appointment [facility] [address] [facility] [address] [place] [address] documented as of this encounter Visit Diagnoses Not on filedocumented in this encounter Care Teams Independent Film Maker Relationship Specialty Start Date End Date Jennifer Rowe DO [address] [place] [address] PCP - General Obstetrics and Gynecology 10/11/24 Carolann Marion, TOMI, CNM [address] [place] [address] Batch Mixer Operator Certified Nurse Batch Mixer Operator 10/11/24 documented as of this encounter
--- OUTSIDE RECORDS SUMMARY | 2025-07-22 10:01 | XMS_ITS | Encounter Summary ---
Author Organization [employer] ([place], [place], [place], [place], [place]) Address [address] [place] [address] Care Team Providers Care Floor Sanding Machine Operator Name Role Phone RoweJennifer devi DO Primary Care Provider [phone] Carolann Marion APRN, CN Unavailable [phone] Encounter Details Date Type Department Care Team (Late st Contact Info) Description 10/01/2018 Transcribed Document [facility] Family Medicine [address] [place] [address] ProviderMiguel MD [address] [place] [id number] Social History Tobacco Use Types Packs/Day Years Used Date Smoking Tobacco: Never Assessed Comments Unknown Sex and Gender Information Value Date Recorded Sex Assigned at Not on file Legal Sex Female 5:46 PM CDT Gender Identity Not on file Sexual Orientation Not on file documented as of this encounter Miscellaneous Notes * Cerner Conversion Note - Miguel ProviderMD - 10/01/2018 10:16 AM EMPLOYMENT SECURITY OFFICER Discharge Instructions Entered On: 10/01/2018 10:17 EST Performed On: 10/01/2018 10:16 EST by Ghislaine Chen Rn DC Instructions [...] to normal activity tmw, see recomendations below Showering/Bathing : May shower Ghislaine Chen Rn - 10/01/2018 10:16 EST documented in this encounter Plan of Treatment Upcoming Encounters Date Type Department Care Team (Late st Contact Info) Description 07/26/2025 7:30 AM EST Appointment [address] [place] [address] documented as of this encounter Visit Diagnoses Not on filedocumented in this encounter Care Teams Floor Sanding Machine Operator Relationship Specialty Start Date End Date Jennifer Rowe DO [address] [place] [address] PCP - General Obstetrics and Gynecology 10/11/24 Carolann Marion, MANAGER OF [facility], CNM [address] [place] [address] Vehicle Detailer Certified Nurse Vehicle Detailer 10/11/24 documented as of this encounter
--- OUTSIDE RECORDS SUMMARY | 2025-07-22 10:01 | XMS_ITS | Encounter Summary ---
Author Organization [facility] ([place], [place], [place], [place], [place]) Address [address] [place] [address] Care Team Providers Care Linotype Machinist Apprentice Name Role Phone Jennifer Rowe DO Primary Care Provider Carolann Marion APRN, CN Unavailable [phone] Encounter Details Date Type Department Care Team (Late st Contact Info) Description 10/06/2018 Transcribed Document [facility] Family [place] [address] ProviderMiguel MD [address] [place] [address] [phone] Social History Tobacco Use Types Packs/Day Years Used Date Smoking Tobacco: Never Assessed Comments Unknown Sex and Gender Information Value Date Recorded Sex Assigned at Not on file Legal Sex Female 5:46 PM CDT Gender Identity Not on file Sexual Orientation Not on file documented as of this encounter Miscellaneous Notes * Cerner Conversion Note - Miguel Juarez MD - 10/06/2018 11:23 AM PRINT LINE TAILER [facility] Main OR IntraOp Summary Primary Physician: GRAHAM TORRES MD Finalized Date/Time: 10/06/18 12:11:34 Pt. Name: LOVELY HARGROVE.O.B./Sex: 1990 Female Med Rec #: [id number] Physician: GRAHAM TORRES MD Financial #: [id number] Pt. Type: O Room/Bed: Admit/Disch: 10/06/18 08:31:00 - Institution: [facility] IntraOp Case Attendance Entry 1 Entry 2 Entry 3 Case Attendee GRAHAM TORRES MD TURNER, ASHLEY, PA Smith, Kayla R., Industrial Safety And Health Manager Role Performed Surgeon/Proceduralist, Physician medical practice assistant Scrub, First First Time In 10/06/18 11:08:00 10/06/18 11:08:00 10/06/18 11:08:00 Time Out 10/06/18 11:57:00 10/06/18 12:04:00 10/06/18 11:34:00 Procedure Cholecystectomy Cholecystectomy Cholecystectomy Laparoscopic, Hernia Laparoscopic, Hernia Laparoscopic, Hernia Repair Internal Repair Internal Repair Internal Laparoscopic Laparoscopic Laparoscopic Other Attendee Superficial Wound Closed By: Last Modified By: Mackenzie Freeman, Rn Mackenzie Freeman, Mackenzie Saxena, Rn 10/06/18 12:10:56 10/06/18 12:10:56 10/06/18 12:10:56 Entry 4 Entry 5 Entry 6 Case Attendee MORIS COLLINS, Mackenzie Freeman, RASHAAD Caruso V, CAR SALES ASSOCIATE Industrial Safety And Health Manager Role Performed Scrub, Second Assembler Wire Group, Second CAR SALES ASSOCIATE/Nurse Traffic Attendant Time In 10/06/18 11:34:00 10/06/18 11:08:00 10/06/18 11:08:00 Time Out 10/06/18 12:04:00 10/06/18 12:04:00 10/06/18 12:04:00 Procedure Cholecystectomy Cholecystectomy Cholecystectomy Laparoscopic, Hernia Laparoscopic, Hernia Laparoscopic, Hernia Repair Internal Repair Internal Repair Internal Laparoscopic Laparoscopic Laparoscopic Other Attendee Superficial Wound Closed By: Last Modified By: Mackenzie Freeman, Mackenzie Saxena, Rn Mackenzie Freeman, Rn 10/06/18 12:10:56 10/06/18 12:10:56 10/06/18 12:10:56 Entry 7 Entry 8 Case Attendee Nikunj Ochoa JULIANA, RN Role Performed Grease Refiner Operator, Ancillary Assembler Wire Group, First Time In 10/06/18 11:08:00 10/06/18 11:08:00 Time Out 10/06/18 12:04:00 10/06/18 12:04:00 Procedure Cholecystectomy Cholecystectomy Laparoscopic, Hernia Laparoscopic, Hernia Repair Internal Repair Internal Laparoscopic Laparoscopic Other Attendee Superficial Wound Closed By: Last Modified By: Mackenzie Freeman, Mackenzie Saxena Rn 10/06/18 12:10:56 10/06/18 12:10:56 [facility] IntraOp Case Attendance Audit 10/06/18 12:10:56 Manual Lathe Operator: [id number] Modifier: [id number] 1 <*> Procedure Cholecystectomy Laparoscopic 2 <*> Procedure Cholecystectomy Laparoscopic 3 <*> Procedure Cholecystectomy Laparoscopic 4 <*> Procedure Cholecystectomy Laparoscopic 5 <*> Procedure Cholecystectomy Laparoscopic 6 <*> Procedure Cholecystectomy Laparoscopic 7 <*> Procedure Cholecystectomy Laparoscopic 8 <*> Procedure Cholecystectomy Laparoscopic 10/06/18 12:10:40 Manual Lathe Operator: [id number] Modifier: [id number] 1 <*> Procedure Cholecystectomy Laparoscopic, Hernia Repair Internal Laparoscopic 2 <*> Procedure Cholecystectomy Laparoscopic, Hernia Repair Internal Laparoscopic 3 <*> Procedure Cholecystectomy Laparoscopic, Hernia Repair Internal Laparoscopic 4 <*> Procedure Cholecystectomy Laparoscopic, Hernia Repair Internal Laparoscopic 5 <*> Procedure Cholecystectomy Laparoscopic, Hernia Repair Internal Laparoscopic 6 <*> Procedure Cholecystectomy Laparoscopic, Hernia Repair Internal Laparoscopic 7 <*> Procedure Cholecystectomy Laparoscopic, Hernia Repair Internal Laparoscopic 8 <*> Procedure Cholecystectomy Laparoscopic, Hernia Repair Internal Laparoscopic 10/06/18 12:04:31 Manual Lathe Operator: [id number] Modifier: [id number] 1 <*> Procedure Cholecystectomy Laparoscopic, Hernia Repair Internal Laparoscopic 2 <+> Time Out 2 <*> Procedure Cholecystectomy Laparoscopic, Hernia Repair Internal Laparoscopic 3 <*> Procedure Cholecystectomy Laparoscopic, Hernia Repair Internal Laparoscopic 4 <+> Time Out 4 <*> Procedure Cholecystectomy Laparoscopic, Hernia Repair Internal Laparoscopic 5 <+> Time Out 5 <*> Procedure Cholecystectomy Laparoscopic, Hernia Repair Internal Laparoscopic 6 <+> Time Out 6 <*> Procedure Cholecystectomy Laparoscopic, Hernia Repair Internal Laparoscopic 7 <+> Time Out 7 <*> Procedure Cholecystectomy Laparoscopic, Hernia Repair Internal Laparoscopic 8 <+> Time Out 8 <*> Procedure Cholecystectomy Laparoscopic, Hernia Repair Internal Laparoscopic 10/06/18 11:58:40 Manual Lathe Operator: [id number] Modifier: [id number] 1 <+> Time Out 1 <*> Procedure Cholecystectomy Laparoscopic, Hernia Repair Internal Laparoscopic 10/06/18 11:48:00 Manual Lathe Operator: [id number] Modifier: [id number] 1 <*> Procedure Cholecystectomy Laparoscopic 2 <*> Procedure Cholecystectomy Laparoscopic 3 <*> Procedure Cholecystectomy Laparoscopic 4 <*> Procedure Cholecystectomy Laparoscopic 5 <*> Procedure Cholecystectomy Laparoscopic 6 <*> Procedure Cholecystectomy Laparoscopic 7 <*> Procedure Cholecystectomy Laparoscopic 8 <*> Procedure Cholecystectomy Laparoscopic 10/06/18 11:36:39 Manual Lathe Operator: [id number] Modifier: [id number] <+> 1 Procedure 2 <*> Procedure Cholecystectomy Laparoscopic 3 <*> Procedure Cholecystectomy Laparoscopic 4 <*> Procedure Cholecystectomy Laparoscopic 5 <*> Procedure Cholecystectomy Laparoscopic 6 <*> Procedure Cholecystectomy Laparoscopic 7 <*> Procedure Cholecystectomy Laparoscopic 8 <*> Procedure Cholecystectomy Laparoscopic 10/06/18 11:35:52 Manual Lathe Operator: [id number] Modifier: [id number] <+> Time Out 3 <*> Procedure Cholecystectomy Laparoscopic 4 <*> Time In 10/06/18 11:34:00 4 <*> Procedure Cholecystectomy Laparoscopic 10/06/18 11:09:49 Manual Lathe Operator: [id number] Modifier: [id number] <+> 1 Time In 2 <+> Time In 2 <*> Procedure Cholecystectomy Laparoscopic 3 <+> Time In 3 <*> Procedure Cholecystectomy Laparoscopic 4 <+> Time In 4 <*> Procedure Cholecystectomy Laparoscopic 5 <+> Time In 5 <*> Procedure Cholecystectomy Laparoscopic 6 <+> Time In 6 <*> Procedure Cholecystectomy Laparoscopic 7 <+> Time In 7 <*> Procedure Cholecystectomy Laparoscopic 8 <+> Time In 8 <*> Procedure Cholecystectomy Laparoscopic 10/06/18 11:02:08 Manual Lathe Operator: [id number] Modifier: [id number] 1 <*> Case Attendee GRAHAM TORRES MD 1 <*> Role Performed Surgeon/Proceduralist, First 2 <*> Case Attendee JESUS LILLY PA 2 <*> Role Performed Physician medical practice assistant 2 <*> Procedure Cholecystectomy Laparoscopic 3 <*> Case Attendee Natalya Tinoco, Industrial Safety And Health Manager 3 <*> Role Performed Scrub, First 3 <*> Procedure Cholecystectomy Laparoscopic 4 <*> Case Attendee MORIS COLLINS, Industrial Safety And Health Manager 4 <*> Role Performed Scrub, Second 4 <*> Procedure Cholecystectomy Laparoscopic 5 <+> Case Attendee 5 <*> Role Performed Assembler Wire Group, First 5 <*> Procedure Cholecystectomy Laparoscopic 6 <*> Case Attendee Mackenzie Freeman Rn 6 <*> Role Performed Assembler Wire Group, Second 6 <*> Procedure Cholecystectomy Laparoscopic 7 <*> Case Attendee OFE, RASHAAD V, CAR SALES ASSOCIATE 7 <*> Role Performed CAR SALES ASSOCIATE/Nurse Traffic Attendant 7 <*> Procedure Cholecystectomy Laparoscopic 8 <*> Case Attendee Nikunj Ochoa 8 <*> Role Performed Grease Refiner Operator, Ancillary 8 <*> Procedure Cholecystectomy Laparoscopic [facility] IntraOp Case Times Entry 1 Patient In Room Time 10/06/18 11:08:00 Out Room Time 10/06/18 12:04:00 Anesthesia Start Time 10/06/18 11:08:00 Stop Time 10/06/18 12:04:00 Anesthesia Ready 10/06/18 11:08:00 Surgery / Procedure Times Start Time 10/06/18 11:23:00 Stop Time 10/06/18 11:57:00 Last Modified By: Mackenzie Freeman Rn 10/06/18 12:04:09 [facility] IntraOp Case Times Audit 10/06/18 12:04:09 Manual Lathe Operator: [id number] Modifier: [id number] <+> 1 Out Room Time <+> 1 Stop Time 10/06/18 11:59:06 Manual Lathe Operator: [id number] Modifier: [id number] <+> 1 Stop Time 10/06/18 11:24:19 Manual Lathe Operator: [id number] Modifier: [id number] <+> 1 Start Time 10/06/18 11:15:03 Manual Lathe Operator: [id number] Modifier: [id number] <+> 1 Start Time <+> 1 Anesthesia Ready [facility] IntraOp Cautery Entry 1 ESU Identification Cautery Type Monopolar ESU ID Number [id number] ID Type Hospital Number Cautery Settings Cut Setting 0 Coag Setting 30 ESU Grounding Pad Ground Pad Type Reusable electrode pad Grounding Pad Site Upper Back Grounding Pad Site Intact Skin Condition Before Cautery Grounding Pad Site Intact Skin Condition After Cautery Last Modified By: Mackenzie Freeman Rn 10/06/18 11:28:44 [facility] IntraOp Cautery Audit 10/06/18 11:28:44 Manual Lathe Operator: [id number] Modifier: [id number] 1 <*> ID Number [id number] 10/06/18 11:07:13 Manual Lathe Operator: [id number] Modifier: [id number] 1 <*> Cautery Type Monopolar ESU 1 <*> Coag Setting 30 1 <*> Cut Setting 0 1 <*> Ground Pad Type Reusable electrode pad 1 <*> Grounding Pad Site Upper Back 1 <+> ID Number 1 <*> ID Type Hospital Number 1 <*> Grounding Pad Site Skin Condition Intact Before Cautery 1 <*> Grounding Pad Site Skin Condition Intact After Cautery [facility] IntraOp Communication Entry 1 Communication To Family/Significant other Comment start Communication By Mackenzie Freeman Rn Date and Time 10/06/18 11:26:00 Last Modified By: Mackenzie Freeman Rn 10/06/18 11:28:09 [facility] IntraOp Communication Audit 10/06/18 11:28:09 Manual Lathe Operator: [id number] Modifier: [id number] <+> 1 Date and Time <+> 1 Comment [facility] IntraOp Counts Verification Entry 1 Procedure Cholecystectomy Laparoscopic, Hernia Repair Internal Laparoscopic Count Info Count Type Sponge, Sharps, Instrument, Miscellaneous Counts Verification Baseline/pre-procedure Sequence Count Results Not Applicable Counts Performed By Count Performed By Natalya Tinoco, Scrub (Scrub) Tech Count Performed By HELEN CLIFFORD RN (RN) Last Modified By: Mackenzie Freeman Rn 10/06/18 12:10:58 [facility] IntraOp Counts Verification Audit 10/06/18 12:10:58 Manual Lathe Operator: [id number] Modifier: [id number] 1 <*> Procedure Cholecystectomy Laparoscopic 10/06/18 12:10:41 Manual Lathe Operator: [id number] Modifier: [id number] 1 <*> Procedure Cholecystectomy Laparoscopic, Hernia Repair Internal Laparoscopic 10/06/18 11:48:02 Manual Lathe Operator: [id number] Modifier: [id number] 1 <*> Procedure Cholecystectomy Laparoscopic [facility] IntraOp Counts Final Entry 1 Procedure Cholecystectomy Laparoscopic, Hernia Repair Internal Laparoscopic Final Count Info Count Type Sponge, Sharps, Miscellaneous Counts Verification Skin Closure/end of Sequence procedure Count Results Correct, surgeon notified Counts Performed By Count Performed By MORIS COLLINS, (Scrub) Industrial Safety And Health Manager Count Performed By HELEN CLIFFORD RN (RN) Last Modified By: Mackenzie Freeman Rn 10/06/18 12:10:59 [facility] IntraOp Counts Final Audit 10/06/18 12:10:59 Manual Lathe Operator: [id number] Modifier: [id number] 1 <*> Procedure Cholecystectomy Laparoscopic 10/06/18 12:10:43 Manual Lathe Operator: [id number] Modifier: [id number] 1 <*> Procedure Cholecystectomy Laparoscopic, Hernia Repair Internal Laparoscopic 10/06/18 11:51:58 Manual Lathe Operator: [id number] Modifier: [id number] 1 <*> Procedure Cholecystectomy Laparoscopic, Hernia Repair Internal Laparoscopic 1 <*> Count Performed By (Scrub) Natalya Tinoco, Industrial Safety And Health Manager 1 <+> Counts Verification Sequence 10/06/18 11:48:03 Manual Lathe Operator: [id number] Modifier: [id number] 1 <*> Procedure Cholecystectomy Laparoscopic [facility] IntraOp Cultures and Spec Summary Entry 1 Cultrures and Specimens Specimen Ordered: Yes Specimens Types Pathology Specimen(s) Labeled Pathology and Sent to Last Modified By: Mackenzie Freeman Rn 10/06/18 11:29:45 [facility] IntraOp Delays Entry 1 Delay Reason Other Duration 15 Minute(s) Last Modified By: Mackenzie Freeman Rn 10/06/18 11:30:13 [facility] IntraOp Departure from OR Entry 1 Integumentary Assessment Integumentary WDL Assessment WDL Transfer/Handoff Transfer to PACU Phase I Handoff Method Bedside/Face to face Post-op Transport Stretcher/Gurney Via Patient Transport HELEN CLIFFORD RN, Accompanied by RASHAAD THAKUR CRNA Last Modified By: Mackenzie Freeman Rn 10/06/18 11:08:07 [facility] IntraOp Dressing and Packing Entry 1 Type Dressing Location ABDOMEN Wound Dressing Item 2x2's, Skin adhesive, Steristrip Applied By JESUS LILLY PA Other Comments 2x2 covaderms to trocar sites Last Modified By: Mackenzie Freeman Rn 10/06/18 11:30:48 [facility] IntraOp Fire Risk Assessment Entry 1 Fire Info Surgical Site or 0- No Incision Above the Xyphoid Open O2 Source 0- No (Mask or Cannula) Available Ignition 1- Yes (ESU, Laser, Light Source) Fire Risk 1 Assessment Score Fire Score Fire Risk Yes Assessment Complete Fire Risk HELEN CLIFFORD RN Assessment Verified By Fire Risk 10/06/18 11:08:00 Assessment Verified Date/Time Fire Risk Standard Fire Yes Safety Precautions Followed Last Modified By: Mackenzie Freeman Rn 10/06/18 11:31:14 [facility] IntraOp Fire Risk Assessment Audit 10/06/18 11:31:14 Manual Lathe Operator: [id number] Modifier: [id number] 1 <*> Fire Risk Assessment Verified 10/06/18 11:15:00 Date/Time 10/06/18 11:16:43 Manual Lathe Operator: [id number] Modifier: [id number] <+> 1 Fire Risk Assessment Verified Date/Time [facility] IntraOp General Case Branch Controller 1 Case Information OR OR 03 [facility] Case Level 1 Room Verified Yes Wound Class II - Clean-Contaminated Specialty SN General Anesthesia Type General ASA Class 2 Diagnosis Preop Diagnosis symptomatic cholelithiasis Postop Same As Preop Yes Postop Diagnosis symptomatic cholelithiasis Last Modified By: Mackenzie Freeman Rn 10/06/18 11:23:57 [facility] IntraOp General Case Data Audit 10/06/18 11:23:57 Manual Lathe Operator: [id number] Modifier: [id number] <+> 1 ASA Class <+> 1 Anesthesia Type <+> 1 Postop Same As Preop <+> 1 Preop Diagnosis <+> 1 Postop Diagnosis <+> 1 Room Verified [facility] IntraOp Intraoperative Assessment Entry 1 Handoff Method Other Valid History / Yes Physical in Chart Preoperative Yes Checklist Reviewed/Evaluated Allergies Reviewed Yes Patient is Latex No Sensitive Isolation Not applicable Precautions Noted Level of WDL Consciousness (WDL = Alert, Oriented to Person, Place, and Time) Skin Assessment Yes Verified Present Upon IVs Arrival to OR Last Modified By: Mackenzie Freeman Rn 10/06/18 11:09:33 [facility] IntraOp Intraoperative Equipment Entry 1 Type Monitoring Equipment Intraop Monitoring Electrocardiogram Three lead placement (ECG) Electrode Placement Blood Pressure Non-Invasive BP Device Source Antiembolic Devices Antiembolic Devices Sequential compression device, knee high Antiembolic Device Bilateral Location Scopes Photo/Video Documentation Photo No Video No Last Modified By: Mackenzie Freeman Rn 10/06/18 11:32:50 [facility] IntraOp Medication Admin Entry 1 Medication/Irrigant Anesthetic Cocktail-Emerson Route of LOCAL Administration Dose Dose 60 Unit of Measure ml Administered By GRAHAM TORRES MD Procedure Irrigation Last Modified By: Mackenzie Freeman Rn 10/06/18 11:33:03 [facility] IntraOp Patient Positioning Entry 1 Procedure Cholecystectomy Laparoscopic, Hernia Repair Internal Laparoscopic Body Position Supine Left Arm Position Secured on padded arm board Right Arm Position Secured on padded arm board Left Leg Position Uncrossed, parallel Right Leg Position Uncrossed, parallel Feet Uncrossed Yes Pressure Points Yes Checked Positioning Devices Foot Board, Safety Strap, Thighs, Arm Board, Safety Strap, Arm(s) Positioned By HELEN CLIFFORD RN, RASHAAD THAKUR V, JOLEEN, JESUS LILLY PA Position Verified Positioning Yes Verified by Anesthesia Positioning Yes Verified by Surgeon Last Modified By: Mackenzie Freeman Rn 10/06/18 12:10:58 [facility] IntraOp Patient Positioning Audit 10/06/18 12:10:58 Manual Lathe Operator: [id number] Modifier: [id number] 1 <*> Procedure Cholecystectomy Laparoscopic 10/06/18 12:10:42 Manual Lathe Operator: [id number] Modifier: [id number] 1 <*> Procedure Cholecystectomy Laparoscopic, Hernia Repair Internal Laparoscopic 10/06/18 11:48:02 Manual Lathe Operator: [id number] Modifier: [id number] 1 <*> Procedure Cholecystectomy Laparoscopic [facility] IntraOp Sign In Entry 1 Patient, Site, Yes Procedure Identified Surgical Consent Yes Confirmed Relevant Surgical Yes Documents Available Surgical Site N/A Marked by person performing procedure Anesthesia Machine Yes Check Completed Medication Checks Yes Completed Allergies Yes Airway Difficult Yes Airway/Aspiration Risk Difficult Yes Airway/Aspiration Intervention Equipment Available Blood Loss Risk Yes Blood Loss Yes Intervention Equipment Prepared and Ready Blood Identifiers Yes Verified Per Policy Hypothermia Risk Yes Warming Measures Yes Taken Last Modified By: Mackenzie Freeman Rn 10/06/18 11:34:49 [facility] Intra Op Sign Out Entry 1 RN Confirmation Surgical Yes Procedure(s) Identified Instrument, Sponge Yes and Sharps Counts Correct/Documented Equipment Problems N/A Documented Specimen Labeled Yes Correctly Urinary Catheter N/A Documented in IView Bojorquez Patient Yes Recovery Concerns Reviewed with Anesthesia Provider, Surgeon and RN Bojorquez Patient Yes Management Concerns Reviewed with Anesthesia Provider, Surgeon and RN Safety Checklist Yes Elements Complete? RN Sign Out HELEN CLIFFORD, TORIBIO Signature RN Sign Out 10/06/18 12:04:00 Signature Date/Time Plan of Care Outcome - [...] of Care Outcome - Counts OUTCOME STATEMENT: Goal met Absence of signs and symptoms of injury related to extraneous objects Last Modified By: Mackenzie Freeman Rn 10/06/18 12:04:12 [facility] Intra Op Sign Out Audit 10/06/18 12:04:12 Manual Lathe Operator: [id number] Modifier: [id number] <+> 1 RN Sign Out Signature Date/Time [facility] IntraOp Skin Prep Entry 1 Procedure Cholecystectomy Laparoscopic, Hernia Repair Internal Laparoscopic Prescribed Yes Pre-Surgical Prep Completed Prep Area ABDOMEN Intraop Prep Integumentary WDL Assessment WDL Prep Agents Chloraprep Prep by HELEN CLIFFORD RN Hair Removal Methods No hair removal performed Last Modified By: Mackenzie Freeman Rn 10/06/18 12:10:58 [facility] IntraOp Skin Prep Audit 10/06/18 12:10:58 Manual Lathe Operator: [id number] Modifier: [id number] 1 <*> Procedure Cholecystectomy Laparoscopic 10/06/18 12:10:42 Manual Lathe Operator: [id number] Modifier: [id number] 1 <*> Procedure Cholecystectomy Laparoscopic, Hernia Repair Internal Laparoscopic 10/06/18 11:48:02 Manual Lathe Operator: [id number] Modifier: [id number] 1 <*> Procedure Cholecystectomy Laparoscopic [facility] IntraOp Surgical Procedures Entry 1 Entry 2 Procedure Cholecystectomy Hernia Repair Internal Laparoscopic Laparoscopic Modifiers Additional LAPAROSCOPIC LAP INTERNAL HERNIA Procedure CHOLECYSTECTOMY REPAIR Description Primary Procedure Yes No Primary Surgeon GRAHAM TORRES MD STEINER, JOSHUA, MD Start 10/06/18 11:23:00 10/06/18 11:23:00 Stop 10/06/18 11:57:00 10/06/18 11:57:00 Physician States Cecum Reached Anesthesia Type General General Specialty SN General SN General Wound Class II - Clean-Contaminated I - Clean Last Modified By: Mackenzie Freeman Rn Placke, Lorraine M, Rn 10/06/18 12:10:49 10/06/18 12:10:49 [facility] IntraOp Surgical Procedures Audit 10/06/18 12:10:49 Manual Lathe Operator: [id number] Modifier: [id number] 1 <*> Procedure Cholecystectomy Laparoscopic 2 <*> Procedure Hernia Repair Internal Laparoscopic 2 <+> Primary Surgeon 10/06/18 12:04:40 Manual Lathe Operator: [id number] Modifier: [id number] 2 <*> Procedure Hernia Repair Internal Laparoscopic 10/06/18 12:04:24 Manual Lathe Operator: [id number] Modifier: [id number] 1 <*> Procedure Cholecystectomy Laparoscopic 2 <*> Procedure Hernia Repair Internal Laparoscopic 10/06/18 11:59:20 Manual Lathe Operator: [id number] Modifier: [id number] <+> 1 Stop <+> 2 Stop 10/06/18 11:50:13 Manual Lathe Operator: [id number] Modifier: [id number] <+> 2 Start 10/06/18 11:47:55 Manual Lathe Operator: [id number] Modifier: [id number] <+> 2 Procedure <+> 2 Primary Procedure <+> 2 Specialty <+> 2 Wound Class <+> 2 Anesthesia Type <+> 2 Additional Procedure Description 10/06/18 11:36:39 Manual Lathe Operator: [id number] Modifier: [id number] <+> 1 Primary Procedure <+> 1 Primary Surgeon <+> 1 Specialty <+> 1 Start <+> 1 Wound Class <+> 1 Anesthesia Type <+> 1 Additional Procedure Description [facility] IntraOp Temp Regulation Devices Entry 1 Temp Regulation Temperature Warm blankets Regulation Device Temperature Lower body Regulation Site Temperature HELEN CLIFFORD RN Regulation Device Applied by Last Modified By: Mackenzie Freeman Rn 10/06/18 11:37:22 [facility] IntraOp Time Out Entry 1 Procedure to be Cholecystectomy Performed Laparoscopic, Hernia Repair Internal Laparoscopic Time Out Time Out Pause Time 10/06/18 11:22:00 All activity Yes suspended (unless life threatening emergency) Team Verbally Correct patient Confirms Information identity, Correct side and site are marked, Consent form is present and accurate, Agreement on the procedure to be done, Correct patient position, Relevant images/results properly labeled/appropriately displayed, Confirm antibiotics have been administered, Confirm the skin prep has dried, Confirm prosthesis/implant/devic e is present, Performed in location of procedure after prepped/draped, Performed before each procedure if multiple procedures, Reconcile problems if responses among team members differ Antibiotic Yes Prophylaxis Administered Or In Progress Within the Last 60 Minutes Beta Gio N/A Administered Venous Yes Thromboembolism Prophylaxis Required Anticipated Critical Events Surgeon Critical or unexpected steps, Anticipated blood loss, Special equipment need, Special instrumentation need Anesthesia Provider Patient specific concerns Nursing Assures Sterility of instruments Essential Imaging N/A Labeled and Displayed Last Modified By: Mackenzie Freeman Rn 10/06/18 12:10:59 [facility] IntraOp Time Out Audit 10/06/18 12:10:59 Manual Lathe Operator: [id number] Modifier: [id number] 1 <*> Procedure to be Performed Cholecystectomy Laparoscopic 10/06/18 12:10:42 Manual Lathe Operator: [id number] Modifier: [id number] 1 <*> Procedure to be Performed Cholecystectomy Laparoscopic, Hernia Repair Internal Laparoscopic 10/06/18 11:48:03 Manual Lathe Operator: [id number] Modifier: [id number] 1 <*> Procedure to be Performed Cholecystectomy Laparoscopic Case Comments <None> Finalized By: Mackenzie Freeman Rn Document Signatures Signed By: Mackenzie Freeman Rn 10/06/18 12:11 documented in this encounter Plan of Treatment Upcoming Encounters Date Type Department Care Team (Late st Contact Info) Description 07/26/2025 7:30 AM EST Appointment [facility] [address] [facility] [address] [place] [address] documented as of this encounter Visit Diagnoses Not on filedocumented in this encounter Care Teams Linotype Machinist Apprentice Relationship Specialty Start Date End Date Jennifer Rowe DO [address] [place] [address] PCP - General Obstetrics and Gynecology 10/11/24 Carolann Marion, TOMI, CNM [address] [place] [address] Lineman Apprentice Certified Nurse Lineman Apprentice 10/11/24 documented as of this encounter
--- OUTSIDE RECORDS SUMMARY | 2025-07-22 10:01 | XMS_ITS | Encounter Summary ---
Author Organization [employer] ([place], [place], [place], [place], [place]) Address [address] [place] [address] Care Team Providers Care Rn Field Case Manager Name Role Phone Jennifer Rowe DO Primary Care Provider [phone] Carolann Marion APRN, CN Unavailable [phone] Encounter Details Date Type Department Care Team (Late st Contact Info) Description 10/01/2018 Transcribed Document [facility] [place] [address] ProviderMiguel MD [address] [place] [id number] Social History Tobacco Use Types Packs/Day Years Used Date Smoking Tobacco: Never Assessed Comments Unknown Sex and Gender Information Value Date Recorded Sex Assigned at Not on file Legal Sex Female 5:46 PM CDT Gender Identity Not on file Sexual Orientation Not on file documented as of this encounter Miscellaneous Notes * Cerner Conversion Note - Miguel ProviderMD - 10/01/2018 10:16 AM RAILWAY SWITCHMAN Nursing Discharge Summary Entered On: 10/01/2018 10:16 EST Performed On: 10/01/2018 10:16 EST by Ghislaine Chen Rn Discharge Documentation Discharge Date/Time : 10/01/2018 10:16 EST Patient Disposition, General : Discharge Discharge To : Home without planned follow-up Accompanied By, Discharge : Mother IV Discontinued : Yes Personal Belongings With Patient : Yes Discharge Instructions Reviewed With, Opportunity For Questions Given : Patient, Mother Teaching Method : Explanation Teaching Evaluation : Verbalizes understanding Ghislaine Chen, Rn - 10/01/2018 10:16 EST documented in this encounter Plan of Treatment Upcoming Encounters Date Type Department Care Team (Late st Contact Info) Description 07/26/2025 7:30 AM EST Appointment [facility] [address] [place] [address] documented as of this encounter Visit Diagnoses Not on filedocumented in this encounter Care Teams Rn Field Case Manager Relationship Specialty Start Date End Date Jennifer Rowe DO [address] [place] [address] PCP - General Obstetrics and Gynecology 10/11/24 Carolann Marion, UX UI DESIGNER, CNM [address] [place] [address] Winch Derrick Operator Certified Nurse Winch Derrick Operator 10/11/24 documented as of this encounter
--- OUTSIDE RECORDS SUMMARY | 2025-07-22 10:01 | XMS_ITS | Encounter Summary ---
Author Organization [employer] ([place], [place], [place], [place], [place]) Address [address] [place] [address] Care Team Providers Care Electrical Automation Engineer Name Role Phone Jennifer Rowe DO Primary Care Provider [phone] Carolann Marion APRN, CN Unavailable [phone] Encounter Details Date Type Department Care Team (Late st Contact Info) Description 10/01/2018 Transcribed Document [facility] [place] [address] [place] [address] ProviderMiguel MD [address] [place], [place] [id number] Social History Tobacco Use Types Packs/Day Years Used Date Smoking Tobacco: Never Assessed Comments Unknown Sex and Gender Information Value Date Recorded Sex Assigned at Not on file Legal Sex Female 5:46 PM CDT Gender Identity Not on file Sexual Orientation Not on file documented as of this encounter Miscellaneous Notes * Cerner Conversion Note - Miguel ProviderMD - 10/01/2018 9:35 AM VETERINARY PATHOLOGIST Height and Weight, Clinical Dosing Entered On: 10/01/2018 9:36 EST Performed On: 10/01/2018 9:35 EST by GUSTAVO MCNEILL RN Height and Weight, Clinical Dosing Height Source : Stated Height Entry Format : [place] Height, Feet : 5 ft(Converted to: 152 cm, 60 Inch) Height, Inches : 0 Inch(Converted to: 0 ft 0 Inch, 0.00 cm) Clinical Height : 152.4 cm Weight Source : Standing scale Weight Entry Format : [place] Clinical Dosing Weight : 78.69 kg Weight, Pounds : 173 lb Weight, Ounces : 2 oz Body Surface Area (BSA) : 1.76 m2 Body Mass Index : 33.9 kg/m2 (HI) [place] Body Weight : 45 kg GUSTAVO MCNEILL, RN - 10/01/2018 9:35 EST Electronically signed by [facility], [facility] Conversion Adjunct Faculty Mathematics Department Cerner at 12/29/2022 8:31 PM CDT documented in this encounter Plan of Treatment Upcoming Encounters Date Type Department Care Team (Late st Contact Info) Description 07/26/2025 7:30 AM EST Appointment [facility] [address] [facility] [address] [place] [address] documented as of this encounter Visit Diagnoses Not on filedocumented in this encounter Care Teams Electrical Automation Engineer Relationship Specialty Start Date End Date Jennifer Rowe DO [address] [place] [address] PCP - General Obstetrics and Gynecology 10/11/24 Carolann Marion APRN, CNEduard [address] [place] [address] Flash Ranging Crewmember Certified Nurse Flash Ranging Crewmember 10/11/24 documented as of this encounter
--- OUTSIDE RECORDS SUMMARY | 2025-07-22 10:01 | XMS_ITS | Encounter Summary ---
Author Organization [employer] ([place], [place], [place], [place], [place]) Address [address] [place] [address] Care Team Providers Care Marketing Liaison Name Role Phone Jennifer Rowe DO Primary Care Provider [phone] Reji Marion APRN, CN Unavailable [phone] Encounter Details Date Type Department Care Team (Late st Contact Info) Description 10/06/2018 Transcribed Document [facility] [place] [facility] [place] [address] ProviderMiguel MD [address] [place] [address] Social History Tobacco Use Types Packs/Day Years Used Date Smoking Tobacco: Never Assessed Comments Unknown Sex and Gender Information Value Date Recorded Sex Assigned at Not on file Legal Sex Female 5:46 PM CDT Gender Identity Not on file Sexual Orientation Not on file documented as of this encounter Miscellaneous Notes * Cerner Conversion Note - Historical ProviderMD - 10/06/2018 9:34 AM FINANCIAL FOUNDATIONS REPRESENTATIVE Pre Procedure Adult Entered On: 10/06/2018 9:41 EST Performed On: 10/06/2018 9:34 EST by VADIM CAMPBELL RN Height and Weight, Clinical Dosing Height Source : Stated Height Entry Format : [place] Height, Feet : 5 ft(Converted to: 152 cm, 60 Inch) Height, Inches : 0 Inch(Converted to: 0 ft 0 Inch, 0.00 cm) Clinical Height : 152.4 cm Weight Source : Standing scale Weight Entry Format : [place] Clinical Dosing Weight : 78.18 kg Weight, Pounds : 172 lb Body Surface Area (BSA) : 1.75 m2 Body Mass Index : 33.7 kg/m2 (HI) [place] Body Weight : 45 kg VADIM CAMPBELL RN - 10/06/2018 9:34 EST Health Histories Smoking Status : Never (less than 100 in lifetime; none in last 30 days) Smokeless Tobacco Status : Never VADIM CAMPBELL RN - 10/06/2018 9:34 EST Social History (As Of: 10/06/2018 09:41:43 EST) Tobacco: Smoking Status Never smoker. (Last [...] (Last Updated: 09/03/2017 09:35:58 EST by GEOVANY DAVIDSON RN) Employment/School: Employed (Last Updated: 09/05/2014 04:11:22 EST by CARLITA LOPEZ MD) Infectious Disease History Infectious Disease History : Chicken pox/Shingles, Influenza Isolation Needed : Standard Fever/Chills Last 48 Hours : Yes Experiencing Infectious Disease Symptoms : No symptoms Travel To Regions with Travel Advisories : No Travel Outside [place] Within Last 30 Days : No Contact With Traveler to Advisory Region : No Tuberculosis Symptoms : None VADIM CAMPBELL RN - 10/06/2018 9:34 EST Anesthesia/Transfusion History Family History of Anesthesia Reaction : No prior transfusion(s) Transfusion History : Prior anesthesia reaction Type of Anesthesia Reaction : Other: Wakes up Crying Family History of Anesthesia Reaction : None VADIM CAMPBELL RN - 10/06/2018 9:34 EST Functional Assessment Living Situation : Home Patient Lives With : Significant other(s) Current Home Treatments : None VADIM CAMPBELL RN - 10/06/2018 9:34 EST Psychosocial History Chronic/Terminal Illness w/Freq Visits : No Do You Have a History of the Following? : Patient denies history Currently in Unsafe Situation : No Tried to Harm Yourself in the Past? : No Thoughts of Harming/Killing Yourself : No VADIM CAMPBELL RN - 10/06/2018 9:34 EST Advance Directive Patient has Advance Directive *Q : No, patient refuses Advance Directive information VADIM CAMPBELL RN - 10/06/2018 9:34 EST General Info Preferred Name : Colleen Support Person/Patient Kiln Maintenance : Yes Want Family/Rep/Phys Notified of Admit : No Emergency Contact #1 : reji kim Emergency Contact #1 Emergency Contact #1 Relationship : mom Emergency Contact #2 : tamiko garcia Emergency Contact #2 Phone Number : [phone] Emergency Contact #2 Relationship : boyjose carlos Primary Language : Uzbek Preferred Communication Mode : Verbal Communication Barrier : None VADIM CAMPBELL RN - 10/06/2018 9:34 EST Sleep Apnea Risk Assmt Hx of [...] Circumference Greater Than 40 cm : No VADIM CAMPBELL RN - 10/06/2018 9:34 EST Jared Scale Jared Sensory Perception : No impairment Jared Moisture : Rarely moist Jared Activity : Walks frequently Jared Mobility : No limitation Jared Nutrition : Probably inadequate Jared Friction and Shear : No apparent problem Jared Score : 21 VADIM CAMPBELL RN - 10/06/2018 9:34 EST Oxygen Therapy Oxygen Therapy Mode : Room air VADIM CAMPBELL RN - 10/06/2018 9:34 EST Pain Assessment Pain Assessment : Initial assessment Pain Scale Goal : 3 Pain Scale Used : 0-10 Scale Location : Abdominal VADIM CAMPBELL RN - 10/06/2018 9:34 EST Fall Risk Scales ABCs Fall Injury Risk Identification : None OGDEN Hx Falls Immediate/Within 3 Months : No [place] Secondary Diagnosis : Yes OGDEN Use of Ambulatory Aid : None OGDEN IV Therapy or IV Access : No [place] Gait/Transferring : Normal, bedrest, immobile [place] Mental Status : Oriented to own ability [place] Fall Risk Score : 15 OGDEN Fall Scale Risk Level : 0-24 Low Risk [place] Fall Interventions : Adequate lighting, Assistive devices within reach, Bed in low position, Frequent orientation to call device, Non-slip footwear, Reinforced to call for assistance before getting out of bed VADIM CAMPBELL RN - 10/06/2018 9:34 EST Education Topics, Day of Surgery DayofSurgery Education Grid Anesthesia/Sedation : Verbalizes understanding Fall Risks : Verbalizes understanding IV's : Verbalizes understanding Medication Instructions : Verbalizes understanding Pain Management : Verbalizes understanding Plan of Care : Verbalizes understanding Responsible Adult : Verbalizes understanding VADIM CAMPBELL RN - 10/06/2018 9:34 EST Valuables and Belongings Valuables and Belongings : Clothing, Personal items Clothing : Common streetwear Clothing Disposition : With family, With patient Personal Items : Cell phone, Credit cards, Purse, Wallet Personal Items Disposition : With family, With patient VADIM CAMPBELL RN - 10/06/2018 9:34 EST Pain Scale Intensity : 2 VADIM CAMPBELL RN - 10/06/2018 9:34 EST Image 4 - Images currently included in the form version of this document have not been included in the text rendition version of the form. documented in this encounter Plan of Treatment Upcoming Encounters Date Type Department Care Team (Late st Contact Info) Description 07/26/2025 7:30 AM EST Appointment [address] [address] documented as of this encounter Visit Diagnoses Not on filedocumented in this encounter Care Teams Marketing Liaison Relationship Specialty Start Date End Date Jennifer Rowe DO [address] [place] [address] PCP - General Obstetrics and Gynecology 10/11/24 Reji Marion, TOMI, CNM [address] [place] [address] Research Assistant Professor Certified Nurse Research Assistant Professor 10/11/24 documented as of this encounter
== END 2025-07-20 23:59 ==
LOC: LAB.DROPOF 07-22 09:57
PROVIDERS: Visit Provider Student in an Organized Health Care Education/Training Program
DX: R50.9 Fever, unspecified (principal)
CPT/HCPCS: 87631

== ENCOUNTER 2025-07-29 17:06 | Emergency (ER) | payer MEDICAID, SELFPAY ==
--- OUTSIDE RECORDS SUMMARY | 2025-07-08 09:00 | XMS_ITS | Encounter Summary ---
Author Organization [facility] ([place], [place], [place], [place], [place]) Address [address] [place] [address] Care Team Providers Care Elastic Attacher Zigzag Name Role Phone Jennifer Rowe DO Primary Care Provider [phone] Carolann Marion APRN, CN Unavailable [phone] Reason for Referral * Ultrasound (Routine) - Closed Specialty Diagnoses / Procedures Referred By Sidra t Referred To Contact Radiology Diagnoses Abnormal mammogram Procedures US BREAST LEFT LIMITED Shanti Buck MD [address] [place] [address] Phone: tel: fax: [address] [address] Phone: tel: fax: Referral ID Status Reason Start Date Expiration Date Visits Re quested Visits Authorized [id number] Closed 06/28/2025 06/28/2026 1 1 Reason for Visit * Ultrasound (Routine) - Closed Specialty Diagnoses / Procedures Referred By Contjean-paul t Referred To Contact Radiology Diagnoses Abnormal mammogram Procedures [place] [address] [place] [address] Phone: tel: fax: [address] [address] [place] [address] Phone: tel: fax: Referral ID Status Reason Start Date Expiration Date Visits Re quested Visits Authorized [id number] Closed 06/28/2025 06/28/2026 1 1 Encounter Details Date Type Department Care Team (Latest Contact Info) Description 07/08/2025 10:00 AM EDT - 07/08/2025 10:59 PM EDT Hospital Encounter [facility] Breast Care [address] [place] [address] Jennifer Rowe, [address] [place] [address] Abnormal mammogram Discharge Disposition: Home or Self Care Social History Tobacco Use Types Packs/Day Years Used Date Smoking Tobacco: Never Smokeless Tobacco: Never Alcohol Use Standard Drinks/Week Comments Not Currently 0 (1 standard drink = 0.6 oz pur e alcohol) Overall Financial Resource Strain (CARDIA) Answe r Date Recorded How hard is it for you to pa y for the very basics like food, housing, medical care, and heating? Not very hard 10/01/2023 Hunger Vital Sign Answer Date Recorded Within the past 12 months, y ou worried that your food would run out before you got the money to buy more. Never true 10/01/19 24 Within the past 12 months, t he food you bought just didn't last and you didn't have money to get more. Never true 10/01/2023 PRAPARE - Transportation Answer Date Re corded In the past 12 months, has l ack of transportation kept you from medical appointments or from getting medications? No 09/16 In the past 12 months, has l ack of transportation kept you from meetings, work, or from getting things needed for daily living? No 10/07/2023 Utilities Answer Date Recorded In the past 12 months, has t he electric, gas, oil, or water company threatened to shut off services in your home? No 03/09/2024 Food Insecurity Answer Date Recorded Within the past 12 months, y ou worried that your food would run out before you got money to buy more. Never true 03/09/2024 Within the past 12 months, t he food you bought just didn't last and you didn't have money to get more. Never true 03/09/2024 Transportation Needs Answer Date Record ed In the past 12 months, has l ack of reliable transportation kept you from medical appointments, meetings, work or from getting things needed for daily living? No 03/09/2024 Financial Resource Strain Answer Date R ecorded How hard is it for you to pa y for the very basics like food, housing, medical care, and heating? Would you say it is: Somewhat hard 03/09/2024 Employment Answer Date Recorded Do you want help finding or keeping work or a job? I do not need or want help 03/09/2024 Family and Community Support Answer Eyad e Recorded If for any reason you need h elp with day-to-day activities such as bathing, preparing meals, shopping, managing finances, etc., do you get the help you need? I don't need any help 03/09/2024 Feeling Lonely or Isolated 0 03/09 Educational Attainment Answer Date Leonard rded Do you speak a language other than Filipino at [facility]? No 03/09/2024 Do you want help with school or training? For example, starting or completing job training or getting a high school diploma, GED or equivalent. No 03/09/2024 Physical Activity Answer Date Recorded Number of minutes of exercise per week 10 03/09/2024 Substance Use Answer Date Recorded How many times in the past y ear have you used prescription drugs for non-medical reasons? Never 03/09/2024 How many times in the past year have you used [place] legal drugs? 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 * Mood and Anxiety Disorder (Filipino) documented in this encounter Medications at Time of Discharge drospirenone-estetro l (Nextstellis) 3 mg- 14.2 mg (28) tab Take 1 tablet by mouth daily. 84 tablet 3 06/11/2025 ondansetron (ZOFRAN) 4 MG tablet Take 1 tablet (4 mg total) by mouth 2 (two) times daily as needed. 30 tablet 01/08/2024 ondansetron (ZOFRAN-ODT) 8 MG disintegrating tabletIndications:na use and vomiting s/p gastric bypass surgery Take 1 tablet (8 mg total) by mouth every 8 (eight) hours as needed for nausea or vomiting. 30 tablet 2 06/12/2025 documented as of this encounter Plan of Treatment Not on file documented as of this encounter Procedures Procedure Name Priority Date/Time Associated Diagnosis Comments US BREAST LEFT LIMITED Routine 07/08/2025 11:23 AM EDT Abnormal mammogram documented in this encounter Results * (ABNORMAL) US BREAST LEFT LIMITED (07/08/2025 11:23 AM EDT) Anatomical Region Laterality Modality Breast Left Ultrasound 07/08/2025 11:2 4 AM EDT Impressions 07/08/2025 11:30 AM EDT FINAL IMPRESSION: ACR BI-RADS 4A: Low suspicion for malignancy RECOMMENDATION: Ultrasound-guided biopsy The findings and recommendations were discussed with the patient and a report in lay language was given to the patient. This report will serve as an order for recommended imaging studies/procedures. Narrative 07/08/2025 11:30 AM EDT PROCEDURE: Left Breast Ultrasound, using 18 MHz transducer. REASON FOR EXAM: Isoechoic 8:00 left breast mass on ultrasound 12/29/2024 for 6 month follow-up FAMILY HISTORY: Strong family history of breast cancer COMPARISON STUDY: The exam 12/29/2024 FINDINGS: The oval isoechoic mass previously noted at the 8:00 position measures slightly increased in size, from a maximum of 0.8 cm to a maximum of 1.1 cm. The overall shape of the mass is the same and measurement calculations maybe technologist dependent, however given the perceived slight increase in size in the strong family history of breast cancer ultrasound-guided biopsy will be scheduled. Procedure Note Shanti Buck MD - 07/08/2025 PROCEDURE: Left Breast Ultrasound, using 18 MHz transducer. REASON FOR EXAM: Isoechoic 8:00 left breast mass on ultrasound 12/29/2024 for 6 month follow-up FAMILY HISTORY: Strong family history of breast cancer COMPARISON STUDY: The exam 12/29/2024 FINDINGS: The oval isoechoic mass previously noted at the 8:00 position measures slightly increased in size, from a maximum of 0.8 cm to a maximum of 1.1 cm. The overall shape of the mass is the same and measurement calculations maybe technologist dependent, however given the perceived slight increase in size in the strong family history of breast cancer ultrasound-guided biopsy will be scheduled. IMPRESSION: FINAL IMPRESSION: ACR BI-RADS 4A: Low suspicion for malignancy RECOMMENDATION: Ultrasound-guided biopsy The findings and recommendations were discussed with the patient and a report in lay language was given to the patient. This report will serve as an order for recommended imaging studies/procedures. us Shanti Buck MD IMG US ORDERABLES Final Result documented in this encounter Visit Diagnoses Diagnosis Abnormal mammogram Abnormal mammogram, unspecified documented in this encounter Care Teams Elastic Attacher Zigzag Relationship Specialty Start Date End Date Jennifer Rowe DO [address] [place] [address] PCP - General Obstetrics and Gynecology 10/11/24 Carolann Marion APRN, CHRISTOPHER [address] [place] [address] Deposit Clerk Certified Nurse Deposit Clerk 10/11/24 documented as of this encounter
[2025-07-29 17:13] VITALS: BP 150/101; PULSE 106; RESP 18; TEMP 36.8; O2SAT 100; BMI 25.7
--- NOTE | 2025-07-29 17:23 | CT_ITS ---
PROCEDURE INFORMATION: Exam: CT Neck With Contrast Exam date and time: 07/29/2025 6:15 PM Age: 35 years old Clinical indication: Other: Right neck/parotid edema TECHNIQUE: Imaging protocol: Computed tomography of the neck with contrast. Radiation optimization: All CT scans at this facility use at least one of these dose optimization techniques: automated exposure control; mA and/or kV adjustment per patient size (includes targeted exams where dose is matched to clinical indication); or iterative reconstruction. Contrast material: ISOVUE; Contrast volume: 75 ml; Contrast route: IV; COMPARISON: No relevant prior studies available. FINDINGS: Paranasal sinuses: Secretions in the right paranasal sinuses. Salivary glands: The left parotid gland is atrophied or absent. Pharynx: Unremarkable. No significant tonsillar enlargement. Larynx: Unremarkable. Epiglottis is normal. Thyroid: Thyroid nodules measure up to 4 mm. No follow-up imaging is warranted. Trachea: Visualized trachea is unremarkable. Lungs: Unremarkable as visualized. Lymph nodes: Mildly enlarged right retropharyngeal and posterior triangle lymph nodes are likely reactive. Bones/joints: Unremarkable. No acute fracture. Soft tissues: There is soft tissue edema around the right parotid gland. IMPRESSION: 1. There is soft tissue edema around the right parotid gland. Infectious versus inflammatory parotiditis would be most likely. 2. Secretions in the right paranasal sinuses. Please exclude acute sinusitis and consider direct visualization to exclude an obstructing polyp. COMMENTS: Consistent with the [employer]'s Incidental Findings Committee white paper (J Am Yumiko Radiol 2015): In patients aged 35 years and older with an incidental thyroid nodule equal to or greater than 1.[address], MRI or extrathyroidal US, further evaluation with dedicated thyroid US is recommended for patients with normal life expectancy and without comorbidities. For smaller nodules without suspicious features, no further evaluation or follow up is recommended.
--- OUTSIDE RECORDS SUMMARY | 2025-07-29 17:24 | XMS_ITS | Encounter Summary ---
Author Organization [employer] ([place], [place], [place], [place], [place]) Address [address] [place] [address] Care Team Providers Care All Terrain Vehicle Racer Name Role Phone Jennifer Rowe DO Primary Care Provider [phone] Carolann Marion APRN, GERTRUDEM Unavailable [phone] Encounter Details Date Type Department Care Team [...] Do you speak a language other than [facility] [place] [facility]? No 03/09/2024 Do you want help with [...] on file documented as of this encounter Visit Diagnoses Not on filedocumented in this encounter Care Teams All Terrain Vehicle Racer Relationship Specialty Start Date End Date Jennifre Rowe DO [address] [place] [address] PCP - General Obstetrics and Gynecology 10/11/24 Carolann Marion, TOMI, CNM [address] [place] [address] Stem Shaper Certified Nurse Stem Shaper 10/11/24 documented as of this encounter
--- OUTSIDE RECORDS SUMMARY | 2025-07-29 17:25 | XMS_ITS | Encounter Summary ---
Author Organization [employer] ([place], [place], [place], [place], [place]) Address [address] [place] [address] Care Team Providers Care Health Information Provider Name Role Phone Rowe, Amy Primary Care Provider [phone] Carolann Marion APRN, CN Unavailable [phone] Encounter Details Date Type Department Care Team (Late st Contact Info) Description 11/18/2019 Transcribed Document [facility] [place] Family Medicine [address] [place] [address] ProviderMiguel MD [address] [place] [address] [id number] Social History Tobacco Use Types Packs/Day Years Used Date Smoking Tobacco: Never Assessed Comments Unknown Sex and Gender Information Value Date Recorded Sex Assigned at Not on file Legal Sex Female 5:46 PM CDT Gender Identity Not on file Sexual Orientation Not on file documented as of this encounter Miscellaneous Notes * Cerner Conversion Note - Miguel ProviderMD - 11/18/2019 4:00 PM ICE SCRAPER Spiritual Care Short Form Entered On: 11/18/2019 17:46 EST Performed On: 11/18/2019 16:00 EST by YUN TAYLOR Chaplain-Non Cert General Information, Spiritual Care Spiritual Care Referred by : Finishing Trimmer initiated Reason for Visit : Initial Ministry [...] : No Concern Spiritual Framework : Unknown Bahai Preference : Congregational ([employer]) YUN TAYLOR, Finishing Trimmer-Non Cert - 11/18/2019 17:44 EST Electronically signed by [facility], [facility] Conversion Electrical Engineering Professor Cerner at 12/29/2022 8:29 PM CDT documented in this encounter Plan of Treatment Not on file documented as of this encounter Visit Diagnoses Not on filedocumented in this encounter Care Teams Health Information Provider Relationship Specialty Start Date End Date Jennifer Rowe DO [address] [place] [address] PCP - General Obstetrics and Gynecology 10/11/24 Carolann Marion, TIMING MACHINE OPERATOR, CNM [address] [place] [address] Engine Testing Supervisor Certified Nurse Engine Testing Supervisor 10/11/24 documented as of this encounter
--- OUTSIDE RECORDS SUMMARY | 2025-07-29 17:25 | XMS_ITS | Encounter Summary ---
Author Organization [employer] ([place], [place], [place], [place], [place]) Address [address] [place] [address] Care Team Providers Care Cnc Mechanic Name Role Phone RoweJennifer devi DO Primary Care Provider [phone] Carolann Marion APRN, CN Unavailable [phone] Encounter Details Date Type Department Care Team (Late st Contact Info) Description 11/18/2019 Transcribed Document [facility] Family Medicine [facility] [place] [address] ProviderMiguel MD [address] [place] [id number] Social History Tobacco Use Types Packs/Day Years Used Date Smoking Tobacco: Never Assessed Comments Unknown Sex and Gender Information Value Date Recorded Sex Assigned at Not on file Legal Sex Female 5:46 PM CDT Gender Identity Not on file Sexual Orientation Not on file documented as of this encounter Miscellaneous Notes * Cerner Conversion Note - Miguel ProviderMD - 11/18/2019 9:40 AM FILM PRINTER Patient: LOVELY HARGROVE Age: 29 Years Sex: [...] scheduled for 6 week visit: Yes(_)/No(_) Data [place] (X) NICU (_) Medications Inpatient aluminum hydroxide/magnesium hydroxide/simethicone 200 mg-200 mg-20 mg/5 mL oral suspension, 30 mL, Oral, Q4H, PRN Ambien, 5 mg= 1 Tab, Oral, At Bedtime, PRN Colace, 100 mg= 1 Cap, Oral, TID Cytotec, 1000 mcg= 5 Tab, Rectal, 1-Time, PRN Dermoplast 20% topical spray, 1 [place], Topical, Q4H, PRN Dextrose 5% in Lactated [...] on filedocumented in this encounter Care Teams Cnc Mechanic Relationship Specialty Start Date End Date Jennifer Rowe DO [address] [place] [address] PCP - General Obstetrics and Gynecology 10/11/24 Carolann Marion, TOMI, CNM [address] [address] Lap Regulator Certified Nurse Lap Regulator 10/11/24 documented as of this encounter
--- OUTSIDE RECORDS SUMMARY | 2025-07-29 17:26 | XMS_ITS | Encounter Summary ---
Author Organization [employer] ([place], [place], [place], [place], [place]) Address [address] [place] [address] Care Team Providers Care Gift Wrapper Name Role Phone Jennifer Rowe DO Primary Care Provider [phone] Carolann Marion APRN, CN Unavailable [phone] Encounter Details Date Type Department Care Team (Late st Contact Info) Description 11/18/2019 Transcribed Document [facility] [place] Family Medicine [facility] [place] [address] ProviderMiguel MD [address] [place] [address] Social History Tobacco Use Types Packs/Day Years Used Date Smoking Tobacco: Never Assessed Comments Unknown Sex and Gender Information Value Date Recorded Sex Assigned at Not on file Legal Sex Female 5:46 PM CDT Gender Identity Not on file Sexual Orientation Not on file documented as of this encounter Miscellaneous Notes * Cerner Conversion Note - Miguel ProviderMD - 11/18/2019 6:00 AM PRESIDENT AND CHIEF EXECUTIVE OFFICER Pain Assessment Entered On: 11/18/2019 5:29 EST Performed On: 11/18/2019 6:28 EST by CHAIM ELIAS RN Intervention Information: ibuprofen Performed by CHAIM ELIAS RN on 11/18/2019 05:28:00 EST ibuprofen,600mg Oral Pain Assessment Pain Assessment : Follow-up assessment Pain Improved by Intervention : Yes CHAIM ELIAS RN - 11/18/2019 5:28 EST Electronically signed by [facility] Conversion Snath Handle Assembler Cerner at 12/29/2022 8:34 PM CDT documented in this encounter Plan of Treatment Not on file documented as of this encounter Visit Diagnoses Not on filedocumented in this encounter Care Teams Gift Wrapper Relationship Specialty Start Date End Date Jennifer Rowe DO [address] [place] [address] PCP - General Obstetrics and Gynecology 10/11/24 Carolann Marion, TOMI, CNM [address] [place] [address] Veterinary Medicine Doctor Certified Nurse Veterinary Medicine Doctor 10/11/24 documented as of this encounter
--- OUTSIDE RECORDS SUMMARY | 2025-07-29 17:26 | XMS_ITS | Encounter Summary ---
Author Organization [employer] ([place], [place], [place], [place], [place]) Address [address] [place] [address] Care Team Providers Care Journalism Professor Name Role Phone Rowe, Amy Primary Care Provider [phone] Carolann Marion APRN, CN Unavailable [phone] Encounter Details Date Type Department Care Team (Late st Contact Info) Description 11/17/2019 Transcribed Document [facility] [place] [facility] [place] [address] ProviderMiguel MD [address] [place] [id number] Social History Tobacco Use Types Packs/Day Years Used Date Smoking Tobacco: Never Assessed Comments Unknown Sex and Gender Information Value Date Recorded Sex Assigned at Not on file Legal Sex Female 5:46 PM CDT Gender Identity Not on file Sexual Orientation Not on file documented as of this encounter Miscellaneous Notes * Cerner Conversion Note - Miguel ProviderMD - 11/17/2019 9:45 AM NET MAKER Patient: LOVELY HARGROVE Age: 29 Years [...] for 6 week visit: Yes(_)/No(_) Infant Data (X) NICU (_) Medications Inpatient aluminum hydroxide/magnesium hydroxide/simethicone 200 mg-200 mg-20 mg/5 mL oral suspension, 30 mL, Oral, Q4H, PRN Ambien, 5 mg= 1 Tab, Oral, At Bedtime, PRN Colace, 100 mg= 1 Cap, Oral, TID Cytotec, 1000 mcg= 5 Tab, Rectal, 1-Time, PRN Dermoplast 20% topical spray, 1 [place], Topical, Q4H, PRN Dextrose 5% in Lactated [...] / L 29.9 \ Electronically signed by [facility], [facility] Conversion Forklift Supervisor Cerner at 12/29/2022 8:18 PM CDT documented in this encounter Plan of Treatment Not on file documented as of this encounter Visit Diagnoses Not on filedocumented in this encounter Care Teams Journalism Professor Relationship Specialty Start Date End Date Jennifer Rowe DO [address] [place] [address] PCP - General Obstetrics and Gynecology 10/11/24 Carolann Marion, TOMI, CNM [address] [place] [address] Pathology Tech Certified Nurse Pathology Tech 10/11/24 documented as of this encounter
--- OUTSIDE RECORDS SUMMARY | 2025-07-29 17:26 | XMS_ITS | Encounter Summary ---
Author Organization [employer] ([place], [place], [place], [place], [place]) Address [address] [place] [address] Care Team Providers Care Bass Mechanism Maker Name Role Phone Jennifer Rowe DO Primary Care Provider [phone] Carolann Marion APRN, CN Unavailable [phone] Encounter Details Date Type Department Care Team (Late st Contact Info) Description 11/17/2019 Transcribed Document [facility] [place] Family [place] [facility] [place] [address] ProviderMiguel MD [address] [place] [address] Social History Tobacco Use Types Packs/Day Years Used Date Smoking Tobacco: Never Assessed Comments Unknown Sex and Gender Information Value Date Recorded Sex Assigned at Not on file Legal Sex Female 5:46 PM CDT Gender Identity Not on file Sexual Orientation Not on file documented as of this encounter Miscellaneous Notes * Cerner Conversion Note - Miguel ProviderMD - 11/17/2019 6:00 PM SALVAGE DIVER Pain Assessment Entered On: 11/17/2019 19:40 EST Performed On: 11/17/2019 18:20 EST by CHAIM ELIAS RN Intervention Information: ibuprofen Performed by GUSTAVO BEGUM RN on 11/17/2019 17:20:00 EST ibuprofen,600mg Oral Pain Assessment Pain Assessment : Follow-up assessment Pain Improved by Intervention : Yes CHAIM ELIAS RN - 11/17/2019 19:40 EST Electronically signed by Damir [facility] Conversion Sales Promotion Director Cerner at 12/29/2022 8:21 PM CDT documented in this encounter Plan of Treatment Not on file documented as of this encounter Visit Diagnoses Not on filedocumented in this encounter Care Teams Bass Mechanism Maker Relationship Specialty Start Date End Date Jennifer Rowe DO [address] [place] [address] PCP - General Obstetrics and Gynecology 10/11/24 Carolann Marion, TOMI, CNM [address] [place] [phone] Onsite Health Coach Certified Nurse Onsite Health Coach 10/11/24 documented as of this encounter
--- OUTSIDE RECORDS SUMMARY | 2025-07-29 17:27 | XMS_ITS | Encounter Summary ---
Author Organization [employer] ([place], [place], [place], [place], [place]) Address [address] [place] [address] Care Team Providers Care Risk Assessment Analyst Name Role Phone Jennifer Rowe DO Primary Care Provider [phone] Carolann Marion APRN, CN Unavailable [phone] Encounter Details Date Type Department Care Team (Late st Contact Info) Description 11/18/2019 Transcribed Document [facility] [place] Family Medicine [facility] [place] [address] ProviderMiguel MD [address] [place] [address] Social History Tobacco Use Types Packs/Day Years Used Date Smoking Tobacco: Never Assessed Comments Unknown Sex and Gender Information Value Date Recorded Sex Assigned at Not on file Legal Sex Female 5:46 PM CDT Gender Identity Not on file Sexual Orientation Not on file documented as of this encounter Miscellaneous Notes * Cerner Conversion Note - Miguel ProviderMD - 11/18/2019 12:00 AM CARGO AND CONTAINER INSPECTOR Pain Assessment Entered On: 11/17/2019 23:27 EST Performed On: 11/18/2019 0:27 EST by CHAIM ELIAS RN Intervention Information: ibuprofen Performed by CHAIM ELIAS RN on 11/17/2019 23:27:00 EST ibuprofen,600mg Oral Pain Assessment Pain Assessment : Follow-up assessment Pain Improved by Intervention : Yes CHAIM ELIAS RN - 11/17/2019 23:27 EST Electronically signed by Damir [facility] Conversion Shot Core Drill Operator Helper Cerner at 12/29/2022 8:17 PM CDT documented in this encounter Plan of Treatment Not on file documented as of this encounter Visit Diagnoses Not on filedocumented in this encounter Care Teams Risk Assessment Analyst Relationship Specialty Start Date End Date Jennifer Rowe DO [address] [place] [address] PCP - General Obstetrics and Gynecology 10/11/24 Carolann Marion, TOMI, CNM [address] [place] [phone] Logistics Team Lead Certified Nurse Logistics Team Lead 10/11/24 documented as of this encounter
--- OUTSIDE RECORDS SUMMARY | 2025-07-29 17:27 | XMS_ITS | Encounter Summary ---
Author Organization [employer] ([place], [place], [place], [place], [place]) Address [address] [place] [address] Care Team Providers Care Lease Picker Name Role Phone Jennifer Rowe DO Primary Care Provider Carolann Marion APRN, CN Unavailable [phone] Encounter Details Date Type Department Care Team (Late st Contact Info) Description 11/17/2019 Transcribed Document [facility] [place] Family Medicine [address] [place] [address] ProviderMiguel MD [address] [place] [address] Social History Tobacco Use Types [...] - Miguel ProviderMD - 11/17/2019 7:40 PM GARNISHMENT SPECIALIST Ethnology Professor Details Entered On: 11/17/2019 19:40 EST Performed [...] 11/17/2019 19:40 EST Electronically signed by Damir [facility] Conversion Dental Technology Advisor Cerner at 12/29/2022 8:28 PM CDT documented in this encounter Plan of Treatment Not on file documented as of this encounter Visit Diagnoses Not on filedocumented in this encounter Care Teams Lease Picker Relationship Specialty Start Date End Date Jennifer Rowe DO [address] [place] [address] PCP - General Obstetrics and Gynecology 10/11/24 Carolann Marion, GREENHOUSE MANAGER, CNM [address] [place] [address] Body Painter Certified Nurse Body Painter 10/11/24 documented as of this encounter
--- OUTSIDE RECORDS SUMMARY | 2025-07-29 17:28 | XMS_ITS | Encounter Summary ---
Author Organization [employer] ([place], [place], [place], [place], [place]) Address [address] [place] [address] Care Team Providers Care Pathology Secretary Name Role Phone RoweJennifer devi DO Primary Care Provider [phone] Carolann Marion APRN, CN Unavailable [phone] Encounter Details Date Type Department Care Team (Late st Contact Info) Description 10/21/2018 Transcribed Document [facility] [place] [facility] [place] [address] Miguel Juarez MD [address] [place] [id number] Social History Tobacco Use Types Packs/Day Years Used Date Smoking Tobacco: Never Assessed Comments Unknown Sex and Gender Information Value Date Recorded Sex Assigned at Not on file Legal Sex Female 5:46 PM CDT Gender Identity Not on file Sexual Orientation Not on file documented as of this encounter Miscellaneous Notes * Cerner Conversion Note - Miguel Juarez MD - 10/21/2018 8:18 AM SALES DEPARTMENT CLERK DATE OF PROCEDURE: 10/01/2018 SURGEON: Eliu Norman [...] CC1: Eliu Norman M.D. Electronically signed by [facility], [facility] Conversion Special Tax Auditor Cerner at 12/29/2022 8:40 PM CDT documented in this encounter Plan of Treatment Not on file documented as of this encounter Visit Diagnoses Not on filedocumented in this encounter Care Teams Pathology Secretary Relationship Specialty Start Date End Date Jennifer Rowe DO [address] [place] [address] PCP - General Obstetrics and Gynecology 10/11/24 Carolann Marion, TOMI, CNM [address] [place] [address] Outboard Motor Mechanic Certified Nurse Outboard Motor Mechanic 10/11/24 documented as of this encounter
--- OUTSIDE RECORDS SUMMARY | 2025-07-29 17:28 | XMS_ITS | Encounter Summary ---
Author Organization [employer] ([place], [place], [place], [place], [place]) Address [address] [place] [address] Care Team Providers Care Wine Merchant Name Role Phone Jennifer Rowe DO Primary Care Provider [phone] Carolann Marion APRN, CN Unavailable [phone] Encounter Details Date Type Department Care Team (Late st Contact Info) Description 11/16/2019 Transcribed Document [facility] [place] [address] ProviderMiguel MD [address] [place] [address] Social History Tobacco Use Types Packs/Day Years Used Date Smoking Tobacco: Never Assessed Comments Unknown Sex and Gender Information Value Date Recorded Sex Assigned at Not on file Legal Sex Female 5:46 PM CDT Gender Identity Not on file Sexual Orientation Not on file documented as of this encounter Miscellaneous Notes * Cerner Conversion Note - Miguel ProviderMD - 11/16/2019 9:27 AM FORESTRY SUPPORT SPECIALIST Patient: LOVELY HARGROVE Age: 29 Years Sex: [...] go to Recovery in stable condition. The went to the nursery in stable condition. Antibiotics were given on-call to the operating room suite. Counts were correct x 3 post procedure. documented in this encounter Plan of Treatment Not on file documented as of this encounter Visit Diagnoses Not on filedocumented in this encounter Care Teams Wine Merchant Relationship Specialty Start Date End Date Jennifer Rowe DO [address] [address] PCP - General Obstetrics and Gynecology 10/11/24 Carolann Marion, TOMI, CNM [address] [place] [address] Associate Account Director Certified Nurse Associate Account Director 10/11/24 documented as of this encounter
--- OUTSIDE RECORDS SUMMARY | 2025-07-29 17:29 | XMS_ITS | Encounter Summary ---
Author Organization [employer] ([place], [place], [place], [place], [place]) Address [address] [place] [address] Care Team Providers Care Personal Computer Network Analyst Name Role Phone Jennifer Rowe DO Primary Care Provider [phone] Carolann Marion APRN, CN Unavailable [phone] Encounter Details Date Type Department Care Team (Late st Contact Info) Description 11/16/2019 Transcribed Document [facility] [place] [facility] [place] [address] ProviderMiguel MD [address] [place], [place] [phone] Social History Tobacco Use Types Packs/Day Years Used Date Smoking Tobacco: Never Assessed Comments Unknown Sex and Gender Information Value Date Recorded Sex Assigned at Not on file Legal Sex Female 5:46 PM CDT Gender Identity Not on file Sexual Orientation Not on file documented as of this encounter Miscellaneous Notes * Cerner Conversion Note - Miguel ProviderMD - 11/16/2019 10:51 AM BOOK SEWER UM Authorization Entered On: 11/16/2019 10:51 EST Performed On: 11/16/2019 10:51 EST by ROGERS CROSS RN-Utilization Review Primary Insurance Authorization Authorization and Policy Numbers : Insurance 1 Health [facility] Policy Number: [id number] Authorization Number: Insurance Primary Name : [employer] Policy Number: [id number] Authorization Status-Primary : No precert required Authorization Number-Primary : auto 2/4 Number of Days Authorized-Primary : 3 Day(s) Authorized Service Begin Date-Primary : 11/16/2019 EST Authorized Service End Date-Primary : 11/19/2019 EST Historical Authorization Comments-Primary : No Authorization Comments Found ROGERS CROSS RN-Utilization Review - 11/16/2019 10:51 EST Electronically signed by [facility], [facility] Conversion Taper/Finisher Cerner at 12/29/2022 8:31 PM CDT documented in this encounter Plan of Treatment Not on file documented as of this encounter Visit Diagnoses Not on filedocumented in this encounter Care Teams Personal Computer Network Analyst Relationship Specialty Start Date End Date Jennifer Rowe DO [address] [place] [address] PCP - General Obstetrics and Gynecology 10/11/24 Carolann Marion, CERAMICS TEST ENGINEER, CNM [address] [place] [address] Shearing Supervisor Certified Nurse Shearing Supervisor 10/11/24 documented as of this encounter
--- OUTSIDE RECORDS SUMMARY | 2025-07-29 17:29 | XMS_ITS | Encounter Summary ---
Author Organization [employer] ([place], [place], [place], [place], [place]) Address [address] [place] [address] Care Team Providers Care Nursery Nurse Name Role Phone Jnenifer Rowe DO Primary Care Provider [phone] Carolann Marion APRN, CN Unavailable [phone] Encounter Details Date Type Department Care Team (Late st Contact Info) Description 11/16/2019 Transcribed Document [facility] [place] [address] [place] [address] ProviderMiguel MD [address] [place] [address] Social History Tobacco Use Types Packs/Day Years Used Date Smoking Tobacco: Never Assessed Comments Unknown Sex and Gender Information Value Date Recorded Sex Assigned at Not on file Legal Sex Female 5:46 PM CDT Gender Identity Not on file Sexual Orientation Not on file documented as of this encounter Miscellaneous Notes * Cerner Conversion Note - Historical ProviderMD - 11/16/2019 1:37 AM FLIGHT DECK OFFICER Admission Data, OB Entered On: 11/16/2019 1:39 EST Performed On: 11/16/2019 1:37 EST by Ratna White RN Advance Directive Patient has Advance Directive *Q : No, patient refuses Advance Directive information Ratna White RN - 11/16/2019 1:37 EST Height and Weight Height Source : Measured Height Entry Format : [place] Height, Feet : 5 ft(Converted to: 152 cm, 60 Inch) Clinical Height : 152.4 cm Height, Inches : 0 Inch(Converted to: 0 ft 0 Inch, 0.00 cm) Weight Source : Standing scale Weight Entry Format : [place] Weight, Pounds : 185 lb Clinical Dosing Weight : 84.09 kg Body Surface Area (BSA) : 1.81 m2 Body Mass Index : 36.2 kg/m2 (HI) [place] Body Weight (IBW) : 45.16 kg Ratna [...] Ratna White RN - 11/16/2019 1:37 EST [place] Suicide Severity Rating Scale (C-SSRS) CSSRS Past Month Wish to be : No CSSRS Past Month Suicidal Thoughts : No CSSRS Lifetime Suicide Behavior : No Suicide Severity Rating Score : 0 Suicide Severity Rating : No Additional Care Required at this time Ratna White RN - 11/16/2019 1:37 EST Electronically signed by Damir [facility] Conversion Intervention Specialist Cerner at 12/29/2022 8:32 PM CDT documented in this encounter Plan of Treatment Not on file documented as of this encounter Visit Diagnoses Not on filedocumented in this encounter Care Teams Nursery Nurse Relationship Specialty Start Date End Date Jennifer Rowe DO [address] [place] [address] PCP - General Obstetrics and Gynecology 10/11/24 Carolann Marion, TOMI, CNM [address] [place] [address] Binder Cutter Certified Nurse Binder Cutter 10/11/24 documented as of this encounter
--- OUTSIDE RECORDS SUMMARY | 2025-07-29 17:30 | XMS_ITS | Encounter Summary ---
Author Organization [email or web address] ([place], [place], [place], [place], [place]) Address [address] [place] [address] Care Team Providers Care Civil Design Technician Name Role Phone Jennifer Rowe DO Primary Care Provider [phone] Carolann Marion APRN, GERTRUDE Unavailable [phone] Encounter Details Date Type Department Care Team (Late st Contact Info) Description 11/26/2019 Transcribed Document [facility] [place] Family [place] [address] ProviderMiguel MD [address] [place] [address] Social History Tobacco Use Types [...] indicated below: Significant Changes: Electronically signed by [facility], [facility] Conversion Electrical & Instrumentation Supervisor Cerner at 12/29/2022 8:17 PM CDT documented in this encounter Plan of Treatment Not on file documented as of this encounter Visit Diagnoses Not on filedocumented in this encounter Care Teams Civil Design Technician Relationship Specialty Start Date End Date Jennifer Rowe DO [address] [place] [address] PCP - General Obstetrics and Gynecology 10/11/24 Carolann Marion, PLY CUTTER, CNM [address] [place] [address] Biological Scientist Certified Nurse Biological Scientist 10/11/24 documented as of this encounter
--- OUTSIDE RECORDS SUMMARY | 2025-07-29 17:30 | XMS_ITS | Encounter Summary ---
Author Organization [employer] ([place], [place], [place], [place], [place]) Address [address] [place] [address] Care Team Providers Care Certified Surgical Technician Name Role Phone Jennifer Rowe DO Primary Care Provider [phone] Carolann Marion APRN, CN Unavailable [phone] Encounter Details Date Type Department Care Team (Late st Contact Info) Description 11/19/2019 Transcribed Document [facility] [place] [facility] [address] ProviderMiguel MD [address] [place] [address] Social History Tobacco Use Types Packs/Day Years Used Date Smoking Tobacco: Never Assessed Comments Unknown Sex and Gender Information Value Date Recorded Sex Assigned at Not on file Legal Sex Female 5:46 PM CDT Gender Identity Not on file Sexual Orientation Not on file documented as of this encounter Miscellaneous Notes * Cerner Conversion Note - Miguel ProviderMD - 11/19/2019 11:37 AM REIMBURSEMENT CONSULTANT Nursing Discharge Summary Entered On: 11/19/2019 11:40 [...] - 11/19/2019 11:37 EST Electronically signed by [facility], [facility] Conversion Field Hand Cerner at 12/29/2022 8:36 PM CDT documented in this encounter Plan of Treatment Not on file documented as of this encounter Visit Diagnoses Not on filedocumented in this encounter Care Teams Certified Surgical Technician Relationship Specialty Start Date End Date Jennifer Rowe DO [address] [place] [address] PCP - General Obstetrics and Gynecology 10/11/24 Carolann Marion, LOCOMOTIVE MECHANIC APPRENTICE, CNM [address] [place] [address] Jackerman Certified Nurse Jackerman 10/11/24 documented as of this encounter
--- OUTSIDE RECORDS SUMMARY | 2025-07-29 17:30 | XMS_ITS | Encounter Summary ---
Author Organization [employer] ([place], [place], [place], [place], [place]) Address [address] [place] [address] Care Team Providers Care Logistics Operations Director Name Role Phone Jennifer Rowe DO Primary Care Provider [phone] Carolann Marion APRN, CN Unavailable [phone] Encounter Details Date Type Department Care Team (Late st Contact Info) Description 11/19/2019 Transcribed Document [facility] [place] [facility] [place] [address] ProviderMiguel MD [address] [place] [id number] Social History Tobacco Use Types Packs/Day Years Used Date Smoking Tobacco: Never Assessed Comments Unknown Sex and Gender Information Value Date Recorded Sex Assigned at Not on file Legal Sex Female 5:46 PM CDT Gender Identity Not on file Sexual Orientation Not on file documented as of this encounter Miscellaneous Notes * Cerner Conversion Note - Miguel ProviderMD - 11/19/2019 10:01 AM TURBINE MEASUREMENTS ENGINEER Final Discharge Planning Entered On: 11/19/2019 10:01 EST Performed On: 11/19/2019 10:01 EST by MERLYN CURRY MOTOR VEHICLE FIELD REPRESENTATIVE-PAY STATION DEPARTMENT MANAGER Final Discharge Planning Discharge Arrangements : Patient Post-Acute Information Patient Name: LOVELY HARGROVE Gender: Female : [birth year] Age: 29 Years No Post-Acute Placement(s) Listed No Post-Acute Service(s) Listed No [place] Referral(s) Listed Discharge To Care Management : Home/Residential/Shelter or Self Care - MERLYN CURRY MOTOR VEHICLE FIELD REPRESENTATIVE-PAY STATION DEPARTMENT MANAGER - 11/19/2019 10:01 EST Electronically signed by Damir, [facility] Conversion Ingot Supervisor Cerner at 12/29/2022 8:25 PM CDT documented in this encounter Plan of Treatment Not on file documented as of this encounter Visit Diagnoses Not on filedocumented in this encounter Care Teams Logistics Operations Director Relationship Specialty Start Date End Date Jennifer Rowe DO [address] [place] [address] PCP - General Obstetrics and Gynecology 10/11/24 Carolann Marion, PLAYBACK OPERATOR, CNM [address] [place] [address] Hospital Insurance Clerk Certified Nurse Hospital Insurance Clerk 10/11/24 documented as of this encounter
--- OUTSIDE RECORDS SUMMARY | 2025-07-29 17:31 | XMS_ITS | Encounter Summary ---
Author Organization [employer] ([place], [place], [place], [place], [place]) Address [address] [place] [address] Care Team Providers Care Rotary Envelope Machine Operator Name Role Phone Jennifer Rowe DO Primary Care Provider [phone] Carolann Marion APRN, CNM Unavailable [phone] Encounter Details Date Type Department Care Team (Late st Contact Info) Description 11/19/2019 Transcribed Document [facility] [place] [facility] [place] [address] ProviderMiguel MD [address] [place] [address] Social History Tobacco Use Types Packs/Day [...] Miguel Juarez MD - 11/19/2019 10:25 AM SQUIRT MACHINE OPERATOR [address] [address] LOVELY HARGROVE :1990 Visit Time:11/16/2019 Your Visit Summary Your Care Team Admitting Physician - JENNIFER ROWE DO Attending Physician - JENNIFER ROWE DO Primary Care Physician - JIMENA DAS MD-[facility] Referring Physician - JESSIE, SELF REFERRED Your [...] When 11/29/2019 08:45 AM EDT Where: [address] [place] [address]- Medications What How Much When Instructions Next [...] and water are not available, use hand head of design. ? If you have a dressing, change [...] until your incision heals. Medicines ??? Take mrqi-pfu-qkssdyi and prescription medicines only as told by [...] 05/24/2003 Document Revised: 10/04/2017 Document Reviewed: 08/05/2016 Mediafly Interactive Patient Education ?? 2018 Mediafly Inc. Choosing to breastfeed is one of [...] to meet your baby???s needs compared to infant formula. ??? Breast [...] smacking lips, cooing, sighing, or squeaking. ??? Biav-zr-uhhtw movements and sucking on fingers or hands. [...] able to be present during feedings. Your cardiology clinical consultant can help you find a method [...] contact your health care provider or a cardiology clinical consultant. Overall health care recommendations while ??? [...] provider before taking any medicines. These include kmxh-htu-aekcwmh and prescription medicines as well as vitamins [...] Talk with your health care provider or cardiology clinical consultant if you have questions or you face problems as you breastfeed. This information is not intended to replace advice given to you by your health care provider. Make sure you discuss any questions you have with your health care provider. Document Released: 09/01/2006 Document Revised: 10/03/2017 Document Reviewed: 10/03/2017 Mediafly Interactive Patient Education ?? 2019 [employer]. acetaminophen and oxycodone (a SEET a MIN [...] may report side effects to FDA at 4-853-LOC-3331. What other drugs will affect acetaminophen and [...] affect acetaminophen and oxycodone, including prescription and tewu-obh-ojmvnca medicines, vitamins, and herbal products. Not all [...] to ensure that the information provided by Idc917. ('Multum') is accurate, up-to-date, and complete, but no guarantee is made to that effect. Drug information contained herein may be time sensitive. [employer] information has been compiled for use by healthcare practitioners and consumers in the [place] and therefore [employer] does not warrant that uses outside of the [place] are appropriate, unless specifically indicated otherwise. [employer]chelles drug information does not endorse drugs, diagnose patients or recommend therapy. [employer] - SHV drug information is an informational resource designed [...] effective or appropriate for any given patient. [employer] does not assume any responsibility for any aspect of healthcare administered with the aid of information Dem[employer] provides. The information contained herein is not intended to cover all possible uses, directions, precautions, warnings, drug interactions, allergic reactions, or adverse effects. If you have questions about the drugs you are taking, check with your doctor, nurse or pharmacist. Copyright 0389-2989 Idc917. Version: 18.02. Revision Date: 08/12/2018. ibuprofen (EYE bue PROE fen) Advil, Genpril, IBU, Midol IB, Motrin IB, Proprinal, Smart Sense Children's Ibuprofen What is the most important information I should know about ibuprofen? Ibuprofen can increase your risk of fatal heart attack or stroke, especially if you use it fci or take high doses, or if you [...] or stroke, especially if you use it termite treater helper or take high doses, or if you [...] may report side effects to FDA at 7-977-EQT-4261. What other drugs will affect ibuprofen? Ask [...] may interact with ibuprofen, including prescription and sljc-yxb-bcuktqs medicines, vitamins, and herbal products. Not all [...] to ensure that the information provided by Idc917. ('MultValveXchange') is accurate, up-to-date, and complete, but no guarantee is made to that effect. Drug information contained herein may be time sensitive. [employer] information has been compiled for use by healthcare practitioners and consumers in the [place] and therefore [employer] does not warrant that uses outside of the [place] are appropriate, unless specifically indicated otherwise. [employer]chelles drug information does not endorse drugs, diagnose patients or recommend therapy. [employer]chelles drug information is an informational resource designed [...] effective or appropriate for any given patient. [employer] does not assume any responsibility for any aspect of healthcare administered with the aid of information Dem[employer] provides. The information contained herein is not intended to cover all possible uses, directions, precautions, warnings, drug interactions, allergic reactions, or adverse effects. If you have questions about the drugs you are taking, check with your doctor, nurse or pharmacist. Copyright 4623-8516 Idc917. Version: 21.. Revision Date: 09/27/2019. Emergency Awareness [...] Assistance with quitting is available by contacting 2-276-DDZANOW. This is a free resource providing counseling, support, and referral. Or you may contact your personal physician. [employer] Suicide Prevention Lifeline: The National Suicide Prevention [...] range between ( 1.0 and 7.0 ) [place] #: 1.11 K/uL -- Normal range between ( 0.24 and 0.82 ) Eos #: 0.05 K/uL -- Normal range between ( 0.04 and 0.54 ) [place] %: 7.1 % -- Normal range between [...] was given the opportunity to ask questions. Patient/Hourly Sign Language Interpreter Name: Patient/Hourly Sign Language Interpreter Signature: Relationship to Patient: Clinician/Hospital Hourly Sign Language Interpreter Signature: Date: Electronically signed by Stefany Reich Conversion Used Building Materials Yard Worker Cerner at 12/29/2022 8:32 PM CDT documented in this encounter Plan of Treatment Not on file documented as of this encounter Visit Diagnoses Not on filedocumented in this encounter Care Teams Rotary Envelope Machine Operator Relationship Specialty Start Date End Date Jennifer Rowe DO [address] [place] [address] PCP - General Obstetrics and Gynecology 10/11/24 Carolann Marion APRN, CNM [address] [place] [address] Civil Service Clerk Certified Nurse Civil Service Clerk 10/11/24 documented as of this encounter
--- OUTSIDE RECORDS SUMMARY | 2025-07-29 17:31 | XMS_ITS | Encounter Summary ---
Author Organization [employer] ([place], [place], [place], [place], [place]) Address [address] [place] [address] Care Team Providers Care Carboy Filler Name Role Phone Rowe, Amy Primary Care Provider [phone] Carolann Marion APRN, CN Unavailable [phone] Encounter Details Date Type Department Care Team (Late st Contact Info) Description 11/19/2019 Transcribed Document [facility] [place] [facility] [place] [address] ProviderMiguel MD [address] [place] [id number] Social History Tobacco Use Types Packs/Day Years Used Date Smoking Tobacco: Never Assessed Comments Unknown Sex and Gender Information Value Date Recorded Sex Assigned at Not on file Legal Sex Female 5:46 PM CDT Gender Identity Not on file Sexual Orientation Not on file documented as of this encounter Miscellaneous Notes * Cerner Conversion Note - Miguel ProviderMD - 11/19/2019 9:40 AM DIRECTOR CAREER SERVICES Patient: LOVELY HARGROVE Age: 29 Years Sex: Female : 1990 Admit Date 11/16/2019 01:11 Discharge Date 11/19/2019 11:35 Primary Care Provider JIMENA DAS MD-[facility] Discharge Diagnosis Single live 11/17/2019 Z37.0 [...] Oral, TID Dermoplast 20% topical spray 1 [place], PRN, Topical, Q4H hydrocortisone-pramoxine 1%-1% rectal cream [...] on filedocumented in this encounter Care Teams Carboy Filler Relationship Specialty Start Date End Date Jennifer Rowe DO [address] [place] [address] PCP - General Obstetrics and Gynecology 10/11/24 Carolann Marion, TOMI, CNM [address] [place] [address] Sanforizing Machine Operator Certified Nurse Sanforizing Machine Operator 10/11/24 documented as of this encounter
--- OUTSIDE RECORDS SUMMARY | 2025-07-29 17:31 | XMS_ITS | Encounter Summary ---
Author Organization [employer] ([place], [place], [place], [place], [place]) Address [address] [place] [address] Care Team Providers Care Fairing Worker Name Role Phone Jennifer Rowe Primary Care Provider [phone] Carolann Marion APRN, CN Unavailable [phone] Encounter Details Date Type Department Care Team (Late st Contact Info) Description 10/01/2018 Transcribed Document [facility] [place] Medicine [facility] [place] [address] ProviderMiguel MD [address] [place] [address] Social History Tobacco Use Types Packs/Day Years Used Date Smoking Tobacco: Never Assessed Comments Unknown Sex and Gender Information Value Date Recorded Sex Assigned at Not on file Legal Sex Female 5:46 PM CDT Gender Identity Not on file Sexual Orientation Not on file documented as of this encounter Miscellaneous Notes * Cerner Conversion Note - Miguel ProviderMD - 10/01/2018 10:15 AM LIFE ENRICHMENT ASSISTANT [place] [address], [place] [address] Patient Copy Patient Information: Name: LOVELY HARGROVE Current Date: 10/01/2018 10:15:33 : 1990 Patient Address: [facility] [address] Patient Attending Physician: GRAHAM TORRES MD Primary Care Provider: JIMENA DAS MD-[facility] Primary Care Provider Discharge Diagnosis: Weight on Admission: 173 lb, 2 oz Comment: Follow-up Instructions: With: Address: When: [facility], [address] [facility], [address] [place], [place] [id number] Business (1) Bariatric Office - PHONE , [address], [address] [place], [place] [address] Business (1) Within As needed Comments: office [...] Assistance with quitting is available by contacting 1-195-MWEJ-NOW. This is a free resource providing counseling, [...] Be sure to sign up for the [facility] patient portal, which gives you 07/04 access to your medical information ??? including these discharge instructions ??? using your computer, smartphone, or tablet. Just go to [employer]UM to get started. Questions? Call . [facility] would like to thank you for allowing us to assist you with your healthcare needs. [place] Arce CHRISTINA G, (or malt liquors sales representative) have received the above patient education materials/instructions and have verbalized understanding: Patient Signature _ Date/Time Patient Student Services Dean Signature (if needed) Date/Time Clinician/Hospital Student Services Dean Signature (if needed) Date/Time Electronically signed by Damir, [facility] Conversion Voyage Management System Operator Cerner at 12/29/2022 8:36 PM CDT documented in this encounter Plan of Treatment Not on file documented as of this encounter Visit Diagnoses Not on filedocumented in this encounter Care Teams Fairing Worker Relationship Specialty Start Date End Date Jennifer Rowe DO [address] [place] [address] PCP - General Obstetrics and Gynecology 10/11/24 Carolann Marion, TOMI, CNM [address] [place] [address] Master Police Detective Certified Nurse Master Police Detective 10/11/24 documented as of this encounter
--- OUTSIDE RECORDS SUMMARY | 2025-07-29 17:31 | XMS_ITS | Encounter Summary ---
Author Organization [employer] ([place], [place], [place], [place], [place]) Address [address] [place] [address] Care Team Providers Care Tempering Machine Operator Name Role Phone RoweJennifer devi DO Primary Care Provider [phone] Carolann Marion APRN, CN Unavailable [phone] Encounter Details Date Type Department Care Team (Late st Contact Info) Description 11/19/2019 Transcribed Document [facility] [place] [facility] [place] [address] ProviderMiguel MD [address] [place] [phone] Social History Tobacco Use Types Packs/Day Years Used Date Smoking Tobacco: Never Assessed Comments Unknown Sex and Gender Information Value Date Recorded Sex Assigned at Not on file Legal Sex Female 5:46 PM CDT Gender Identity Not on file Sexual Orientation Not on file documented as of this encounter Miscellaneous Notes * Cerner Conversion Note - Miguel Juarez MD - 11/19/2019 10:00 AM PARIMUTUEL CASHIER Patient Education Materials Follows: Delivery, Care After [...] and water are not available, use hand waste specialist. ? If you have a dressing, change [...] until your incision heals. Medicines ??? Take jyno-qef-wpvtavx and prescription medicines only as told by [...] 05/24/2003 Document Revised: 10/04/2017 Document Reviewed: 08/05/2016 TeliApp Interactive Patient Education ? 2018 T[employer]App Inc. Choosing to breastfeed is one of [...] to meet your baby?s needs compared to formula. ??? Breast milk [...] smacking lips, cooing, sighing, or squeaking. ??? Fdwz-ck-gilov movements and sucking on fingers or hands. [...] able to be present during feedings. Your infrastructure consultant can help you find a method [...] contact your health care provider or a infrastructure consultant. Overall health care recommendations while ??? [...] provider before taking any medicines. These include cssd-xbd-wimedfk and prescription medicines as well as vitamins [...] Talk with your health care provider or infrastructure consultant if you have questions or you face problems as you breastfeed. This information is not intended to replace advice given to you by your health care provider. Make sure you discuss any questions you have with your health care provider. Document Released: 09/01/2006 Document Revised: 10/03/2017 Document Reviewed: 10/03/2017 Elsevier Interactive Patient Education ? 2019 T[employer]App Inc. documented in this encounter Plan of Treatment Not on file documented as of this encounter Visit Diagnoses Not on filedocumented in this encounter Care Teams Tempering Machine Operator Relationship Specialty Start Date End Date Jennifer Rowe DO [address] [place] [address] PCP - General Obstetrics and Gynecology 10/11/24 Carolann Marion, TOMI, CNM [address] [place] [phone] Chemical Checker Certified Nurse Chemical Checker 10/11/24 documented as of this encounter
--- OUTSIDE RECORDS SUMMARY | 2025-07-29 17:32 | XMS_ITS | Encounter Summary ---
Author Organization [employer] ([place], [place], [place], [place], [place]) Address [address] [place] [address] Care Team Providers Care Client Onboarding Analyst Name Role Phone Jennifer Rowe DO Primary Care Provider [phone] Carolann Marion APRN, CN Unavailable [phone] Encounter Details Date Type Department Care Team (Late st Contact Info) Description 10/01/2018 Transcribed Document [facility] [place] [address] ProviderMiguel MD [address] [place] [phone] Social History Tobacco Use Types Packs/Day Years Used Date Smoking Tobacco: Never Assessed Comments Unknown Sex and Gender Information Value Date Recorded Sex Assigned at Not on file Legal Sex Female 5:46 PM CDT Gender Identity Not on file Sexual Orientation Not on file documented as of this encounter Miscellaneous Notes * Cerner Conversion Note - Miguel ProviderMD - 10/01/2018 9:54 AM SQUIRREL MAN [facility] End[facility] IntraOp Summary Primary Physician: GRAHAM TORRES MD Finalized Date/Time: 10/01/18 10:16:03 Pt. Name: LOVELY HARGROVE.O.B./Sex: 1990 Female Med Rec #: [id number] Physician: GRAHAM TORRES MD Financial #: [id number] Pt. Type: O [place]/Bed[place] [facility] Admit/Disch: 10/01/18 09:18:00 - Institution: [facility] [place]o - Case Attendance Entry 1 Entry 2 Entry 3 Case Attendee GRAHAM TORRES MD REARDON, SHERRI L, REESE KAY Role Performed Surgeon/Proceduralist, Plastic Joint Maker, First Scrub, First First Time In 10/01/18 [...] Case Attendee TUSHAR HUNTLEY CRNA Role Performed FREIGHT BREAKER/Nurse Fender Mechanic Apprentice Time In 10/01/18 09:52:00 Time Out 10/01/18 09:58:00 Procedure Esophagogastroduodenosco py, Gastric Biopsy Other Attendee Superficial Wound Closed By: Smith Modified By: JING SHELLEY RN 10/01/18 10:07:47 [facility] [place] Endo - Case Attendance Audit 10/01/18 10:07:47 Senior Systems Engineer: QUINTEN Modifier: QUINTEN 1 <+> Time Out 1 <*> Procedure Esophagogastroduodenoscopy, Gastric Biopsy 2 <+> Time Out 2 <*> Procedure Esophagogastroduodenoscopy, Gastric Biopsy 3 <+> Time Out 3 <*> Procedure Esophagogastroduodenoscopy, Gastric Biopsy 4 <+> Time Out 4 <*> Procedure Esophagogastroduodenoscopy, Gastric Biopsy 10/01/18 10:00:15 Senior Systems Engineer: QUINTEN Modifier: DAREKSH 1 <*> Procedure Esophagogastroduodenoscopy 2 <*> Procedure Esophagogastroduodenoscopy 3 <*> Procedure Esophagogastroduodenoscopy 4 <*> Procedure Esophagogastroduodenoscopy 10/01/18 09:58:56 Senior Systems Engineer: MILLERSH Modifier: MILLERSH <+> 1 Procedure 2 [...] Endo - Case Times Audit 10/01/18 10:07:25 Senior Systems Engineer: QUINTEN Modifier: MILLERSH <+> 1 Start Time 10/01/18 10:07:04 Senior Systems Engineer: DAREKSH Modifier: MILLERSH <+> 1 Out Room [...] 10/01/18 10:00:38 [facility] End[facility] - General Case Carcass Splitter 1 Case Information [place] Endo 01 [facility] [place] Case Level 1 Room Verified Yes Wound [...] Modified By: JING SHELLEY RN 10/01/18 10:02:00 [facility] [place] Endo - Surgical Procedures Entry 1 Entry [...] SHERRI L, RN 10/01/18 10:00:10 10/01/18 10:00:10 [facility] [place] Endo - Surgical Procedures Audit 10/01/18 10:00:10 Senior Systems Engineer: DAREK Modifier: MILLER 1 <*> Procedure Esophagogastroduodenoscopy [...] Unfinalizing Freetext Reason for Unfinalizing 10/01/18 10:15 SONDHEIMERSIMIN Modify Pick List Electronically signed by Damir [facility] Conversion Glaze Sprayer Cerner at 12/29/2022 8:27 PM CDT documented in this encounter Plan of Treatment Not on file documented as of this encounter Visit Diagnoses Not on filedocumented in this encounter Care Teams Client Onboarding Analyst Relationship Specialty Start Date End Date Jennifer Rowe DO [address] [place] [address] PCP - General Obstetrics and Gynecology 10/11/24 Carolann Marion, BROKERAGE CLERK, CNM [address] [place] [address] Storm Chaser Certified Nurse Storm Chaser 10/11/24 documented as of this encounter
--- OUTSIDE RECORDS SUMMARY | 2025-07-29 17:32 | XMS_ITS | Encounter Summary ---
Author Organization [employer] ([place], [place], [place], [place], [place]) Address [address] [place] [address] Care Team Providers Care Chain Maker Name Role Phone Jennifer Rowe DO Primary Care Provider [phone] Carolann Marion APRN, CN Unavailable [phone] Encounter Details Date Type Department Care Team (Late st Contact Info) Description 10/01/2018 Transcribed Document [facility] [place] [facility] [place] [address] ProviderMiguel MD [address] [place] [phone] Social History Tobacco Use Types Packs/Day Years Used Date Smoking Tobacco: Never Assessed Comments Unknown Sex and Gender Information Value Date Recorded Sex Assigned at Not on file Legal Sex Female 5:46 PM CDT Gender Identity Not on file Sexual Orientation Not on file documented as of this encounter Miscellaneous Notes * Cerner Conversion Note - Miguel ProviderMD - 10/01/2018 10:13 AM ALLERGY AND IMMUNOLOGY CHIEF Nursing Discharge Summary Entered On: 10/01/2018 10:15 EST Performed On: 10/01/2018 10:13 EST by Ghislaine Chen Rn Discharge Documentation Patient Disposition, General : Discharge Discharge To : Home without planned follow-up Mode Of Departure, General Discharge : Private vehicle Accompanied By, Discharge : Mother IV Discontinued : Yes Ghislaine Chen Rn - 10/01/2018 10:13 EST Electronically signed by Damir [facility] Conversion Gravity Meter Operator Cerner at 12/29/2022 8:29 PM CDT documented in this encounter Plan of Treatment Not on file documented as of this encounter Visit Diagnoses Not on filedocumented in this encounter Care Teams Chain Maker Relationship Specialty Start Date End Date Jennifer Rowe DO [address] [place] [address] PCP - General Obstetrics and Gynecology 10/11/24 Carolann Marion, TOMI, CNM [address] [place] [phone] Director Of Rotc Certified Nurse Director Of Rotc 10/11/24 documented as of this encounter
--- OUTSIDE RECORDS SUMMARY | 2025-07-29 17:32 | XMS_ITS | Encounter Summary ---
Author Organization [employer] ([place], [place], [place], [place], [place]) Address [address] [place] [address] Care Team Providers Care Features Reporter Name Role Phone Rowe, Amy Primary Care Provider [phone] Carolann Marion APRN, CN Unavailable [phone] Encounter Details Date Type Department Care Team (Late st Contact Info) Description 10/01/2018 Transcribed Document [facility] [place] Family Medicine [address] [place] [address] ProviderMiguel MD [address] [place] [phone] Social History Tobacco Use Types Packs/Day Years Used Date Smoking Tobacco: Never Assessed Comments Unknown Sex and Gender Information Value Date Recorded Sex Assigned at Not on file Legal Sex Female 5:46 PM CDT Gender Identity Not on file Sexual Orientation Not on file documented as of this encounter Miscellaneous Notes * Cerner Conversion Note - Miguel ProviderMD - 10/01/2018 10:12 AM PEDICURIST Discharge Instructions Entered On: 10/01/2018 10:13 EST [...] tmw, see recomendations in discharge Showering/Bathing : January shower Ghislaine Chen Rn - 10/01/2018 10:12 EST Electronically signed by Damir [facility] Conversion Mail List Librarian Cerner at 12/29/2022 8:28 PM CDT documented in this encounter Plan of Treatment Not on file documented as of this encounter Visit Diagnoses Not on filedocumented in this encounter Care Teams Features Reporter Relationship Specialty Start Date End Date Jennifer Rowe DO [address] [place] [address] PCP - General Obstetrics and Gynecology 10/11/24 Carolann Marion, TOMI, CNM [address] [place] [address] Material Reclaimer Certified Nurse Material Reclaimer 10/11/24 documented as of this encounter
--- OUTSIDE RECORDS SUMMARY | 2025-07-29 17:32 | XMS_ITS | Encounter Summary ---
Author Organization [employer] ([place], [place], [place], [place], [place]) Address [address] [place] [address] Care Team Providers Care Industrial Therapist Name Role Phone Jennifer Rowe DO Primary Care Provider [phone] Carolann Marion APRN, CN Unavailable [phone] Encounter Details Date Type Department Care Team (Late st Contact Info) Description 10/01/2018 Transcribed Document [facility] [place] [facility] [place] [address] ProviderMiguel MD [address] [place] [address] [id number] Social History Tobacco Use Types Packs/Day Years Used Date Smoking Tobacco: Never Assessed Comments Unknown Sex and Gender Information Value Date Recorded Sex Assigned at Not on file Legal Sex Female 5:46 PM CDT Gender Identity Not on file Sexual Orientation Not on file documented as of this encounter Miscellaneous Notes * Cerner Conversion Note - Miguel ProviderMD - 10/01/2018 9:00 AM ISSUE CLERK [facility] PreOp Summary Primary Physician: GRAHAM TORRES MD Finalized Date/Time: 10/01/18 09:48:20 Pt. Name: LOVELY HARGROVE.O.B./Sex: 1990 Female Med Rec #: [id number] Physician: GRAHAM TORRES MD Financial #: [id number] Pt. Type: O Room/Bed: [facility] Admit/Disch: 10/01/18 09:18:00 - Institution: [facility] PreOp Case Times Entry 1 In Preop 10/01/18 09:25:00 Ready for Holding n/a Room Patient Ready for 10/01/18 09:48:00 Surgery Patient Out of Preop 10/01/18 09:48:00 Patient Out of n/a Holding Room [facility] PreOp Case Times Audit 10/01/18 09:48:17 Sponge Press Operator: NISHANT Modifier: NISHANT <+> 1 Patient Out of Preop <+> 1 Patient Ready for Surgery Finalized By: GUSTAVO MCNEILL, RN Document Signatures Signed By: GUSTAVO MCNEILL RN 10/01/18 09:48 documented in this encounter Plan of Treatment Not on file documented as of this encounter Visit Diagnoses Not on filedocumented in this encounter Care Teams Industrial Therapist Relationship Specialty Start Date End Date Jennifer Rowe DO [address] [place] [address] PCP - General Obstetrics and Gynecology 10/11/24 Carolann Marion, TOMI, CNM [address] [place] [address] Still Operator Batch Or Continuous Certified Nurse Still Operator Batch Or Continuous 10/11/24 documented as of this encounter
--- OUTSIDE RECORDS SUMMARY | 2025-07-29 17:33 | XMS_ITS | Encounter Summary ---
Author Organization [employer] ([place], [place], [place], [place], [place]) Address [address] [place] [address] Care Team Providers Care Pole Climber Name Role Phone RoweJennifer devi DO Primary Care Provider Carolann Marion APRN, CN Unavailable [phone] Encounter Details Date Type Department Care Team (Late st Contact Info) Description 10/01/2018 Transcribed Document [facility] [place] Family Medicine [address] [place] [address] ProviderMiguel MD [address] [place] [address] [phone] Social History Tobacco Use Types Packs/Day Years Used Date Smoking Tobacco: Never Assessed Comments Unknown Sex and Gender Information Value Date Recorded Sex Assigned at Not on file Legal Sex Female 5:46 PM CDT Gender Identity Not on file Sexual Orientation Not on file documented as of this encounter Miscellaneous Notes * Cerner Conversion Note - Miguel ProviderMD - 10/01/2018 10:16 AM FORENSIC MEDICAL EXAMINER Discharge Instructions Entered On: 10/01/2018 10:17 EST [...] activity tmw, see recomendations below Showering/Bathing : January cortneyer Ghislaine Chen Rn - 10/01/2018 10:16 EST documented in this encounter Plan of Treatment Not on file documented as of this encounter Visit Diagnoses Not on filedocumented in this encounter Care Teams Pole Climber Relationship Specialty Start Date End Date Jennifer Rowe DO [address] [place] [address] PCP - General Obstetrics and Gynecology 10/11/24 Carolann Marion, TOMI, CNM [address] [place] [address] Pets And Pet Supplies Salesperson Certified Nurse Pets And Pet Supplies Salesperson 10/11/24 documented as of this encounter
--- OUTSIDE RECORDS SUMMARY | 2025-07-29 17:33 | XMS_ITS | Encounter Summary ---
Author Organization [employer] ([place], [place], [place], [place], [place]) Address [address] [place] [address] Care Team Providers Care Loss Control Consultant Name Role Phone Jennifer Rowe DO Primary Care Provider [phone] Carolann Marion APRN, CN Unavailable [phone] Encounter Details Date Type Department Care Team (Late st Contact Info) Description 10/01/2018 Transcribed Document [facility] [place] Family [place] [facility] [place] [address] ProviderMiguel MD [address] [place] [address] [id number] Social History Tobacco Use Types Packs/Day Years Used Date Smoking Tobacco: Never Assessed Comments Unknown Sex and Gender Information Value Date Recorded Sex Assigned at Not on file Legal Sex Female 5:46 PM CDT Gender Identity Not on file Sexual Orientation Not on file documented as of this encounter Miscellaneous Notes * Cerner Conversion Note - Miguel ProviderMD - 10/01/2018 10:16 AM RESIDENT PROGRAM SPECIALIST Nursing Discharge Summary Entered On: 10/01/2018 10:16 [...] Ghislaine Chen, Rn - 10/01/2018 10:16 EST Electronically signed by [facility] Conversion Jailor Cerner at 12/29/2022 8:16 PM CDT documented in this encounter Plan of Treatment Not on file documented as of this encounter Visit Diagnoses Not on filedocumented in this encounter Care Teams Loss Control Consultant Relationship Specialty Start Date End Date Jennifer Rowe DO [address] [address] PCP - General Obstetrics and Gynecology 10/11/24 Carolann Marion, TOMI, CNM [address] [place] [address] Professional Skateboarder Certified Nurse Professional Skateboarder 10/11/24 documented as of this encounter
--- OUTSIDE RECORDS SUMMARY | 2025-07-29 17:33 | XMS_ITS | Encounter Summary ---
Author Organization [employer] ([place], [place], [place], [place], [place]) Address [address] [place] [address] Care Team Providers Care Windshield Repair Technician Name Role Phone Jennifer Rowe DO Primary Care Provider [phone] Carolann Marion APRN, CN Unavailable [phone] Encounter Details Date Type Department Care Team (Late st Contact Info) Description 10/01/2018 Transcribed Document [facility] [place] [address] [place] [address] ProviderMiguel MD [address] [place], [place] [id number] Social History Tobacco Use Types Packs/Day Years Used Date Smoking Tobacco: Never Assessed Comments Unknown Sex and Gender Information Value Date Recorded Sex Assigned at Not on file Legal Sex Female 5:46 PM CDT Gender Identity Not on file Sexual Orientation Not on file documented as of this encounter Miscellaneous Notes * Cerner Conversion Note - Historical ProviderMD - 10/01/2018 9:35 AM ROLLER REPAIRER Height and Weight, Clinical Dosing Entered On: 10/01/2018 9:36 EST Performed On: 10/01/2018 9:35 EST by GUSTAVO MCNEILL RN Height and Weight, Clinical Dosing Height Source : Stated Height Entry Format : [place] Height, Feet : 5 ft(Converted to: 152 cm, 60 Inch) Height, Inches : 0 Inch(Converted to: 0 ft 0 Inch, 0.00 cm) Clinical Height : 152.4 cm Weight Source : Standing scale Weight Entry Format : [place] Clinical Dosing Weight : 78.69 kg Weight, Pounds : 173 lb Weight, Ounces : 2 oz Body Surface Area (BSA) : 1.76 m2 Body Mass Index : 33.9 kg/m2 (HI) [place] Body Weight : 45 kg GUSTAVO MCNEILL, RN - 10/01/2018 9:35 EST Electronically signed by [facility], [facility] Conversion First Aid Nurse Cerner at 12/29/2022 8:31 PM CDT documented in this encounter Plan of Treatment Not on file documented as of this encounter Visit Diagnoses Not on filedocumented in this encounter Care Teams Windshield Repair Technician Relationship Specialty Start Date End Date Jennifer Rowe DO [address] [place] [address] PCP - General Obstetrics and Gynecology 10/11/24 Carolann Marion, TOMI, CNM [address] [place] [address] Electric Tool Repairer Certified Nurse Electric Tool Repairer 10/11/24 documented as of this encounter
--- OUTSIDE RECORDS SUMMARY | 2025-07-29 17:34 | XMS_ITS | Encounter Summary ---
Author Organization [employer] ([place], [place], [place], [place], [place]) Address [address] [place] [address] Care Team Providers Care Mid Level Net Developer Name Role Phone RoweJennifer devi DO Primary Care Provider [phone] Carolann Marion APRN, CN Unavailable [phone] Encounter Details Date Type Department Care Team (Late st Contact Info) Description 10/21/2018 Transcribed Document [facility] [place] [facility] [place] [address] Miguel Juarez MD [address] [place] [address] [id number] Social History Tobacco Use Types Packs/Day Years Used Date Smoking Tobacco: Never Assessed Comments Unknown Sex and Gender Information Value Date Recorded Sex Assigned at Not on file Legal Sex Female 5:46 PM CDT Gender Identity Not on file Sexual Orientation Not on file documented as of this encounter Miscellaneous Notes * Cerner Conversion Note - Miguel Juarez MD - 10/21/2018 8:33 AM DATA COLLECTION INTERVIEWER DATE OF PROCEDURE: 10/06/2018 SURGEON: Eliu Norman MD MANAGER ORGANIZATIONAL: Shreya Garcia PA-C PREOPERATIVE DIAGNOSIS(ES): Symptomatic cholelithiasis. [...] on filedocumented in this encounter Care Teams Mid Level Net Developer Relationship Specialty Start Date End Date Jennifer Rowe DO [address] [place] [address] PCP - General Obstetrics and Gynecology 10/11/24 Carolann Marion, TOMI, CNM [address] [place] [address] Digital Commentator Certified Nurse Digital Commentator 10/11/24 documented as of this encounter
--- OUTSIDE RECORDS SUMMARY | 2025-07-29 17:34 | XMS_ITS | Encounter Summary ---
Author Organization [employer] ([place], [place], [place], [place], [place]) Address [address] [place] [address] Care Team Providers Care Relationship Mgr Name Role Phone Jennifer Rowe DO Primary Care Provider [phone] Carolann Marion APRN, CN Unavailable [phone] Encounter Details Date Type Department Care Team (Late st Contact Info) Description 10/06/2018 Transcribed Document [facility] [place] Family Medicine [facility] [address] ProviderMiguel MD [address] [place] [id number] Social History Tobacco Use Types Packs/Day Years Used Date Smoking Tobacco: Never Assessed Comments Unknown Sex and Gender Information Value Date Recorded Sex Assigned at Not on file Legal Sex Female 5:46 PM CDT Gender Identity Not on file Sexual Orientation Not on file documented as of this encounter Miscellaneous Notes * Cerner Conversion Note - Miguel ProviderMD - 10/06/2018 9:21 AM WINDOWS ADMIN Pediatric Growth Entered On: 10/06/2018 9:21 EST Performed On: 10/06/2018 9:21 EST by Dee Huff Patient Teradata Solution Architect Height and Weight, Clinical Dosing Weight Source : Standing scale Weight Entry Format : [place] Clinical Dosing Weight : 78.18 kg Weight, Pounds : 172 lb Dee Huff, Patient Teradata Solution Architect - 10/06/2018 9:21 EST Electronically signed by [facility] Conversion Construction Carpenters Helper [place] at 12/29/2022 8:34 PM CDT documented in this encounter Plan of Treatment Not on file documented as of this encounter Visit Diagnoses Not on filedocumented in this encounter Care Teams Relationship Mgr Relationship Specialty Start Date End Date Jennifer Rowe DO [address] [place] [address] PCP - General Obstetrics and Gynecology 10/11/24 Carolann Marion, [place] MANAGER, CNM [address] [place] [address] Aircraft Designer Certified Nurse Aircraft Designer 10/11/24 documented as of this encounter
--- OUTSIDE RECORDS SUMMARY | 2025-07-29 17:34 | XMS_ITS | Referral Summary ---
Author Organization [employer] ([place], [place], [place], [place], [place]) Address [address] [place] [address] Care Team Providers Care Meteorological Equipment Repairer Name Role Phone Jennifer Rowe DO Primary Care Provider [phone] Carolann Marion APRN, CN Unavailable [phone] Encounters Date Type Department Care Team Description 07/08/2025 Travel 07/08/2025 10:00 AM EDT - 07/08/2025 10:59 PM EDT Hospital Encounter [address] [place] [address] Jennifer Rowe DO Abnormal mammogram Discharge [...] for diagnostic mammogram and MRI Reschedule with [facility] breast center Assessment & Plan (04/20/2024 8:46 PM EDT): When imaging was scheduled , patient was Previous patient of [facility] but is willing to start care with The Breast Center at [facility] E Will send orders Resolved Problems [...] Do you speak a language other than Yi at [facility]? No 03/09/2024 Do you want help [...] 03/09/2024 10:53 AM EDT Plan of Treatment Not on file Procedures Procedure Name Priority Date/Time Associated Diagnosis [...] recommended imaging studies/procedures. us Shanti Buck MD IM US ORDERABLES Final Result * Pap Smear, Thin Prep (08/19/2024 12:00 AM EST) Vaginal/Cervical/ Endocervical OTHER / Unknown Carolann Marion APRN, [facility] PATHOLOGY/CYTOLOGY CATHERINE SOUZA Final Result Performing Organization Address [facility]/ZIP Co de Phone Number PATH[facility]Y [facility]OLOGY LABORATORY [address] [place] [address] * Hepatitis C Antibody w Reflex HCV Verifi (10/20/2023 2:48 PM EST) Pathologist [facility] HCV Ab Non Reactive Non Reactive [facility] Blood 10/20/2023 2:48 PM EST 10/20/2023 Narrative [facility] - 10/21/2023 10:07 AM EST Performed at: 01 - [facility] [id number] Transit Bus Driver: Sami Coulter PhD, Phone: [phone] us Jennifer Rowe DO LAB BLOOD ORDERABLES [...] AM EST Performed at: 01 - [facility] [address] [id number] Transit Bus Driver: Sami Coulter PhD, Phone: [phone] us Jennifer Rowe DO LAB BLOOD ORDERABLES Final Resul t [facility] from Last 3 Months or Most Recently Relevant to Health [place] [id number] [facility] MEDICAID Advance Directives For more information, please contact: [phone] * Full Code (Latest Code Status on File) Date Activated Date Inactivated Comments 03/09/2024 1:31 PM 03/11/2024 2:42 PM * Full Code Date Activated Date Inactivated Comments 03/09/2024 9:24 AM 03/09/2024 1:31 PM Care Teams Meteorological Equipment Repairer Relationship Specialty Start Date End Date Jennifer Rowe DO [address] [place] [address] PCP - General Obstetrics and Gynecology 10/11/24 Carolann Marion, DRIER HELPER, CNM [address] [place] [address] Pasteuriser Operator Certified Nurse Pasteuriser Operator 10/11/24
--- OUTSIDE RECORDS SUMMARY | 2025-07-29 17:35 | XMS_ITS | Encounter Summary ---
Author Organization [employer] ([place], [place], [place], [place], [place]) Address [address] [place] [address] Care Team Providers Care Fur Tailor Name Role Phone Jennifer Rowe DO Primary Care Provider [phone] Carolann Marion APRN, CN Unavailable [phone] Encounter Details Date Type Department Care Team (Late st Contact Info) Description 10/06/2018 Transcribed Document [facility] [place] [facility] [place] [address] ProviderMiguel MD [address] [place] [address] [id number] Social History Tobacco Use Types Packs/Day Years Used Date Smoking Tobacco: Never Assessed Comments Unknown Sex and Gender Information Value Date Recorded Sex Assigned at Not on file Legal Sex Female 5:46 PM CDT Gender Identity Not on file Sexual Orientation Not on file documented as of this encounter Miscellaneous Notes * Cerner Conversion Note - Miguel Juarez MD - 10/06/2018 11:23 AM DAMAGE APPRAISER [facility] PostOp Summary Primary Physician: GRAHAM TORRES MD Finalized Date/Time: 10/06/18 15:37:26 Pt. Name: LOVELY HARGROVE.O.B./Sex: 1990 Female Med Rec #: [id number] Physician: GRAHAM TORRES MD Financial #: [id number] Pt. Type: O Room/Bed: Admit/Disch: 10/06/18 08:31:00 - Institution: [facility] PostOp Case Times Entry 1 In PACU II 10/06/18 13:08:00 Ready for PACU II 10/06/18 14:00:00 Discharge Discharge from PACU 10/06/18 14:56:00 II Last Modified By: Orin Garcia RN 10/06/18 15:37:20 Finalized By: Orin Garcia, RN Document Signatures Signed By: Orin Garcia RN 10/06/18 15:37 documented in this encounter Plan of Treatment Not on file documented as of this encounter Visit Diagnoses Not on filedocumented in this encounter Care Teams Fur Tailor Relationship Specialty Start Date End Date Jennifer Rowe DO [address] [place] [address] PCP - General Obstetrics and Gynecology 10/11/24 Carolann Marion, ROPE LAYING MACHINE OPERATOR, CNM [address] [place] [address] Renderer Certified Nurse Renderer 10/11/24 documented as of this encounter
--- OUTSIDE RECORDS SUMMARY | 2025-07-29 17:35 | XMS_ITS | Clinical Summary ---
Author Organization [employer] ([place], [place], [place], [place], [place]) Address [address] [place] [address] Care Team Providers Care Police Communications Operator Name Role Phone Rowe, Amy Primary Care Provider [phone] Carolann Marion APRN, CNM Unavailable Allergies Active Allergy Reactions Criticality Noted Date [...] for diagnostic mammogram and MRI Reschedule with [facility] breast center Assessment & Plan (04/20/2024 8:46 PM EDT): When imaging was scheduled , patient was Previous patient of [facility] but is willing to start care with The Breast Center at [facility] E Will send orders Resolved [...] - 07/08/2025 10:59 PM EDT Hospital Encounter [facility] [address] [facility] [facility] [address] [place] [address] Jennifer Rowe, DO Abnormal mammogram Discharge Disposition: [...] Do you speak a language other than Uzbek at [facility]? No 03/09/2024 Do you want help with [...] 03/09/2024 10:53 AM EDT Plan of Treatment Health Maintenance Due Date Last Done Comments Depression Screening (12+) 2002 COVID-19 VACCINE ( - 2023- season) 2025 Influenza Vaccine (#1) 2025 05/16/2018 Tobacco Cessation Counseling and Screening (12+) 06/11/2026 06/11/2025 Pap Smear 08/19/2027 08/19/2024, 10/05/2023, 05/20/2021, Additional history exists DTAP/TDAP/TD VACCINES (3 [...] LIBBY Final Result PATH[facility]Y [facility]Y LAB[facility]ORY [address] [place] [address] * Hepatitis C Antibody w Reflex HCV Verifi (10/20/2023 2:48 PM EST) HCV Ab Non Reactive Non Reactive [facility] Blood 10/20/2023 2:48 PM EST 10/20/2023 Narrative [facility] - 10/21/2023 10:07 AM EST Performed at: - [address] [id number] Photographic Machine Operator: Sami Coulter PhD, Phone: [phone] us Jennifer Rowe DO LAB BLOOD ORDERABLES Final Resul t Performing Organization Address City/[facility] Co de Phone Number [facility] * HIV-1 Antigen with HIV-1/2 Antibody (10/20/2023 2:48 PM EST) HIV Screen 4th Generation wRfx Non Reactive Non Reactive [facility] Comment: HIV Negative HIV-1/HIV-2 antibodies and HIV-1 p24 antigen were NOT detected. There is no laboratory evidence of HIV infection. Blood 10/20/2023 2:48 PM EST 10/20/2023 Narrative [facility] - 10/21/2023 10:07 AM EST Performed at: - [facility] [id number] Photographic Machine Operator: Sami Coulter PhD, Phone: [phone] us Jennifer Rowe DO LAB BLOOD ORDERABLES Final Resul t [facility] from Last 3 Months or Most Recently Relevant to Health Maintenance Insurance [facility] MEDICAID Advance Directives For more information, please contact: [phone] * Full Code (Latest Code Status on File) Date Activated Date Inactivated Comments 03/09/2024 1:31 PM 03/11/2024 2:42 PM * Full Code Date Activated Date Inactivated Comments 03/09/2024 9:24 AM 03/09/2024 1:31 PM Care Teams Police Communications Operator Relationship Specialty Start Date End Date Jennifer Rowe DO [address] [place] [address] PCP - General Obstetrics and Gynecology 10/11/24 Carolann Marion, VARNISH FILTERER, CNM [address] [place] [address] Maintenance Advisor Certified Nurse Maintenance Advisor 10/11/24
--- OUTSIDE RECORDS SUMMARY | 2025-07-29 17:36 | XMS_ITS | Encounter Summary ---
Author Organization [employer] ([place], [place], [place], [place], [place]) Address [address] [place] [address] Care Team Providers Care Wood And Wood Products Factory Worker Name Role Phone Jennifer Rowe DO Primary Care Provider [phone] Carolann Marion APRN, CN Unavailable [phone] Encounter Details Date Type Department Care Team (Late st Contact Info) Description 10/06/2018 Transcribed Document [facility] [place] [address] ProviderMiguel MD [address] [place] [address] [phone] Social History Tobacco Use Types Packs/Day Years Used Date Smoking Tobacco: Never Assessed Comments Unknown Sex and Gender Information Value Date Recorded Sex Assigned at Not on file Legal Sex Female 5:46 PM CDT Gender Identity Not on file Sexual Orientation Not on file documented as of this encounter Miscellaneous Notes * Cerner Conversion Note - Miguel Juarez MD - 10/06/2018 10:35 AM BOX TOE BUFFER [facility] OR PreOp Summary Primary Physician: GRAHAM TORRES MD Finalized Date/Time: 10/06/18 11:06:16 Pt. Name: LOVELY HARGROVE.O.B./Sex: 1990 Female Med Rec #: [id number] Physician: GRAHAM TORRES MD Financial #: [id number] Pt. Type: O Room/Bed: Admit/Disch: 10/06/18 08:31:00 - Institution: [facility] PreOp Case Times Entry 1 In Preop 10/06/18 08:40:00 Ready for Holding n/a Room Patient Ready for 10/06/18 09:43:00 Surgery Patient Out of Preop 10/06/18 11:05:00 Patient Out of n/a Holding Room Last Modified By: TRACE SANTILLAN 10/06/18 11:06:15 FABIANA PreOp Case Times Audit 10/06/18 11:06:15 Venipuncturist: ELDON Modifier: [email or web address] <+> 1 Patient Out of Preop Finalized By: TRACE SANTILLAN Document Signatures Signed By: TRACE SANTILLAN 10/06/18 11:06 Electronically signed by [facility] Conversion Telephone Operator Cerner at 12/29/2022 8:28 PM CDT documented in this encounter Plan of Treatment Not on file documented as of this encounter Visit Diagnoses Not on filedocumented in this encounter Care Teams Wood And Wood Products Factory Worker Relationship Specialty Start Date End Date Jennifer Rowe DO [address] [place] [address] PCP - General Obstetrics and Gynecology 10/11/24 Carolann Marion, TOMI, CNM [address] [place] [address] Field Artillery Basic Certified Nurse Field Artillery Basic 10/11/24 documented as of this encounter
--- OUTSIDE RECORDS SUMMARY | 2025-07-29 17:36 | XMS_ITS | Encounter Summary ---
Author Organization [employer] ([place], [place], [place], [place], [place]) Address [address] [place] [address] Care Team Providers Care Aeronautical Products Sales Engineer Name Role Phone Jennifer Rowe DO Primary Care Provider [phone] Carolann Marion APRN, CN Unavailable [phone] Encounter Details Date Type Department Care Team (Late st Contact Info) Description 10/06/2018 Transcribed Document [facility] [place] [facility] [place] [address] ProviderMiguel MD [address] [place] [address] [id number] Social History Tobacco Use Types Packs/Day Years Used Date Smoking Tobacco: Never Assessed Comments Unknown Sex and Gender Information Value Date Recorded Sex Assigned at Not on file Legal Sex Female 5:46 PM CDT Gender Identity Not on file Sexual Orientation Not on file documented as of this encounter Miscellaneous Notes * Cerner Conversion Note - Miguel Juarez MD - 10/06/2018 11:23 AM INSOLE DEPARTMENT WORKER FABIANA Main OR PACU Summary Primary Physician: GRAHAM TORRES MD Finalized Date/Time: 10/06/18 13:17:08 Pt. Name: LOVELY HARGROVE.O.B./Sex: 1990 Female Med Rec #: [id number] Physician: GRAHAM TORRES MD Financial #: [id number] Pt. Type: O Room/Bed: Admit/Disch: 10/06/18 08:31:00 - Institution: [facility] [place] PACU Case Times Entry 1 In PACU I 10/06/18 12:06:00 Ready for PACU 10/06/18 13:09:00 Discharge Discharge from PACU 10/06/18 13:09:00 I Last Modified By: Anna Chauhan Rn 10/06/18 13:09:55 [facility] Main OR PACU Case Times Audit 10/06/18 13:09:55 Coal Cager: [email or web address] Modifier: [email or web address] <+> 1 Ready for PACU Discharge <+> 1 Discharge from PACU I Finalized By: Anna Chauhan, Rn Document Signatures Signed By: Anna Chauhan Rn 10/06/18 13:17 Electronically signed by Damir [facility] Conversion Apron Worker Cerner at 12/29/2022 8:33 PM CDT documented in this encounter Plan of Treatment Not on file documented as of this encounter Visit Diagnoses Not on filedocumented in this encounter Care Teams Aeronautical Products Sales Engineer Relationship Specialty Start Date End Date Jennifer Rowe DO [address] [place] [phone] PCP - General Obstetrics and Gynecology 10/11/24 Carolann Marion APRN, CNM [address] [place] [phone] Marble Rubber Certified Nurse Marble Rubber 10/11/24 documented as of this encounter
--- OUTSIDE RECORDS SUMMARY | 2025-07-29 17:37 | XMS_ITS | Encounter Summary ---
Author Organization [employer] ([place], [place], [place], [place], [place]) Address [address] [place] [address] Care Team Providers Care Ekg/Ecg Technician Name Role Phone Jennifer Rowe DO Primary Care Provider [phone] Reji Marion APRN, CN Unavailable [phone] Encounter Details Date Type Department Care Team (Late st Contact Info) Description 10/06/2018 Transcribed Document [facility] [place] [facility] [place] [address] ProviderMiguel MD [address] [place] [address] Social History Tobacco Use Types Packs/Day Years Used Date Smoking Tobacco: Never Assessed Comments Unknown Sex and Gender Information Value Date Recorded Sex Assigned at Not on file Legal Sex Female 5:46 PM CDT Gender Identity Not on file Sexual Orientation Not on file documented as of this encounter Miscellaneous Notes * Cerner Conversion Note - Historical ProviderMD - 10/06/2018 9:34 AM PLATE CONDITIONER Pre Procedure Adult Entered On: 10/06/2018 9:41 EST Performed On: 10/06/2018 9:34 EST by VADIM CAMPBELL RN Height and Weight, Clinical Dosing Height Source : Stated Height Entry Format : [place] Height, Feet : 5 ft(Converted to: 152 cm, 60 Inch) Height, Inches : 0 Inch(Converted to: 0 ft 0 Inch, 0.00 cm) Clinical Height : 152.4 cm Weight Source : Standing scale Weight Entry Format : [place] Clinical Dosing Weight : 78.18 kg Weight, Pounds : 172 lb Body Surface Area (BSA) : 1.75 m2 Body Mass Index : 33.7 kg/m2 (HI) [place] Body Weight : 45 kg VADIM CAMPBELL [...] Info Preferred Name : Colleen Support Person/Patient Polish Maker : Yes Want Family/Rep/Phys Notified of Admit : No Emergency Contact #1 : reji kim Emergency Contact #1 Emergency Contact #1 Relationship : mom Emergency Contact #2 : tamiko garcia Emergency Contact #2 Phone Number : [phone] Emergency Contact #2 Relationship : boyjose carlos Primary Language : Surinamese Preferred Communication Mode : Verbal Communication Barrier [...] Scale Risk Level : 0-24 Low Risk [place] Fall Interventions : Adequate lighting, Assistive devices [...] on filedocumented in this encounter Care Teams Ekg/Ecg Technician Relationship Specialty Start Date End Date Jennifer Rowe DO [address] [address] PCP - General Obstetrics and Gynecology 10/11/24 Reji Marion, TOMI, CNM [address] [address] Clay Processing Factory Worker Certified Nurse Clay Processing Factory Worker 10/11/24 documented as of this encounter
--- OUTSIDE RECORDS SUMMARY | 2025-07-29 17:37 | XMS_ITS | Encounter Summary ---
Author Organization [employer] ([place], [place], [place], [place], [place]) Address [address] [place] [address] Care Team Providers Care Brim Stretching Machine Operator Name Role Phone Jennifer Rowe DO Primary Care Provider [phone] Carolann Marion APRN, CN Unavailable [phone] Encounter Details Date Type Department Care Team (Late st Contact Info) Description 10/06/2018 Transcribed Document [facility] [place] [facility] [place] [address] ProviderMiguel MD [address] [place] [address] [phone] Social History Tobacco Use Types Packs/Day Years Used Date Smoking Tobacco: Never Assessed Comments Unknown Sex and Gender Information Value Date Recorded Sex Assigned at Not on file Legal Sex Female 5:46 PM CDT Gender Identity Not on file Sexual Orientation Not on file documented as of this encounter Miscellaneous Notes * Cerner Conversion Note - Miguel Juarez MD - 10/06/2018 11:23 AM SENIOR SOURCING MANAGER [facility] Main OR IntraOp Summary Primary Physician: GRAHAM TORRES MD Finalized Date/Time: 10/06/18 12:11:34 Pt. Name: LOVELY HARGROVE.O.B./Sex: 1990 Female Med Rec #: [id number] Physician: GRAHAM TORRES MD Financial #: [id number] Pt. Type: O Room/Bed: Admit/Disch: 10/06/18 08:31:00 - [place] [facility] [place] Attendance Entry 1 Entry 2 Entry 3 Case Attendee GRAHAM TORRES MD TURNER, ASHLEY, PA Smith, Kayla R., Diazo Technician Role Performed Surgeon/Proceduralist, Physician business support assistant Scrub, First First Time In 10/06/18 [...] MORIS COLLINS, Mackenzie Freeman, RASHAAD Caruso V, STRAIGHTENING PRESS OPERATOR HELPER Diazo Technician Role Performed Scrub, Second Community Health Advocate, Second STRAIGHTENING PRESS OPERATOR HELPER/Nurse Smoke Tester Time In 10/06/18 11:34:00 10/06/18 11:08:00 10/06/18 [...] Attendee Nikunj Ochoa JULIANA, RN Role Performed Sheet Metal Worker Apprentice, Ancillary Community Health Advocate, First Time In 10/06/18 11:08:00 10/06/18 11:08:00 Time Out 10/06/18 12:04:00 10/06/18 12:04:00 Procedure Cholecystectomy Cholecystectomy Laparoscopic, Hernia Laparoscopic, Hernia Repair Internal Repair Internal Laparoscopic Laparoscopic Other Attendee Superficial Wound Closed By: Last Modified By: Mackenzie Freeman, Mackenzie Saxena Rn 10/06/18 12:10:56 10/06/18 12:10:56 [facility] IntraOp Case Attendance Audit 10/06/18 12:10:56 Pastrycook'S Assistant: [id number] Modifier: [id number] 1 <*> Procedure Cholecystectomy Laparoscopic 2 <*> Procedure Cholecystectomy Laparoscopic 3 <*> Procedure Cholecystectomy Laparoscopic 4 <*> Procedure Cholecystectomy Laparoscopic 5 <*> Procedure Cholecystectomy Laparoscopic 6 <*> Procedure Cholecystectomy Laparoscopic 7 <*> Procedure Cholecystectomy Laparoscopic 8 <*> Procedure Cholecystectomy Laparoscopic 10/06/18 12:10:40 Pastrycook'S Assistant: [id number] Modifier: [id number] 1 <*> Procedure Cholecystectomy Laparoscopic, Hernia Repair [...] Laparoscopic, Hernia Repair Internal Laparoscopic 10/06/18 12:04:31 Pastrycook'S Assistant: [id number] Modifier: [id number] 1 <*> Procedure Cholecystectomy Laparoscopic, Hernia Repair [...] Laparoscopic, Hernia Repair Internal Laparoscopic 10/06/18 11:58:40 Pastrycook'S Assistant: [id number] Modifier: [id number] 1 <+> Time Out 1 <*> Procedure Cholecystectomy Laparoscopic, Hernia Repair Internal Laparoscopic 10/06/18 11:48:00 Pastrycook'S Assistant: [id number] Modifier: [id number] 1 <*> Procedure Cholecystectomy Laparoscopic 2 <*> Procedure Cholecystectomy Laparoscopic 3 <*> Procedure Cholecystectomy Laparoscopic 4 <*> Procedure Cholecystectomy Laparoscopic 5 <*> Procedure Cholecystectomy Laparoscopic 6 <*> Procedure Cholecystectomy Laparoscopic 7 <*> Procedure Cholecystectomy Laparoscopic 8 <*> Procedure Cholecystectomy Laparoscopic 10/06/18 11:36:39 Pastrycook'S Assistant: [id number] Modifier: [id number] <+> 1 Procedure 2 <*> Procedure Cholecystectomy Laparoscopic 3 <*> Procedure Cholecystectomy Laparoscopic 4 <*> Procedure Cholecystectomy Laparoscopic 5 <*> Procedure Cholecystectomy Laparoscopic 6 <*> Procedure Cholecystectomy Laparoscopic 7 <*> Procedure Cholecystectomy Laparoscopic 8 <*> Procedure Cholecystectomy Laparoscopic 10/06/18 11:35:52 Pastrycook'S Assistant: [id number] Modifier: [id number] <+> Time Out 3 <*> Procedure Cholecystectomy Laparoscopic 4 <*> Time In 10/06/18 11:34:00 4 <*> Procedure Cholecystectomy Laparoscopic 10/06/18 11:09:49 Pastrycook'S Assistant: [id number] Modifier: [id number] <+> 1 Time In 2 <+> Time [...] 8 <*> Procedure Cholecystectomy Laparoscopic 10/06/18 11:02:08 Pastrycook'S Assistant: [id number] Modifier: [id number] 1 <*> Case Attendee GRAHAM TORRES MD 1 <*> Role Performed Surgeon/Proceduralist, First 2 <*> Case Attendee JESUS LILLY PA 2 <*> Role Performed Physician business support assistant 2 <*> Procedure Cholecystectomy Laparoscopic 3 <*> Case Attendee Natalya Tinoco, Diazo Technician 3 <*> Role Performed Scrub, First 3 <*> Procedure Cholecystectomy Laparoscopic 4 <*> Case Attendee MORIS COLLISN, Diazo Technician 4 <*> Role Performed Scrub, Second 4 <*> Procedure Cholecystectomy Laparoscopic 5 <+> Case Attendee 5 <*> Role Performed Community Health Advocate, First 5 <*> Procedure Cholecystectomy Laparoscopic 6 <*> Case Attendee Mackenzie Freeman Rn 6 <*> Role Performed Community Health Advocate, Second 6 <*> Procedure Cholecystectomy Laparoscopic 7 <*> Case Attendee OFE, RASHAAD V, STRAIGHTENING PRESS OPERATOR HELPER 7 <*> Role Performed STRAIGHTENING PRESS OPERATOR HELPER/Nurse Smoke Tester 7 <*> Procedure Cholecystectomy Laparoscopic 8 <*> Case Attendee Nikunj Ochoa 8 <*> Role Performed Sheet Metal Worker Apprentice, Ancillary 8 <*> Procedure Cholecystectomy Laparoscopic [facility] IntraOp Case Times Entry 1 Patient In Room Time 10/06/18 11:08:00 Out Room Time 10/06/18 12:04:00 Anesthesia Start Time 10/06/18 11:08:00 Stop Time 10/06/18 12:04:00 Anesthesia Ready 10/06/18 11:08:00 Surgery / Procedure Times Start Time 10/06/18 11:23:00 Stop Time 10/06/18 11:57:00 Last Modified By: Mackenzie Freeman Rn 10/06/18 12:04:09 [facility] IntraOp Case Times Audit 10/06/18 12:04:09 Pastrycook'S Assistant: [id number] Modifier: [id number] <+> 1 Out Room Time <+> 1 Stop Time 10/06/18 11:59:06 Pastrycook'S Assistant: [id number] Modifier: [id number] <+> 1 Stop Time 10/06/18 11:24:19 Pastrycook'S Assistant: [id number] Modifier: [id number] <+> 1 Start Time 10/06/18 11:15:03 Pastrycook'S Assistant: [id number] Modifier: [id number] <+> 1 Start Time <+> 1 Anesthesia Ready [facility] IntraOp Cautery Entry 1 ESU Identification Cautery Type Monopolar ESU ID Number [id number] ID Type Hospital Number Cautery Settings Cut Setting 0 Coag Setting 30 ESU Grounding Pad Ground Pad Type Reusable electrode pad Grounding Pad Site Upper Back Grounding Pad Site Intact Skin Condition Before Cautery Grounding Pad Site Intact Skin Condition After Cautery Last Modified By: Mackenzie Freeman Rn 10/06/18 11:28:44 [facility] IntraOp Cautery Audit 10/06/18 11:28:44 Pastrycook'S Assistant: [id number] Modifier: [id number] 1 <*> ID Number [id number] 10/06/18 11:07:13 Pastrycook'S Assistant: [id number] Modifier: [id number] 1 <*> Cautery Type Monopolar ESU 1 [...] 11:28:09 [facility] IntraOp Communication Audit 10/06/18 11:28:09 Pastrycook'S Assistant: [id number] Modifier: [id number] <+> 1 Date and Time <+> 1 [...] [facility] IntraOp Counts Verification Audit 10/06/18 12:10:58 Pastrycook'S Assistant: [id number] Modifier: [id number] 1 <*> Procedure Cholecystectomy Laparoscopic 10/06/18 12:10:41 Pastrycook'S Assistant: [id number] Modifier: [id number] 1 <*> Procedure Cholecystectomy Laparoscopic, Hernia Repair Internal Laparoscopic 10/06/18 11:48:02 Pastrycook'S Assistant: [id number] Modifier: [id number] 1 <*> Procedure Cholecystectomy Laparoscopic [facility] IntraOp Counts Final Entry 1 Procedure Cholecystectomy Laparoscopic, Hernia Repair Internal Laparoscopic Final Count Info Count Type Sponge, Sharps, Miscellaneous Counts Verification Skin Closure/end of Sequence procedure Count Results Correct, surgeon notified Counts Performed By Count Performed By MORIS COLLINS, (Scrub) Diazo Technician Count Performed By HELEN LCIFFORD RN (RN) Last Modified By: Mackenzie Freeman Rn 10/06/18 12:10:59 [facility] IntraOp Counts Final Audit 10/06/18 12:10:59 Pastrycook'S Assistant: [id number] Modifier: [id number] 1 <*> Procedure Cholecystectomy Laparoscopic 10/06/18 12:10:43 Pastrycook'S Assistant: [id number] Modifier: [id number] 1 <*> Procedure Cholecystectomy Laparoscopic, Hernia Repair Internal Laparoscopic 10/06/18 11:51:58 Pastrycook'S Assistant: [id number] Modifier: [id number] 1 <*> Procedure Cholecystectomy Laparoscopic, Hernia Repair Internal Laparoscopic 1 <*> Count Performed By (Scrub) Natalya Tinoco, Diazo Technician 1 <+> Counts Verification Sequence 10/06/18 11:48:03 Pastrycook'S Assistant: [id number] Modifier: [id number] 1 <*> Procedure Cholecystectomy Laparoscopic [facility] IntraOp [...] IntraOp Fire Risk Assessment Audit 10/06/18 11:31:14 Pastrycook'S Assistant: [id number] Modifier: [id number] 1 <*> Fire Risk Assessment Verified 10/06/18 11:15:00 Date/Time 10/06/18 11:16:43 Pastrycook'S Assistant: [id number] Modifier: [id number] <+> 1 Fire Risk Assessment Verified Date/Time [facility] IntraOp General Case Mid Level Project Manager 1 Case Information OR OR 03 [facility] Case Level 1 Room Verified Yes Wound Class II - Clean-Contaminated Specialty SN General Anesthesia Type General ASA Class 2 Diagnosis Preop Diagnosis symptomatic cholelithiasis Postop Same As Preop Yes Postop Diagnosis symptomatic cholelithiasis Last Modified By: Mackenzie Freeman Rn 10/06/18 11:23:57 [facility] IntraOp General Case Data Audit 10/06/18 11:23:57 Pastrycook'S Assistant: [id number] Modifier: [id number] <+> 1 ASA Class <+> 1 Anesthesia [...] [facility] IntraOp Patient Positioning Audit 10/06/18 12:10:58 Pastrycook'S Assistant: [id number] Modifier: [id number] 1 <*> Procedure Cholecystectomy Laparoscopic 10/06/18 12:10:42 Pastrycook'S Assistant: [id number] Modifier: [id number] 1 <*> Procedure Cholecystectomy Laparoscopic, Hernia Repair Internal Laparoscopic 10/06/18 11:48:02 Pastrycook'S Assistant: [id number] Modifier: [id number] 1 <*> Procedure Cholecystectomy Laparoscopic [facility] IntraOp [...] Intra Op Sign Out Audit 10/06/18 12:04:12 Pastrycook'S Assistant: [id number] Modifier: [id number] <+> 1 RN Sign Out Signature Date/Time [...] [facility] IntraOp Skin Prep Audit 10/06/18 12:10:58 Pastrycook'S Assistant: [id number] Modifier: [id number] 1 <*> Procedure Cholecystectomy Laparoscopic 10/06/18 12:10:42 Pastrycook'S Assistant: [id number] Modifier: [id number] 1 <*> Procedure Cholecystectomy Laparoscopic, Hernia Repair Internal Laparoscopic 10/06/18 11:48:02 Pastrycook'S Assistant: [id number] Modifier: [id number] 1 <*> Procedure Cholecystectomy Laparoscopic [facility] IntraOp [...] [facility] IntraOp Surgical Procedures Audit 10/06/18 12:10:49 Pastrycook'S Assistant: [id number] Modifier: [id number] 1 <*> Procedure Cholecystectomy Laparoscopic 2 <*> Procedure Hernia Repair Internal Laparoscopic 2 <+> Primary Surgeon 10/06/18 12:04:40 Pastrycook'S Assistant: [id number] Modifier: [id number] 2 <*> Procedure Hernia Repair Internal Laparoscopic 10/06/18 12:04:24 Pastrycook'S Assistant: [id number] Modifier: [id number] 1 <*> Procedure Cholecystectomy Laparoscopic 2 <*> Procedure Hernia Repair Internal Laparoscopic 10/06/18 11:59:20 Pastrycook'S Assistant: [id number] Modifier: [id number] <+> 1 Stop <+> 2 Stop 10/06/18 11:50:13 Pastrycook'S Assistant: [id number] Modifier: [id number] <+> 2 Start 10/06/18 11:47:55 Pastrycook'S Assistant: [id number] Modifier: [id number] <+> 2 Procedure <+> 2 Primary Procedure <+> 2 Specialty <+> 2 Wound Class <+> 2 Anesthesia Type <+> 2 Additional Procedure Description 10/06/18 11:36:39 Pastrycook'S Assistant: [id number] Modifier: [id number] <+> 1 Primary Procedure <+> 1 Primary [...] [facility] IntraOp Time Out Audit 10/06/18 12:10:59 Pastrycook'S Assistant: [id number] Modifier: [id number] 1 <*> Procedure to be Performed Cholecystectomy Laparoscopic 10/06/18 12:10:42 Pastrycook'S Assistant: [id number] Modifier: [id number] 1 <*> Procedure to be Performed Cholecystectomy Laparoscopic, Hernia Repair Internal Laparoscopic 10/06/18 11:48:03 Pastrycook'S Assistant: [id number] Modifier: [id number] 1 <*> Procedure to be Performed Cholecystectomy Laparoscopic Case Comments <None> Finalized By: Mackenzie Freeman Rn Document Signatures Signed By: Mackenzie Freeman Rn 10/06/18 12:11 Electronically signed by Damir [facility] Conversion Manager Aviation Cerner at 12/29/2022 8:16 PM CDT documented in this encounter Plan of Treatment Not on file documented as of this encounter Visit Diagnoses Not on filedocumented in this encounter Care Teams Brim Stretching Machine Operator Relationship Specialty Start Date End Date Jennifer Rowe DO [address] [place] [address] PCP - General Obstetrics and Gynecology 10/11/24 Carolann Marion, TOMI, CNM [address] [place] [address] Electrical Tests Supervisor Certified Nurse Electrical Tests Supervisor 10/11/24 documented as of this encounter
--- OUTSIDE RECORDS SUMMARY | 2025-07-29 17:37 | XMS_ITS | Encounter Summary ---
Author Organization [employer] ([place], [place], [place], [place], [place]) Address [address] [place] [address] Care Team Providers Care Director Diabetes Name Role Phone Jennifer Rowe DO Primary Care Provider [phone] Reji Marion APRN, CN Unavailable [phone] Encounter Details Date Type Department Care Team (Late st Contact Info) Description 10/01/2018 Transcribed Document [facility] [place] Family Medicine [address] [place] [address] ProviderMiguel MD [address] [place] [id number] Social History Tobacco Use Types Packs/Day Years Used Date Smoking Tobacco: Never Assessed Comments Unknown Sex and Gender Information Value Date Recorded Sex Assigned at Not on file Legal Sex Female 5:46 PM CDT Gender Identity Not on file Sexual Orientation Not on file documented as of this encounter Miscellaneous Notes * Cerner Conversion Note - Miguel ProviderMD - 10/01/2018 9:36 AM DESIGN TECH Pre Procedure Adult Entered On: 10/01/2018 9:41 EST Performed On: 10/01/2018 9:36 EST by GUSTAVO MCNEILL RN Height and Weight, Clinical Dosing Height Source : Stated Height Entry Format : [place] Height, Feet : 5 ft(Converted to: 152 cm, 60 Inch) Height, Inches : 0 Inch(Converted to: 0 ft 0 Inch, 0.00 cm) Clinical Height : 152.4 cm Weight Source : Standing scale Weight Entry Format : [place] Clinical Dosing Weight : 78.69 kg Weight, Pounds : 173 lb Weight, Ounces : 2 oz Body Surface Area (BSA) : 1.76 m2 Body Mass Index : 33.9 kg/m2 (HI) [place] Body Weight : 45 kg GUSTAVO MCNEILL [...] Ambulatory Legal Guardian : Mother Support Person/Patient Install And Repair Technician : Yes Want Family/Rep/Phys Notified of Admit : Yes Name/Contact Info Fam/Rep Notified Adm : reji julio Name/Contact Info Physician Notified Adm : edmundo todd Emergency Contact #1 : reji kim Emergency Contact #1 Emergency Contact #1 Relationship : mother Emergency Contact #2 : na Emergency Contact #2 Phone Number : na Emergency Contact #2 Relationship : na Primary Language : German Preferred Communication Mode : Verbal Communication Barrier [...] Scale Risk Level : 0-24 Low Risk [place] Fall Interventions : Adequate lighting, Assistive devices [...] the text rendition version of the form. Electronically signed by Stefany Reich Conversion School Library Media Specialist Cerner at 12/29/2022 8:38 PM CDT documented in this encounter Plan of Treatment Not on file documented as of this encounter Visit Diagnoses Not on filedocumented in this encounter Care Teams Director Diabetes Relationship Specialty Start Date End Date Jennifer Rowe DO [address] [place] [address] PCP - General Obstetrics and Gynecology 10/11/24 Reji Marion, LIMITED RADIOLOGY TECHNICIAN, CNM [address] [place] [address] Police And Fire Dispatcher Certified Nurse Police And Fire Dispatcher 10/11/24 documented as of this encounter
--- OUTSIDE RECORDS SUMMARY | 2025-07-29 17:37 | XMS_ITS | Encounter Summary ---
Author Organization [employer] ([place], [place], [place], [place], [place]) Address [address] [place] [address] Care Team Providers Care Production Sampler Name Role Phone Jennifer Rowe Primary Care Provider [phone] Carolann Marion APRN, CN Unavailable [phone] Encounter Details Date Type Department Care Team (Late st Contact Info) Description 10/01/2018 Transcribed Document [facility] Family Medicine [facility] [address] ProviderMiguel MD [address] [place] [id number] Social History Tobacco Use Types Packs/Day Years Used Date Smoking Tobacco: Never Assessed Comments Unknown Sex and Gender Information Value Date Recorded Sex Assigned at Not on file Legal Sex Female 5:46 PM CDT Gender Identity Not on file Sexual Orientation Not on file documented as of this encounter Miscellaneous Notes * Cerner Conversion Note - Miguel ProviderMD - 10/01/2018 10:17 AM ROLLER SKATE REPAIRER [place] [address], [place] [address] Patient Copy Patient Information: Name: LOVELY HARGROVE Current Date: 10/01/2018 10:17:17 : 1990 Patient Address: [facility] [address] [facility] [address] Patient Attending Physician: GRAHAM TORRES MD Primary Care Provider: JIMENA DAS MD-[facility] Primary Care Provider Discharge Diagnosis: Weight on Admission: 173 lb, 2 oz Comment: Follow-up Instructions: With: Address: When: [facility], [address] [facility] [place], [place] [id number] Business (1) Bariatric Office - PHONE , [address], [address] [place], [place] [id number] Business (1) Within As needed Comments: office [...] Assistance with quitting is available by contacting 6-046-FNLUReach.lyNOW. This is a free resource providing counseling, [...] Be sure to sign up for the [facility] patient portal, which gives you 07/04 access to your medical information ??? including these discharge instructions ??? using your computer, smartphone, or tablet. Just go to [employer] to get started. Questions? Call . [facility] would like to thank you for allowing us to assist you with your healthcare needs. [place] Arce CHRISTINA G, (or litigation claim representative) have received the above patient education materials/instructions and have verbalized understanding: Patient Signature _ Date/Time Patient Furniture Builder Signature (if needed) Date/Time Clinician/Hospital Furniture Builder Signature (if needed) Date/Time Electronically signed by Damir, [facility] Conversion Online Journalist Cerner at 12/29/2022 8:39 PM CDT documented in this encounter Plan of Treatment Not on file documented as of this encounter Visit Diagnoses Not on filedocumented in this encounter Care Teams Production Sampler Relationship Specialty Start Date End Date Jennifer Rowe DO [address] [place] [address] PCP - General Obstetrics and Gynecology 10/11/24 Carolann Marion, TOMI, CNM [address] [place] [address] Almond Grinder Certified Nurse Almond Grinder 10/11/24 documented as of this encounter
[2025-07-29] MEDS: KETOROLAC 15MG/ML VIAL 15 MG IV (17:41)
--- NOTE | 2025-07-29 18:00 | ED_ITS ---
Discharge Plan Disposition Patient Disposition: Home, Self-Care Condition: Good Prescriptions Prescriptions: New methylprednisolone [Medrol (Jaidne)] 4 mg tablets,dose pack See Rx Instructions .ROUTE .COMPLEX Qty: 21 0RF Rx Instructions: for 6 days No Action onioptmdeaolfql-tcrovnjzx-HK [Bromfed DM] 2-30-10 mg/5 mL syrup 5 ml PO Q4-6H PRN (Reason: cold symptoms) Qty: 118 0RF Referrals Follow up/Referrals: Provider,Referral, MD [Primary Care Provider, Medical] - See instructions Activity Restrictions/Add. Instructions Additional Instructions/Restrictions: You may take steroids as indicated on the Medrol Dosepak prescription. Please follow-up with your primary care physician within 1 week. If you develop difficulty opening the jaw, fevers, or pus draining from your cheek and into your mouth please return to the emergency department for further evaluation Clinical Impressions Clinical Impression: Acute parotitis Print Language Print Language: Latvian Discharge ED Provider: Zacarias Szymanski Adult HPI General Chief complaint: PAIN Stated complaint: Swelling on Right side of jaw Time Seen by Provider: 07/29/25 17:08 Mode of Arrival: Ambulatory Source of Information: Patient Description of Symptoms (Recalled from ER Triage Doc. by RN): Complaint of right side facial swelling this am. States that the swelling has went down, however she is having pain when she opens her mouth that radiates up her jaw. History of Present Illness HPI narrative: This is a 35-year-old female patient who is presenting to the emergency department today for evaluation of right sided swelling and the region of the angle of the mandible. Patient states that this onset a couple of hours prior to arrival and is now causing her to have some pain with opening of the jaw. She is not having overt trismus. No sore throat. She does state that she has a chipped tooth in the back of her mouth but this tooth is not particularly painful and she is not having any pain along the gumline. This pain does not ra diate to the ear but it does radiate downwards into the neck. She has not self manipulated her neck or seen a chiropractor. She states that this pain is worse with eating. She tells me that her and her family have recently been passing a viral illness around the house. She has not had the taste of purulence in her mouth. No nuchal rigidity, headaches, or neck stiffness. No fevers Related Data Previous Rx's ?Medication ?Instructions ?Recorded tfiepmfacjeisjj-kfmdijrhklkqyhq-ZZ 5 ml PO Q4-6H PRN c old symptoms 07/20/25 2 mg-30 mg-10 mg/5 mL oral syrup #118 mL (Bromfed DM) methylprednisolone 4 mg tablets in See Rx Instructions PO .COMPLEX 07/29/25 a dose pack (Medrol (Jaiden)) #21 tabs Allergies Allergy/AdvReac Type Severity Reaction Status Date / Time cefprozil Allergy Mild Rash Verified 07/20/25 14:17 [facility] Disclaimer: The information contained in this section may have been updated after the patient was seen, as this information can be updated by other users. Social History (Updated 07/20/25 @ 14:19 by KEVIN Zaman) Smoking Status: Never smoker alcohol intake: never current occupational status: employed Travel in the last 8 weeks?: None Have you lived/traveled outside US in past 30 days?: No Contact w/someone who lives/traveled outside US past 30 days?: No Exposure to someone with infectious disease in past 14 days?: No Do you have a fever (greater than 100.4 F or 38 C)?: No Have you tested positive for COVID-19?: No Exposed to someone with COVID-19 in past 14 days?: No Do you have a sore throat?: No Do you have a cough?: No Do you have any weakness?: No Do you have any diarrhea?: No Are you experiencing any unusual bleeding?: No Do you have any muscle aches/pain?: No Do you have any abdominal pain?: No Are you experiencing loss of taste or smell?: No ROS Obtained: Yes Systems reviewed as appropriate & no additional complaints except as documented Physical Exam General General appearance: other (See MDM) Respiratory Respiratory exam: Present other (See MDM) Cardiovascular Cardiovascular exam: Present other (See MDM) Neurological Exam Neurological exam: Present other (See MDM) Medical Decision Making Medical Records Medical records reviewed: Yes I reviewed the patient's medical records. Screening: Per USPSTF and CDC recommendations, given the prevalence of disease in our [facility], it is our hospital?s policy to screen for HIV and viral Hepatitis for all patients aged 18 and over and those with ongoing risk factors. Nehemias Inquiry Pt receiving controlled substance: No Nehemias was queried for this patient: No Vital Signs: 07/29/25 17:13 Temperature 98.3 F Temperature Source Oral Pulse Rate [Radial] 106 H Respiratory Rate 18 Blood Pressure [Right Arm] 150/101 H Blood Pressure Mean [Right Arm] 117 Blood Pressure Source [Right Arm] Automatic Cuff Blood Pressure Position [Right Arm] Sitting 02 Sat by Pulse Oximetry 100 Oxygen Delivery Method Room Air Lab Data Lab Results 07/29/25 17:41: Serum HCG, Qual Negative, HCV Ab YANCY w/Rflx PCR Qn Negative, HIV Ag/Ab Combo Qual Negative Orders (Tests/Meds): ED MEDICATIONS Discontinued Medications Generic Name Dose Route Start Last Admin Trade Name Freq PRN Reason Stop Dose Admin Iopamidol 75 ml 07/29/25 18:15 07/29/25 18:16 Iopamidol-370 (76%);100ml Bottle IV 07/29/25 18:16 75 ml ONCE ONE Administration Ketorolac Tromethamine 15 mg 07/29/25 17:24 07/29/25 17:41 Ketorolac 15mg/Ml Vial IV 07/29/25 17:25 15 mg ONCE ONE Administration Sodium Chloride 10 ml 07/29/25 18:15 07/29/25 18:16 Sodium Chloride 0.9% 10ml Syr (Rad Only) IV 07/29/25 18:16 10 ml ONCE ONE Administration ORDERS Category Date Time Status CT soft tissue neck w con Stat Cat Scan 07/29/25 17:23 Completed Beta HCG, Qual [HCG Qualitative, Serum] Stat Lab 07/29/25 17:41 Completed HIV Combo Stat Lab 07/29/25 17:41 Completed Hepatitis C Ab Qual. W/ RFX Stat Lab 07/29/25 17:41 Completed Medical Decision Narrative: In summary this a 35-year-old female patient who is presenting to the emergency department today for evaluation of soft tissue swelling along the angle of the mandible near the region of the parotid gland. The patient does not have a history of gastric bypass surgery but otherwise does not have any significant medical history that would impact her medical management or care. On initial evaluation of the patient they were resting comfortably in no acute distress and nontoxic in appearance. They are hemodynamically stable, saturating well room air, and are neurologically intact. On physical examination the patient is appropriately alert and oriented with a GCS of 15. Heart and lungs are clear to auscultation bilaterally. Oropharynx is clear with no asymmetric bulging of the tonsillar pillars and her uvula is midline. No soft palate petechiae. No cobblestoning of the posterior pharynx. She does have an Leggett 1 dental fracture of the right most posterior maxillary molar. There is no tenderness to palpation. There is no fluctuance along the gumline to suggest odontogenic abscess. The patient does not have any evidence of trismus on exam. She does have soft tissue edema that is asymmetric and appreciated over the region of the parotid gland. This clinically does appear consistent with parotitis. I have performed a milking maneuver of the parotid gland and there is no purulence expressed from Stensen's duct to suggest a purulent process Differential diagnosis includes viral parotitis, reactive proctitis, and very un likely pyogenic/superlative parotitis. Shared decision making discussion was held with the patient regarding workup. She wished to proceed with CT scan which I feel is very reasonable. We proceeded with a CT scan and this was interpreted by radiology and demonstrated evidence of inflammation in the region of the right parotid gland consistent with parotitis. No abscess noted on exam. We will treat the patient with a Medrol Dosepak to assist with reduction of inflammation and pain relief. I have asked her to follow-up with her primary care physician within the next week to further monitor resolution of symptoms. At this time all questions have been answered and all parties are agreeable with the decision to discharge home Critical Care Critical Care Time Critical Care Time: No
[2025-07-29 18:06] LABS: HCG Qualitative, Serum Negative (Negative)
[2025-07-29] MEDS: SODIUM CHLORIDE 0.9% 10ML SYR (RAD ONLY) 10 ML IV (18:16)
[2025-07-29] MEDS: IOPAMIDOL-370 (76%);100ML BOTTLE 75 ML IV (18:16)
[2025-07-29 19:06] LABS: Hepatitis C Ab Qual. W/ RFX NEGATIVE (Negative)
[2025-07-29 19:37] VITALS: BP 135/81; PULSE 80; RESP 18; TEMP 36.6; O2SAT 98
== END 2025-07-29 19:38 | disposition home or self-care (01) ==
PROVIDERS: Emergency Provider Student in an Organized Health Care Education/Training Program
DX: K11.21 Acute sialoadenitis (principal)
CPT/HCPCS: 70491; 84703; 86803; 87389; 96374; 99283; 99284; J1885; Q9967